=== PATIENT | female | born 1940 | race Caucasian/White ===

== ENCOUNTER 2020-02-01 07:40 | Outpatient (CLI) | payer MEDICARE, SELFPAY ==
--- NOTE | ~2020-02-01 | XR_ITS ---
XR small bowel follow through DATE: 02/01/2020 09:18 INDICATION: Abdominal pain TECHNIQUE: Serial images of the abdomen following oral ingestion of barium. Spot images of the termin al ileum. 0.2 minutes fluoroscopy time DAP: 8.70 9 images COMPARISON: None FINDINGS: There is normal transit of contrast material through the small bowel, with barium in the co reese within 50 minutes. No stricture, mucosal fold thickening, ulceration, intraluminal mass lesion, d iverticulum or pneumatosis is evident. Spot images of the terminal ileum reveal no abnormality. IMPRESSION: Normal small bowel Reviewed, dictated and finalized at [facility]. Reviewed, dictated and finalized at location A. IMPRESSION: Normal small bowel
[2020-02-01 10:03] LABS: Hematocrit 38.1 % (37.0-47.0); Hemoglobin 12.1 g/dL (12.0-15.0); Mean Corpuscular HGB Conc 31.8 g/dl (32-36); Mean Corpuscular Hemoglobin 29.8 pg (26-34); Mean Corpuscular Volume 93.8 fl (80-100); Mean Platelet Volume 9.1 fl (7.4-10.4); Platelet Count Result 342 k/mm3 (150-375); Red Blood Count 4.06 M/mm3 (4.2-5.4); White Blood Count 5.8 K/mm3 (4.5-10.0)
[2020-02-01 10:23] LABS: Alanine Aminotransferase 44 U/L (4-35); Albumin Level 4.7 g/dL (3.5-5.1); Alkaline Phosphatase 185 U/L (38-126); Aspartate Amino Transferase 44 U/L (14-36); Bilirubin,Total 0.3 mg/dL (0.2-1.3); Blood Urea Nitrogen 18 mg/dL (7-17); Calcium 9.2 mg/dL (8.4-10.2); Carbon Dioxide 30 mmol/L (22-30); Chloride 99 mmol/L (98-107); Estimated Glomerular Filt Rate > 60; Glucose 132 mg/dL (65-105); Lipase 85 U/L (23-300); Potassium 4.2 mmol/L (3.4-5.0); Sodium 134 mmol/L (137-145)
== END 2020-02-01 07:41 | disposition home or self-care (01) ==
PROVIDERS: PCP Internal Medicine; Visit Provider Internal Medicine Gastroenterology
DX: R10.9 Unspecified abdominal pain (principal)
CPT/HCPCS: 36415; 74250; 80053; 83690; 85027

== ENCOUNTER 2020-05-09 13:52 | Emergency (ER) | payer MEDICARE, SELFPAY ==
--- NOTE | ~2020-05-09 | XR_ITS ---
EXAMINATION: XR knee RT 3V DATE: 05/09/2020 14:38 INDICATION: Anterior and posterior right knee pain TECHNIQUE: Anteroposterior, oblique and lateral views of the right knee were obtained COMPARISON: None. FINDINGS: Alignment is normal. No fracture. Joint space appear normal on nonweightbearing imaging. No joint ef fusion/layering lipohemarthrosis. Soft tissues are unremarkable. IMPRESSION: 1. Negative right knee radiographs. Reviewed, dictated and finalized at location A.
[2020-05-09 13:57] VITALS: BP 186/63; PULSE 74; RESP 18; TEMP 36.7; O2SAT 99
--- NOTE | 2020-05-09 15:40 | ED.GENADULT ---
HPI - General Adult General Chief complaint: Extremity Injury, Lower Stated complaint: R leg pain Time Seen by Provider: 05/09/20 15:06 Source: patient History of Present Illness HPI narrative: Patient is a 79 y/o female complaining of sharp right knee pain radiating to right lower leg for several month. She states that pain is worse today. She denies any recent injury. She rates her pain as 5/10 at rest, but her pain is 9/10 when she tries to put weight on her leg. Weight bearing and ambulation aggravates her pain. Related Data Home Medications Medication Instructions Recorded Confirmed clopidogrel 05/09/20 epinephrine 05/09/20 gabapentin 05/09/20 glimepiride mg 05/09/20 glimepiride mg 05/09/20 levothyroxine [Synthroid] 05/09/20 nebivolol [Bystolic] mg 05/09/20 valsartan 05/09/20 Allergies Allergy/AdvReac Type Severity Reaction Status Date / Time codeine AdvReac Intermediate SEVERE Verified 05/09/20 14:20 NAUSEA/VOMITING NSAIDS (Non-Steroidal AdvReac Intermediate NAUSEA AND Verified 05/09/20 14:20 Anti-Inflamma GASTRIC PAIN PENTAZOCINE LACTATE AdvReac Severe UNCONCIOUS Uncoded 05/09/20 14:20 FOR 2 DAYS MEPERIDINE HCL AdvReac Mild Nausea Uncoded 05/09/20 14:20 Review of Systems Constitutional: Constitutional: Denies chills, Denies fever(s), Denies headache(s) and Denies weakness Eyes: Eyes: Denies blurry vision ENT: Denies headache(s) and Denies neck pain Cardiovascular: Cardiovascular: Denies chest pain and Denies dyspnea Respiratory: Respiratory: Denies cough and Denies dyspnea Gastrointestinal: Gastrointestinal: Denies abdominal pain, Denies diarrhea, Denies nausea and Denies vomiting Genitourinary: Genitourinary: Denies hematuria and Denies dysuria Musculoskeletal: Musculoskeletal: Denies back pain, Reports arthralgias (right knee pain) and Denies neck pain Neurologic: Denies headache(s) and Denies weakness [facility] Social History Social History Gender identity (if verbalized by the patient): Female Exam Const: General: no acute distress and well developed Orientation/consciousness: oriented to person, oriented to place, oriented to time and patient oriented x3 HENMT: Head: normocephalic Ears: external ears normal General nose exam: Normal external nose present Eyes: General: appearance normal, both eyes and all related structures Conjunctivae: conjunctivae normal Neck: Neck: normal visual inspection and full ROM Chest: Chest palpation & inspection: normal inspection of the chest and no tenderness Resp: Effort & Inspection: normal respiratory effort and able to speak in complete sentences Cardio: Rate: regular rate Rhythm: regular rhythm GI: GI Palp: No abdominal tenderness and Yes Soft to palpation Skin: General skin exam: normal color and turgor normal Neuro: General: oriented to person, oriented to place, oriented to time and patient oriented x3 Cognition (Neuro): normal cognition Extrem: General: normal to inspection, full ROM and no pedal edema Right lower extremity: knee Details: tenderness Psych: Appearance: grossly normal Mental Status: mental status grossly normal Affect: normal affect Course Reevaluation(s) Reevaluation #1: Advised patient to have labs drawn, but patient refuses. Also offered patient knee brace, however, patient states that she already has one at home. Date: 05/09/20 Vital Signs Vital signs: Vital Signs Temperature 36.7 C 05/09/20 13:57 Pulse Rate 74 05/09/20 13:57 Respiratory Rate 18 05/09/20 13:57 Blood Pressure 186/63 H 05/09/20 13:57 Pulse Oximetry 99 05/09/20 13:57 Temperature 36.7 C 05/09/20 13:57 Pulse Rate 74 05/09/20 13:57 Respiratory Rate 18 05/09/20 13:57 Blood Pressure 186/63 H 05/09/20 13:57 Pulse Oximetry 99 05/09/20 13:57 Medical Decision Making Vital Signs Vital Signs: Vital Signs Temperature 36.7 C 05/09/20 13:57 Pulse Rate 74 05/09/20 13:57
--- NOTE | 2020-05-09 15:52 | PC.NURSE ---
Patient refusing labs to be drawn. Dr. Arnold notified.
== END 2020-05-09 16:20 | disposition home or self-care (01) ==
PROVIDERS: Emergency Provider Emergency Medicine
DX: M25.561 Pain in right knee (principal); I10 Essential (primary) hypertension
CPT/HCPCS: 73562; 99283

== ENCOUNTER 2021-07-08 17:44 | Inpatient (IN) | payer MEDICARE, SELFPAY ==
--- NOTE | ~2021-07-08 | XR_ITS ---
EXAMINATION: XR surgery orthopedic EXAM DATE: 07/10/2021 12:02 INDICATION: LEFT HIP PINNING TECHNIQUE: Fluoroscopy used during left hip lag screw insertion. performed by Jennifer Frost. Radiologist was not present for the imaging or procedure. Total fluoroscopic time of 46.5 second s. The DAP for this procedure was 0.18 mGym2. A total of 3 images sent to PACS from the exam. FINDINGS: Images demonstrate 3 lag screws bridging a left hip subcapital femoral neck fracture. Emily elate with procedure note. IMPRESSION: Fluoroscopy used during left hip subcapital femoral neck fixation. Reviewed, dictated and finalized at location B.
--- NOTE | ~2021-07-08 | XR_ITS ---
EXAMINATION: XR hip LT 2V w AP pelvis DATE: 07/08/2021 21:49 INDICATION: Left hip fracture. TECHNIQUE: An anteroposterior view pelvis and 2 views of left hip were obtained. COMPARISON: Left hip radiographs 06/29/2021 FINDINGS: There is a subcapital fracture of left femoral neck with impaction. There is mild osteoarth ritis of the hips. There is severe lumbar spondylosis. IMPRESSION: 1. Subcapital fracture of left femoral neck. 2. Mild osteoarthritis of the hips. Reviewed, dictated and finalized at location A.
--- NOTE | ~2021-07-08 | XR_ITS ---
EXAMINATION: XR chest 1V DATE: 07/08/2021 21:49 INDICATION: Hypertension. Preop. TECHNIQUE: A single frontal view of the chest was obtained. COMPARISON: Chest single view 01/31/2019 FINDINGS: The patient is rotated to her right. There is no pneumonia, pleural effusion, or pneumothor ax. The heart size is normal. IMPRESSION: 1. No acute cardiopulmonary disease. Reviewed, dictated and finalized at location A.
[2021-07-08 18:13] VITALS: BP 168/82; PULSE 112; RESP 18; TEMP 36.9; O2SAT 98
--- NOTE | 2021-07-08 18:21 | ECG_ITS ---
Measurements Intervals [place] Rate: 103 P: 56 [place]: 159 QRS: 44 QRSD: 97 T: 48 QT: 321 QTc: 421 Interpretive Statements SINUS TACHYCARDIA POSSIBLE LEFT ATRIAL ENLARGEMENT BORDERLINE R WAVE PROGRESSION, ANTERIOR LEADS BORDERLINE ST-T WAVE ABNORMALITY- INF/LAT LEADS BASELINE ARTIFACT- I, III, AVL BORDERLINE ECG Electronically Signed On 07-08-2021 19:06:32 CDT by Panchito Garcia D.O.
[2021-07-08 18:44] LABS: Basophils Absolute Auto 0.1 K/mm3 (0.0-0.1); Basophils Percent Auto 1.2 % (0.2-1.2); Eosinophils Absolute Auto 0.3 K/mm3 (0-0.3); Eosinophils Percent Auto 3.7 % (0-4.4); Hematocrit 36.9 % (37.0-47.0); Immature Granulocyte Absolute 0.02 K/mm3 (0.00-0.031); Immature Granulocyte Percent A 0.3 % (0-0.5); Lymphocytes Absolute Auto 1.84 K/mm3 (0.9-3.2); Lymphocytes Percent Auto 25.4 % (18.3-44.2); Mean Corpuscular HGB Conc 32.5 g/dl (32-36); Mean Corpuscular Hemoglobin 31.6 pg (26-34); Mean Corpuscular Volume 97.1 fl (80-100); Mean Platelet Volume 8.6 fl (7.4-10.4); Monocytes Absolute Auto 0.7 K/mm3 (0.1-0.6); Monocytes Percent Auto 9.4 % (2.6-8.5); Neutrophils Absolute Auto 4.4 K/mm3 (1.3-6.7); Platelet Count Result 412 k/mm3 (150-375); Red Cell Distribution Width 13.3 % (11.5-14.5); White Blood Count 7.3 K/mm3 (4.5-10.0)
[2021-07-08 18:53] LABS: Alanine Aminotransferase 21 U/L (4-35); Albumin Level 4.6 g/dL (3.5-5.1); Alkaline Phosphatase 172 U/L (38-126); Anion Gap 7 mmol/L (8-16); Aspartate Amino Transferase 31 U/L (14-36); Bilirubin,Total 0.3 mg/dL (0.2-1.3); Blood Urea Nitrogen 21 mg/dL (7-17); Calcium 9.5 mg/dL (8.4-10.2); Carbon Dioxide 30 mmol/L (22-30); Chloride 101 mmol/L (98-107); Estimated CRCL calculation 45 ml/min; Estimated Glomerular Filt Rate > 60; Glucose 210 mg/dL (65-110); Potassium 3.8 mmol/L (3.4-5.0); Sodium 138 mmol/L (137-145)
[2021-07-08 21:32] VITALS: BP 175/93; PULSE 86; RESP 18; TEMP 36.7; O2SAT 99
[2021-07-08 22:19] LABS: INR 0.9; Prothrombin Time 12.4 Seconds (11.1-14.7)
[2021-07-08 22:20] LABS: Partial Thromboplastin Time 31.5 SECONDS (22.3-36.8)
--- NOTE | 2021-07-08 22:27 | PC.NURSE ---
Per EDP Marc, no repeat EKG needed.
[2021-07-08] MEDS: MORPHINE SULFATE (*CRX) 4 MG/ML INJ IV PUSH (22:31)
--- NOTE | 2021-07-08 22:43 | ED.LOWEXIN ---
HPI - Extremity Injury (Lower) General Chief Complaint: Extremity Injury, Lower Stated Complaint: fx hip Time Seen by Provider: 07/08/21 21:17 History of Present Illness HPI Narrative: Patient is a 80-year-old female who presents ER with left hip fracture. She fell on 06/17/2021. She had pain and was seen at [facility]. She was told she had a bruise. She later followed up with her PCP on 06/29 who diagnosed her with a subcapital fracture left hip. She attempted to follow-up with an orthopedic surgeon who did not think she needed surgery but then they changed her mind. When she went back to be evaluated to possibly be admitted she waited for over 6 hours and was never seen thus she left. She then contacted Dr. Lopez's office today. He reviewed the images and referred her here for further evaluation. She has had no additional injury. No numbness or tingling to lower extremity. She is trying not to bear weight by using a cane. Related Data Home Medications Medication Instructions Recorded Confirmed clopidogrel 05/09/20 epinephrine 05/09/20 gabapentin 05/09/20 glimepiride mg 05/09/20 glimepiride mg 05/09/20 levothyroxine [Synthroid] 05/09/20 nebivolol [Bystolic] mg 05/09/20 valsartan 05/09/20 Allergies Allergy/AdvReac Type Severity Reaction Status Date / Time codeine AdvReac Intermediate SEVERE Verified 05/09/20 14:20 NAUSEA/VOMITING NSAIDS (Non-Steroidal AdvReac Intermediate NAUSEA AND Verified 05/09/20 14:20 Anti-Inflamma GASTRIC PAIN PENTAZOCINE LACTATE AdvReac Severe UNCONCIOUS Uncoded 05/09/20 14:20 FOR 2 DAYS MEPERIDINE HCL AdvReac Mild Nausea Uncoded 05/09/20 14:20 Review of Systems Review of Systems: All systems reviewed & are unremarkable except as noted in HPI and below Constitutional: Constitutional: Denies chills, Denies fever(s) and Denies weakness Respiratory: Respiratory: Denies cough and Denies dyspnea Gastrointestinal: Gastrointestinal: Denies abdominal pain, Denies nausea and Denies vomiting Musculoskeletal: Musculoskeletal: Reports arthralgias, Denies joint swelling and Denies muscle cramps Neurologic: Denies syncope, Denies focal weakness and Denies numbness [facility] Past Medical History Medical History (Updated 07/08/21 @ 22:53 by Maico Tran MD) CVA (cerebral vascular accident) Diabetes Diverticulitis Hypertension Pancreatitis Surgical History Surgical History (Updated 07/08/21 @ 22:52 by Maico Tran MD) History of appendectomy History of thyroidectomy History of tonsillectomy Social History Social History (Updated 07/08/21 @ 22:50 by Maico Tran MD) Smoking status: Never smoker Gender identity (if verbalized by the patient): Female Exam Narrative: GENERAL: Well-appearing, well-nourished, and in no acute distress. HEAD: Normocephalic, atraumatic. EYES: PERRL and EOMI. CHEST: Clear to auscultation. No respiratory distress. HEART: Regular rate and rhythm. Normal peripheral pulses. ABDOMEN: Soft, nontender, nondistended. EXTREMITIES: No reproducible tenderness at the left hip, left hip most comfortable in passive flexion. Range of motion slightly limited due to pain. No edema. SKIN: Warm, dry, no rash. NEURO: Alert and oriented x3. Course Course Emergency Course: Discussed with orthopedic surgery. N.p.o. at midnight. Admit to hospitalist service. Vital Signs Vital signs: Vital Signs Temperature 98.4 F 07/08/21 18:13 Pulse Rate 112 H 07/08/21 18:13 Respiratory Rate 18 07/08/21 18:13 Blood Pressure 168/82 H 07/08/21 18:13 Pulse Oximetry 98 07/08/21 18:13 Temperature 98.1 F 07/08/21 21:32 Pulse Rate 86 07/08/21 21:32 Respiratory Rate 18 07/08/21 21:32 Blood Pressure 175/93 H 07/08/21 21:32 Pulse Oximetry 99 07/08/21 21:32 MDM - Extremity Injury (Lower) Lab Data Result diagrams: 07/08/21 18:37 07/08/21 18:36 Labs: Lab Results 0
[2021-07-08 22:55] VITALS: BP 163/70; PULSE 91; RESP 18; O2SAT 99
--- NOTE | 2021-07-08 23:15 | PM.IMHP ---
H&P: HPI History of Present Illness Date/Time: 07/08/21 23:15 Chief Complaint: Hip fx Narrative: This is a 80-year-old female with past medical history significant for type 2 diabetes mellitus control with p.o. medications, hypothyroidism, hypertension, stroke, diverticulitis. Patient sustained a mechanical fall on June 16 and has had increasingly worsening pain on her left side hip has been able to bear weight on it however. She was seen and evaluated at outside hospital where x-rays did not show hip fracture and patient was sent home after several days and no improvement of the pain in spite of being on a muscle relaxant and pain medication she went back to see her primary care physician who this time prescribed dilaudid however the latter make her stomach upset and she decided to go see an orthopedic surgeon hold transportation logistics internship stated that her fracture was nonoperable but a 2nd opinion showed that she needs surgery then patient presented to our emergency room. Patient was in her usual state of health up until this. No fevers, no rigors, no chills, no dizziness, no lightheadedness, no chest pain, no shortness of breath, no cough, no sputum production. Preliminary workup was significant for left subcapital hip fracture. Review of Systems Review of Systems: Left hip pain Constitutional: Constitutional: Denies chills, Denies fatigue, Denies fever(s), Denies lethargy and Denies weakness Eyes: Eyes: Denies change in vision ENT: Denies dysphagia, Denies vertigo, Denies dizziness, Denies nasal congestion, Denies nasal discharge, Denies nasal obstruction and Denies odynophagia Cardiovascular: Cardiovascular: Denies irregular heart rhythm, Denies lightheadedness, Denies radiating jaw, neck or arm pain, Denies palpitations, Denies dyspnea and Denies dyspnea on exertion Respiratory: Respiratory: Denies cough, Denies dyspnea and Denies wheezing Gastrointestinal: Gastrointestinal: Denies dyspepsia, Denies heartburn, Denies diarrhea, Denies nausea and Denies vomiting Genitourinary: Genitourinary: Reports no additional female genitourinary complaints Musculoskeletal: Musculoskeletal: Reports arthralgias Comments: Left hip Integumentary/Breasts: Skin/Breast: Reports system reviewed and no additional complaints, except as docu Neurologic: Reports system reviewed and no additional complaints, except as documented Psychiatric: Psychiatric: Reports no additional psychiatric complaints Endocrine: Endocrine: Reports no additional endocrine complaints Hematologic/Lymphatic: Hematologic/Lymphatic: Reports no additional hematologic/lymphatic complaints Allergic/Immunologic: Allergic/Immunologic: Reports no additional allergic/immunologic complaints [facility] Past Medical History Medical History (Updated 07/09/21 @ 03:20 by Willy Miramontes MD) CVA (cerebral vascular accident) Diabetes Diverticulitis Hypertension Pancreatitis Surgical History Surgical History (Updated 07/08/21 @ 22:52 by Maico Tran MD) History of appendectomy History of thyroidectomy History of tonsillectomy Social History Social History (Updated 07/08/21 @ 22:50 by Maico Tran MD) Smoking status: Never smoker Alcohol intake: never Substance use: never Gender identity (if verbalized by the patient): Female Spiritual care concerns: No Meds Home Medications and Allergies Home Medications Medication Instructions Recorded Confirmed Type clopidogrel 05/09/20 History epinephrine 05/09/20 History gabapentin 05/09/20 History glimepiride mg 05/09/20 History glimepiride mg 05/09/20 History levothyroxine [Synthroid] 05/09/20 History nebivolol [Bystolic] mg 05/09/20 History valsartan 05/09/20 History Allergies Allergy/AdvReac Type Severity Reaction Status Date / Time codeine AdvReac Intermediate SEVERE Verified 05/09/20 14:20 NAUSEA/VOMITING NSAIDS (Non-Steroidal AdvReac Intermediate NAUSEA AND Verified 05/09/20 14:20 An
[2021-07-09] MEDS: SODIUM CHLORIDE 0.9% IV 1,000 ML 125 ML IV CONT (00:26)
--- NOTE | 2021-07-09 01:14 | PC.NURSE ---
This patient, Hawa Larson, was admitted to Medical Room 245-. Patient/family oriented to hospital policies and general routines including ID bracelet, bed and alarms, visiting hours, pain management, procedures, bathroom and other care routines, personal items, smoking policy, room service/diet, and visiting hours. Information on how to activate the Rapid Response Team has been discussed. Patient/Family are encouraged to report perceived risks to care and to ask questions if they do not understand what they are told or what they should do.
[2021-07-09 02:00] VITALS: BP 164/59; PULSE 70; RESP 20; TEMP 36.3; O2SAT 98
[2021-07-09 06:00] VITALS: BP 146/70; PULSE 76; RESP 20; TEMP 36.4; O2SAT 98; BMI 23.4
[2021-07-09 08:31] LABS: Hematocrit 32.8 % (37.0-47.0); Hemoglobin 10.5 g/dL (12.0-15.0); Mean Corpuscular Hemoglobin 31.3 pg (26-34); Mean Corpuscular Volume 97.9 fl (80-100); Mean Platelet Volume 8.6 fl (7.4-10.4); Platelet Count Result 347 k/mm3 (150-375); Red Blood Count 3.35 M/mm3 (4.2-5.4); Red Cell Distribution Width 13.2 % (11.5-14.5); White Blood Count 6.4 K/mm3 (4.5-10.0)
[2021-07-09 08:54] LABS: Anion Gap 9 mmol/L (8-16); Blood Urea Nitrogen 14 mg/dL (7-17); Calcium 8.8 mg/dL (8.4-10.2); Carbon Dioxide 29 mmol/L (22-30); Chloride 103 mmol/L (98-107); Estimated CRCL calculation 70 ml/min; Estimated Glomerular Filt Rate > 60; Glucose 167 mg/dL (65-110); Potassium 4.1 mmol/L (3.4-5.0); Sodium 141 mmol/L (137-145)
[2021-07-09 09:19] LABS: Glucose Point of Care 161 mg/dl (65-105)
[2021-07-09] MEDS: SODIUM CHLORIDE 0.9% IV 1,000 ML 65 ML IV CONT (09:39)
--- NOTE | 2021-07-09 10:12 | PM.IMPN ---
Progress Note: A&P Assessment and Plan (1) Fracture of hip: Code(s): S72.009A - Fracture of unspecified part of neck of unspecified femur, initial encounter for closed fracture Status: Acute Assessment and Plan: Secondary to fall which occurred on 06/17/21. She had a collision injury with her granddaughter while playing hide and seek. She has been seen by outside hospital, PCP, and orthopedic surgery with no intervention at this point. Hip/pelvis x-ray showed come subcapital fracture of left femoral neck appreciate orthopedic surgery consultation analgesics available as needed for pain NPO at this time. continue IV fluids while NPO, discontinue once diet is advanced. holding Plavix, will await surgical recommendations (2) Hypertension: Code(s): I10 - Essential (primary) hypertension Status: Inactive Assessment and Plan: blood pressure reviewed and has been slightly elevated above target, likely worsened by pain. Last BP 146/70. Home valsartan is non formulary. Will switch to losartan monitor blood pressure trends and adjust medication regimen as needed (3) Diabetes: Code(s): E11.9 - Type 2 diabetes mellitus without complications Status: Inactive Assessment and Plan: last blood sugar 161 initiate Accu-Cheks, sliding scale insulin, hypoglycemic protocol check updated A1c hold home glimepiride (4) Hypothyroidism: Code(s): E03.9 - Hypothyroidism, unspecified Status: Acute Assessment and Plan: Continue levothyroxine Check TSH Subjective Date/time seen: 07/09/21 10:12 Interval history: Date of service: 07/09/2021 Hawa Larson is a 80-year-old female with history of diabetes mellitus, hypertension, CVA, and pancreatitis who is seen in follow-up for left hip fracture. She reports her hip pain has constantly been between 7-9/10. Currently rated 8/10. She has pain in the hip, groin, and thigh. Pain is worse with movement. She also has low back pain which she relates to being in bed for prolonged time. She denies nausea, vomiting, fever, or chills. She feels very hungry and has not eaten anything today. She had a bowel movement 2 days ago. Denies urinary symptoms But reports she has been urinating frequently due to IV fluids. Denies shortness of breath, cough, chest pain, or palpitations. Review of Systems Review of Systems: All systems reviewed & are unremarkable except as noted in HPI and below Exam Narrative: Ms. Larson is a thin, well-appearing 80-year-old female who is lying supine in bed. she appears comfortable and is in NARD. Neuro: awake, alert and oriented x4, speech clear, no focal neuro deficits noted HEENMT: normocephalic, atraumatic, EOMI, sclerae anicteric, moist oral mucosa Neck: supple, no lymphadenopathy Respiratory: clear to auscultation bilaterally, nonlabored breathing Cardio: regular rate, regular rhythm with S1-S2 Abdomen: nondistended, normoactive bowel sounds, soft, nontender to palpation Extremities: left hip and upper thigh tender to palpation without bruising. BLE no edema, erythema, cyanosis, clubbing, or tenderness to palpation. Neurovascularly intact. DP pulses 2+ bilaterally. Able to wiggle toes bilaterally Skin: no rashes or lesions, warm and dry Psych: appropriate mood and affect, judgment and insight intact Objective Data Vital Signs Vital Signs: Vital Signs - 24 hr 07/08/21 18:13 07/08/21 21:32 07/08/21 22:55 Temperature 98.4 F 98.1 F Pulse Rate 112 H 86 91 Respiratory Rate 18 18 18 Blood Pressure 168/82 H 175/93 H 163/70 H Pulse Oximetry 98 99 99 07/09/21 02:00 07/09/21 06:00 Temperature 97.3 F L 97.6 F Pulse Rate 70 76 Respiratory Rate 20 20 Blood Pressure 164/59 H 146/70 H Pulse Oximetry 98 98 Intake/Output Intake/Output: Intake & Output 07/06/21 07/07/21 07/08/21 07/09/21 23:59 23:59 23:59 23:59 Intake Total 1100 Output
[2021-07-09 11:18] LABS: Hemoglobin A1C 7.8 % (<5.7)
--- NOTE | 2021-07-09 11:59 | PM.CNOR ---
Assessment and Plan Assessment and plan (1) Subcapital fracture of neck of left femur: Qualifiers: Encounter type: initial encounter Fracture type: closed Qualified Code(s): S72.012A - Unspecified intracapsular fracture of left femur, initial encounter for closed fracture Code(s): S72.012A - Unspecified intracapsular fracture of left femur, initial encounter for closed fracture Status: Acute Assessment and Plan: 72-year-old female with an impacted left subcapital femoral neck fracture. This happened three weeks ago so is really subacute. I do believe that pinning in situ is still going to be her best option which will allow for her to progress her activities a bit more quickly. Risks and potential complications were discussed in detail and questions answered. Expected postoperative course reviewed as well. Plan on proceeding tomorrow. Thank you for the consultation. History of Present Illness HPI Consult date: 07/09/21 Consult reason: fracture Chief complaint: Left hip fracture Narrative: 72-year-old female who fell at home when she had a collision with her granddaughter about three weeks ago. She was subsequently x-rayed and found to have an impacted left femoral neck fracture. Ultimately she made her way to the [facility]. She was admitted and is here for further evaluation and treatment of this subacute left femoral neck fracture. No other injuries with this occurrence. Is otherwise reasonably healthy. History of stroke following a concussion several years ago. She is on Plavix chronically. It has been held. Review of Systems Constitutional: Constitutional: Reports no additional constitutional complaints, Denies excessive sweating and Denies fatigue Eyes: Eyes: Reports no additional eye complaints ENT: Reports system reviewed and no additional complaints, except as documented Cardiovascular: Cardiovascular: Denies chest pain at rest Respiratory: Respiratory: Reports no additional respiratory complaints Gastrointestinal: Gastrointestinal: Reports no additional gastrointestinal complaints Musculoskeletal: Musculoskeletal: Reports as per HPI Integumentary/Breasts: Skin/Breast: Reports system reviewed and no additional complaints, except as docu Neurologic: Reports as per HPI Endocrine: Endocrine: Denies excessive sweating Hematologic/Lymphatic: Hematologic/Lymphatic: Denies easy bleeding PMFSH Past Medical History Medical History (Updated 07/09/21 @ 12:06 by Alexander Lopez MD) CVA (cerebral vascular accident) Diabetes Diverticulitis Hypertension Pancreatitis Subcapital fracture of neck of left femur Surgical History Surgical History (Updated 07/09/21 @ 12:02 by Alexander Lopez MD) History of appendectomy History of arthroscopy of right knee History of thyroidectomy History of tonsillectomy Social History Social History Smoking status: Never smoker Alcohol intake: never Substance use: never Gender identity (if verbalized by the patient): Female Spiritual care concerns: No Meds Home Medications and Allergies Home Medications Medication Instructions Recorded Confirmed Type clopidogrel 75 mg PO EVERY OTHER DAY 05/09/20 07/09/21 History gabapentin 100 mg PO BID 05/09/20 07/09/21 History glimepiride 1 mg PO QPM 05/09/20 07/09/21 History glimepiride 2 mg PO DAILY 05/09/20 07/09/21 History levothyroxine [Synthroid] 125 mcg PO DAILY 05/09/20 07/09/21 History valsartan 320 mg PO DAILY 05/09/20 07/09/21 History cetirizine [All Day Allergy 10 mg PO DAILY 07/09/21 07/09/21 History (cetirizine)] diclofenac epolamine 1 patch TRANSDERMAL BID PRN 07/09/21 07/09/21 History Allergies Allergy/AdvReac Type Severity Reaction Status Date / Time codeine AdvReac Intermediate SEVERE Verified 05/09/20 14:20 NAUSEA/VOMITING NSAIDS (Non-Steroidal AdvReac Intermediate NAUSEA AND Verified 05/09/20 14:20
[2021-07-09] MEDS: LOSARTAN POTASSIUM 100 MG TABLET PO (12:13)
[2021-07-09] MEDS: LEVOTHYROXINE SODIUM 125 MCG TABLET PO (12:13)
[2021-07-09] MEDS: GABAPENTIN 100 MG CAPSULE PO ×2 (12:13→17:17)
[2021-07-09 12:38] LABS: Glucose Point of Care 165 mg/dl (65-105)
[2021-07-09 14:00] VITALS: BP 168/84; PULSE 88; RESP 20; TEMP 36.4; O2SAT 98
--- NOTE | 2021-07-09 16:47 | WPDANESEPPF ---
Anes - Initial Pre Proc Eval Procedure: Operation Date: 07/10/21 09:30 Proposed Procedures p Left Hip Pinning - Alexander Lopez MD Date/Time: 07/09/21 16:47 Surgeon: Kassie Sandoval PA-C Pre Op Diagnosis: Left hip fracture Patient Data Age: 80 Gender: F Height: 1.65 m Weight: 64 kg Last Vital Signs Temp 36.4 C 07/09/21 14:00 Pulse 88 07/09/21 14:00 Resp 20 07/09/21 14:00 BP 168/84 H 07/09/21 14:00 Pulse Ox 98 07/09/21 14:00 Allergies Allergy/AdvReac Type Severity Reaction Status Date / Time codeine AdvReac Intermediate SEVERE Verified 05/09/20 14:20 NAUSEA/VOMITING NSAIDS (Non-Steroidal AdvReac Intermediate NAUSEA AND Verified 05/09/20 14:20 Anti-Inflamma GASTRIC PAIN PENTAZOCINE LACTATE AdvReac Severe UNCONCIOUS Uncoded 05/09/20 14:20 FOR 2 DAYS MEPERIDINE HCL AdvReac Mild Nausea Uncoded 05/09/20 14:20 Home Medications Medication Instructions Recorded Confirmed Type clopidogrel 75 mg PO EVERY OTHER DAY 05/09/20 07/09/21 History gabapentin 100 mg PO BID 05/09/20 07/09/21 History glimepiride 1 mg PO QPM 05/09/20 07/09/21 History glimepiride 2 mg PO DAILY 05/09/20 07/09/21 History levothyroxine [Synthroid] 125 mcg PO DAILY 05/09/20 07/09/21 History valsartan 320 mg PO DAILY 05/09/20 07/09/21 History cetirizine [All Day Allergy 10 mg PO DAILY 07/09/21 07/09/21 History (cetirizine)] diclofenac epolamine 1 patch TRANSDERMAL BID PRN 07/09/21 07/09/21 History Laboratory Tests 07/08/21 07/08/21 07/08/21 18:36 18:37 22:04 WBC 7.3 K/mm3 K/mm3 (4.5-10.0) RBC 3.80 M/mm3 L M/mm3 (4.2-5.4) Hgb 12.0 g/dL g/dL (12.0-15.0) Hct 36.9 % L % (37.0-47.0) MCV 97.1 fl fl (80-100) MCH 31.6 pg pg (26-34) MCHC 32.5 g/dl g/dl (32-36) RDW 13.3 % % (11.5-14.5) Plt Count 412 k/mm3 H k/mm3 (150-375) MPV 8.6 fl fl (7.4-10.4) Immature Gran % (Auto) 0.3 % % (0-0.5) Neut % (Auto) 60.0 % % (45.5-73.1) Lymph % (Auto) 25.4 % % (18.3-44.2) [place] % (Auto) 9.4 % H % (2.6-8.5) Eos % (Auto) 3.7 % % (0-4.4) Baso % (Auto) 1.2 % % (0.2-1.2) Lymph # (Auto) 1.84 K/mm3 K/mm3 (0.9-3.2) [place] # (Auto) 0.7 K/mm3 H K/mm3 (0.1-0.6) Eos # (Auto) 0.3 K/mm3 K/mm3 (0-0.3) Baso # (Auto) 0.1 K/mm3 K/mm3 (0.0-0.1) Abs Immat Gran (auto) 0.02 K/mm3 K/mm3 (0.00-0.031) Absolute Neuts (auto) 4.4 K/mm3 K/mm3 (1.3-6.7) Absolute Nucleated RBC 0.0 K/mm3 K/mm3 (0.0-0.012) Nucleated RBC % 0.0 % % (0.0-0.2) PT 12.4 Seconds Seconds (11.1-14.7) INR 0.9 APTT 31.5 SECONDS SECONDS (22.3-36.8) Sodium 138 mmol/L mmol/L (137-145) Potassium 3.8 mmol/L mmol/L (3.4-5.0) Chloride 101 mmol/L mmol/L (98-107) Carbon Dioxide 30 mmol/L mmol/L (22-30) Anion Gap 7 mmol/L L mmol/L (8-16) BUN 21 mg/dL H mg/dL (7-17) Creatinine 0.80 mg/dL mg/dL (0.7-1.0) Estim Creat Clear Calc 45 ml/min ml/min Estimated GFR > 60 (59 - ) Glucose 210 mg/dL H mg/dL (65-110) POC Capillary Glucose Hemoglobin A1c Calcium 9.5 mg/dL mg/dL (8.4-10.2) Total Bilirubin 0.3 mg/dL mg/dL (0.2-1.3) AST 31 U/L U/L (14-36) ALT 21 U/L U/L (4-35) Alkaline Phosphatase 172 U/L H U/L (38-126) Total Protein 8.0 g/dL g/dL (6.3-8.2) Albumin 4.6 g/dL g/dL (3.5-5.1) 07/09/21 07/09/21 07/09/21 08:26 08:26 08:26 WBC 6.4 K/mm3 K/mm3 (4.5-10.0) RBC 3.35 M/mm3 L M/mm3 (4.2-5.4) Hgb 10.5 g/dL L g/dL (12.0-15.0) Hct 32.8 % L % (37.0-47.0) MCV 97.9 fl fl (80-100) MCH 31.3 pg pg (26-34
[2021-07-09] MEDS: HYDROcodone/acetaminophen (*CRX) 10-325 MG TABLET 1 TAB PO ×2 (17:16→23:25)
[2021-07-09] MEDS: INSULIN ASPART (*BKC) 100 UNITS/ML SUB-Q (17:27)
[2021-07-09 17:33] LABS: Glucose Point of Care 202 mg/dl (65-105)
--- NOTE | 2021-07-09 17:36 | WPDANESEPP ---
Anes - Eval Pre Procedure Procedure: Operation Date: 07/10/21 09:30 Proposed Procedures p Left Hip Pinning - Alexander Lopez MD Date/Time: 07/09/21 17:36 Pre Op Diagnosis: Left hip fracture Patient Data Age: 80 Gender: F Height: 1.65 m Weight: 64 kg Last Vital Signs Temp 97.6 F 07/09/21 14:00 Pulse 88 07/09/21 14:00 Resp 20 07/09/21 14:00 BP 168/84 H 07/09/21 14:00 Pulse Ox 98 07/09/21 14:00 Allergies Allergy/AdvReac Type Severity Reaction Status Date / Time codeine AdvReac Intermediate SEVERE Verified 05/09/20 14:20 NAUSEA/VOMITING NSAIDS (Non-Steroidal AdvReac Intermediate NAUSEA AND Verified 05/09/20 14:20 Anti-Inflamma GASTRIC PAIN PENTAZOCINE LACTATE AdvReac Severe UNCONCIOUS Uncoded 05/09/20 14:20 FOR 2 DAYS MEPERIDINE HCL AdvReac Mild Nausea Uncoded 05/09/20 14:20 Home Medications Medication Instructions Recorded Confirmed Type clopidogrel 75 mg PO EVERY OTHER DAY 05/09/20 07/09/21 History gabapentin 100 mg PO BID 05/09/20 07/09/21 History glimepiride 1 mg PO QPM 05/09/20 07/09/21 History glimepiride 2 mg PO DAILY 05/09/20 07/09/21 History levothyroxine [Synthroid] 125 mcg PO DAILY 05/09/20 07/09/21 History valsartan 320 mg PO DAILY 05/09/20 07/09/21 History cetirizine [All Day Allergy 10 mg PO DAILY 07/09/21 07/09/21 History (cetirizine)] diclofenac epolamine 1 patch TRANSDERMAL BID PRN 07/09/21 07/09/21 History Laboratory Tests 07/08/21 07/08/21 07/08/21 18:36 18:37 22:04 WBC 7.3 K/mm3 K/mm3 (4.5-10.0) RBC 3.80 M/mm3 L M/mm3 (4.2-5.4) Hgb 12.0 g/dL g/dL (12.0-15.0) Hct 36.9 % L % (37.0-47.0) MCV 97.1 fl fl (80-100) MCH 31.6 pg pg (26-34) MCHC 32.5 g/dl g/dl (32-36) RDW 13.3 % % (11.5-14.5) Plt Count 412 k/mm3 H k/mm3 (150-375) MPV 8.6 fl fl (7.4-10.4) Immature Gran % (Auto) 0.3 % % (0-0.5) Neut % (Auto) 60.0 % % (45.5-73.1) Lymph % (Auto) 25.4 % % (18.3-44.2) [place] % (Auto) 9.4 % H % (2.6-8.5) Eos % (Auto) 3.7 % % (0-4.4) Baso % (Auto) 1.2 % % (0.2-1.2) Lymph # (Auto) 1.84 K/mm3 K/mm3 (0.9-3.2) [place] # (Auto) 0.7 K/mm3 H K/mm3 (0.1-0.6) Eos # (Auto) 0.3 K/mm3 K/mm3 (0-0.3) Baso # (Auto) 0.1 K/mm3 K/mm3 (0.0-0.1) Abs Immat Gran (auto) 0.02 K/mm3 K/mm3 (0.00-0.031) Absolute Neuts (auto) 4.4 K/mm3 K/mm3 (1.3-6.7) Absolute Nucleated RBC 0.0 K/mm3 K/mm3 (0.0-0.012) Nucleated RBC % 0.0 % % (0.0-0.2) PT 12.4 Seconds Seconds (11.1-14.7) INR 0.9 APTT 31.5 SECONDS SECONDS (22.3-36.8) Sodium 138 mmol/L mmol/L (137-145) Potassium 3.8 mmol/L mmol/L (3.4-5.0) Chloride 101 mmol/L mmol/L (98-107) Carbon Dioxide 30 mmol/L mmol/L (22-30) Anion Gap 7 mmol/L L mmol/L (8-16) BUN 21 mg/dL H mg/dL (7-17) Creatinine 0.80 mg/dL mg/dL (0.7-1.0) Estim Creat Clear Calc 45 ml/min ml/min Estimated GFR > 60 (59 - ) Glucose 210 mg/dL H mg/dL (65-110) POC Capillary Glucose Hemoglobin A1c Calcium 9.5 mg/dL mg/dL (8.4-10.2) Total Bilirubin 0.3 mg/dL mg/dL (0.2-1.3) AST 31 U/L U/L (14-36) ALT 21 U/L U/L (4-35) Alkaline Phosphatase 172 U/L H U/L (38-126) Total Protein 8.0 g/dL g/dL (6.3-8.2) Albumin 4.6 g/dL g/dL (3.5-5.1) 07/09/21 07/09/21 07/09/21 08:26 08:26 08:26 WBC 6.4 K/mm3 K/mm3 (4.5-10.0) RBC 3.35 M/mm3 L M/mm3 (4.2-5.4) Hgb 10.5 g/dL L g/dL (12.0-15.0) Hct 32.8 % L % (37.0-47.0) MCV 97.9 fl fl (80-100) MCH 31.3 pg pg (26-34) MCHC 32.0 g/dl g/dl (32-
[2021-07-09 21:43] VITALS: BP 180/85; PULSE 88; RESP 16; TEMP 36.1; O2SAT 100
[2021-07-09 22:02] LABS: Glucose Point of Care 190 mg/dl (65-105)
[2021-07-09] MEDS: VALSARTAN 160 MG TABLET 320 MG PO (22:07)
[2021-07-10] VITALS (18 sets, daily range): BP systolic 143–210; BP diastolic 66–98; PULSE 78–103; RESP 12–20; TEMP 36.1–36.9; O2SAT 90–100
[2021-07-10] MEDS: FUROSEMIDE INJ 40 MG/4 ML VIAL IV PUSH (00:59)
[2021-07-10] MEDS: HYDROmorphone HCL INJ (*CRX) 1 MG/ML SYR 0.5 MG IV PUSH (03:40)
[2021-07-10 06:06] LABS: Hematocrit 34.1 % (37.0-47.0); Mean Corpuscular HGB Conc 32.3 g/dl (32-36); Mean Corpuscular Hemoglobin 30.6 pg (26-34); Mean Corpuscular Volume 94.7 fl (80-100); Mean Platelet Volume 8.5 fl (7.4-10.4); Platelet Count Result 387 k/mm3 (150-375); White Blood Count 8.3 K/mm3 (4.5-10.0)
[2021-07-10 06:23] LABS: Anion Gap 8 mmol/L (8-16); Blood Urea Nitrogen 14 mg/dL (7-17); Calcium 9.3 mg/dL (8.4-10.2); Carbon Dioxide 27 mmol/L (22-30); Chloride 104 mmol/L (98-107); Estimated CRCL calculation 51 ml/min; Estimated Glomerular Filt Rate > 60; Glucose 186 mg/dL (65-110); Potassium 3.8 mmol/L (3.4-5.0); Sodium 139 mmol/L (137-145)
[2021-07-10 08:37] LABS: Glucose Point of Care 160 mg/dl (65-105)
[2021-07-10] MEDS: VALSARTAN 160 MG TABLET 320 MG PO (08:47)
--- NOTE | 2021-07-10 10:32 | WPDHPUPDATE1 ---
History and Physical Update Update Date/Time: 07/10/21 10:32 History and Physical has been reviewed, including an updated exam of the patient. There are NO changes in the patient's condition. Risks, benefits, and alternatives have been discussed and questions answered. Patient agrees to proceed with procedure.
[2021-07-10] MEDS: LACTATED RINGERS 1,000 ML 30 ML IV CONT (12:15)
[2021-07-10 12:29] LABS: Glucose Point of Care 208 mg/dl (65-105)
[2021-07-10] MEDS: fentaNYL CITRATE INJ (*CRX) 100 MCG/2 ML VIAL 25 MCG IV PUSH ×4 (12:39→12:48)
--- NOTE | 2021-07-10 12:42 | W.PM.PROC2 ---
Procedure Note - Detailed Date of Procedure 07/10/21 Pre-op Diagnosis Left Subcapital femoral neck fracture Post-op Diagnosis same Procedure Performed pinning in situ left femoral neck fracture Surgeon Alexander Lopez MD Electronics Tech Debbie Rodriguez Anesthesia general Description of Procedure the patient was identified and proper site identified. She was taken to the operating room and after general anesthetic induction and intubation, she was transferred to the [place] table position her supine in the usual manner for fixation of a left hip fracture. Care was taken to properly pad and position her torso extremities. The position of the fracture was inspected fluoroscopically in the AP and lateral views and noted to be unchanged. The left hip and thigh was prepped and draped in usual sterile fashion. 10 cc of 0.25% Marcaine epinephrine solution was infiltrated into the subcutaneous tissue in the area of the incision. A short longitudinal incision was made over the proximal aspect of the femur. Subcutaneous tissue sharply dissected down to the ITB band which was divided in line with the incision. Under fluoroscopic guidance, three pins were placed in the femoral neck and head over which 36.5 mm cannulated screws were placed and the pins removed. Overall hardware placement was assessed fluoroscopically on the AP and lateral views and noted to be satisfactory. Wound was irrigated with sterile saline. IT band was reapproximated with 0 Vicryl as was the deeper layers of the subcutaneous tissue. Skin reapproximated with three 0 Monocryl and then camilo. Sterile dressing was applied. She tolerated the procedure well. She was awakened, extubated, transferred back to bed and taken to recovery area in stable condition. There were no known intraoperative complications. Estimated blood loss was negligible. She received perioperative antibiotics. Estimated Blood Loss 10 Urine Output 2,000 Drains No Packing No Pathology none sent Complications No immediate complications Condition stable Disposition PACU
[2021-07-10] MEDS: ONDANSETRON INJ 4 MG/2 ML VIAL IV PUSH ×3 (13:09→19:01)
[2021-07-10 14:20] LABS: Glucose Point of Care 188 mg/dl (65-105)
[2021-07-10] MEDS: SODIUM CHLORIDE 0.9% IV 1,000 ML 125 ML IV CONT (14:28)
--- NOTE | 2021-07-10 14:31 | PM.IMPN ---
Progress Note: A&P Assessment and Plan (1) Fracture of hip: Code(s): S72.009A - Fracture of unspecified part of neck of unspecified femur, initial encounter for closed fracture Status: Deleted Assessment and Plan: Secondary to fall which occurred on 06/17/21. She had a collision injury with her granddaughter while playing hide and seek. Hip/pelvis x-ray showed come subcapital fracture of left femoral neck. She had left femoral neck pinning performed on 07/09/[address] Lopez. she tolerated the procedure well. appreciate orthopedic surgery consultation analgesics available as needed for pain continue PT/OT hopefully discharge home. Patient is motivated and wishes to return home Plavix on hold perioperatively. Will resume tomorrow, discussed with Dr. Lopez. she has also been started on aspirin 325 mg daily and will plan to continue this for 6 weeks. (2) Hypertension: Code(s): I10 - Essential (primary) hypertension Status: Inactive Assessment and Plan: blood pressure reviewed and has been slightly elevated above target, likely worsened by pain. Last BP 153/70 Continue home valsartan Will discontinue IV fluids issues tolerating p.o. intake. Monitor blood pressure trends and adjust medication regimen as needed (3) Diabetes: Code(s): E11.9 - Type 2 diabetes mellitus without complications Status: Inactive Assessment and Plan: A1c is 7.8. Blood sugars reviewed and have been reasonably controlled. Continue Accu-Cheks, sliding scale insulin, hypoglycemic protocol Hold home glimepiride (4) Hypothyroidism: Code(s): E03.9 - Hypothyroidism, unspecified Status: Acute Assessment and Plan: TSH is within normal limits Continue levothyroxine Subjective Date/time seen: 07/10/21 14:31 Interval history: Date of service: 07/10/2021 Hawa Larson is a 80-year-old female with history of diabetes mellitus, hypertension, CVA, and pancreatitis who is seen in follow-up for left hip fracture. She is doing fairly well today. She tolerated procedure well but is having a fair amount of nausea postoperatively. She has not eaten anything because she fears she would vomit. She has been able to tolerate sips of water. She was able to get up and use the walker with therapy this afternoon and tolerated this well. She currently rates her hip pain is 8/10. Denies dizziness, lightheadedness, weakness, shortness of breath, cough, chest pain. She has been able to urinate postoperatively and is passing gas but has not had a bowel movement. She wishes to go home after discharge. Review of Systems Review of Systems: All systems reviewed & are unremarkable except as noted in HPI and below Exam Narrative: Ms. Larson is a thin, well-appearing 80-year-old female who is sitting in a chair by the bedside. she appears comfortable and is in NARD. Neuro: awake, alert and oriented x4, speech clear, no focal neuro deficits noted HEENMT: normocephalic, atraumatic, EOMI, sclerae anicteric, moist oral mucosa Neck: supple, no lymphadenopathy Respiratory: clear to auscultation bilaterally, nonlabored breathing Cardio: regular rate, regular rhythm with S1-S2 Abdomen: nondistended, normoactive bowel sounds, soft, nontender to palpation Extremities: left hip and upper thigh tender to palpation without bruising. BLE no edema, erythema, or tenderness to palpation. Wearing Brien hose. Neurovascularly intact. DP pulses 2+ bilaterally. Able to wiggle toes bilaterally Skin: no rashes or lesions, warm and dry Psych: appropriate mood and affect, judgment and insight intact Objective Data Vital Signs Vital Signs: Vital Signs - 24 hr 07/09/21 21:43 07/10/21 00:44 07/10/21 03:30 Temperature 97.0 F L 97.1 F L Pulse Rate 88 91 103 H Respiratory Rate 16 16 Blood Pressure 180/85 H 210/98 H 174/90 H Pulse Oximetry 100 99 07/10/21 05:56 07/10/21 06:57 0
[2021-07-10] MEDS: oxyCODONE HCL (*CRX) 5 MG TAB IR PO (14:35)
[2021-07-10 17:46] LABS: Glucose Point of Care 250 mg/dl (65-105)
[2021-07-10] MEDS: INSULIN ASPART (*BKC) 100 UNITS/ML SUB-Q (18:07)
[2021-07-10] MEDS: ceFAZolin 2 GM/D5W 50 ML 2 GM/50 ML BAG IVPB (18:07)
[2021-07-10] MEDS: GABAPENTIN 100 MG CAPSULE PO (18:08)
[2021-07-10] MEDS: ACETAMINOPHEN 325 MG TABLET 650 MG PO (18:59)
[2021-07-10] MEDS: FAMOTIDINE 20 MG TABLET PO (20:48)
[2021-07-10] MEDS: hydrOXYzine pamoate 25 MG CAPSULE 50 MG PO (20:51)
[2021-07-10 20:55] LABS: Glucose Point of Care 227 mg/dl (65-105)
[2021-07-10] MEDS: METOCLOPRAMIDE HCL INJ 10 MG/2 ML VIAL IV PUSH (21:34)
[2021-07-11 00:38] VITALS: BP 149/68; PULSE 100; RESP 16; TEMP 36.8; O2SAT 100
[2021-07-11] MEDS: oxyCODONE HCL (*CRX) 5 MG TAB IR PO ×2 (01:33→05:42)
[2021-07-11] MEDS: ONDANSETRON INJ 4 MG/2 ML VIAL IV PUSH (01:34)
[2021-07-11] MEDS: ceFAZolin 2 GM/D5W 50 ML 2 GM/50 ML BAG IVPB ×2 (02:47→10:55)
[2021-07-11] MEDS: hydrOXYzine pamoate 25 MG CAPSULE 50 MG PO ×2 (02:48→08:47)
[2021-07-11 03:30] VITALS: BP 150/72; PULSE 82; RESP 18; TEMP 36.4; O2SAT 100
[2021-07-11 06:52] LABS: Basophils Percent Auto 0.2 % (0.2-1.2); Eosinophils Absolute Auto 0.1 K/mm3 (0-0.3); Eosinophils Percent Auto 0.5 % (0-4.4); Hematocrit 30.8 % (37.0-47.0); Immature Granulocyte Absolute 0.04 K/mm3 (0.00-0.031); Immature Granulocyte Percent A 0.3 % (0-0.5); Lymphocytes Absolute Auto 1.57 K/mm3 (0.9-3.2); Lymphocytes Percent Auto 12.8 % (18.3-44.2); Mean Corpuscular HGB Conc 32.5 g/dl (32-36); Mean Corpuscular Hemoglobin 30.9 pg (26-34); Mean Corpuscular Volume 95.1 fl (80-100); Mean Platelet Volume 9.1 fl (7.4-10.4); Monocytes Absolute Auto 1.6 K/mm3 (0.1-0.6); Monocytes Percent Auto 12.7 % (2.6-8.5); Neutrophils Absolute Auto 9.1 K/mm3 (1.3-6.7); Neutrophils Percent Auto 73.5 % (45.5-73.1); Platelet Count Result 364 k/mm3 (150-375); Red Blood Count 3.24 M/mm3 (4.2-5.4); Red Cell Distribution Width 12.9 % (11.5-14.5); White Blood Count 12.3 K/mm3 (4.5-10.0)
[2021-07-11 07:02] LABS: Anion Gap 7 mmol/L (8-16); Blood Urea Nitrogen 14 mg/dL (7-17); Calcium 8.8 mg/dL (8.4-10.2); Carbon Dioxide 27 mmol/L (22-30); Chloride 99 mmol/L (98-107); Estimated CRCL calculation 59 ml/min; Estimated Glomerular Filt Rate > 60; Glucose 180 mg/dL (65-110); Potassium 3.8 mmol/L (3.4-5.0); Sodium 133 mmol/L (137-145)
[2021-07-11 07:30] VITALS: BP 136/52; PULSE 85; RESP 16; TEMP 35.9; O2SAT 100
[2021-07-11 08:42] LABS: Glucose Point of Care 173 mg/dl (65-105)
[2021-07-11] MEDS: VALSARTAN 160 MG TABLET 320 MG PO (08:47)
[2021-07-11] MEDS: GABAPENTIN 100 MG CAPSULE PO (08:48)
[2021-07-11] MEDS: CLOPIDOGREL BISULFATE 75 MG TABLET PO (08:48)
[2021-07-11] MEDS: ASPIRIN 325 MG ENTERIC TABLET PO (08:48)
[2021-07-11] MEDS: DOCUSATE SODIUM 100 MG CAPSULE PO (08:48)
[2021-07-11] MEDS: FAMOTIDINE 20 MG TABLET PO (08:48)
--- NOTE | 2021-07-11 09:06 | PM.PNORT ---
Progress Note: A&P Assessment and Plan (1) Subcapital fracture of neck of left femur: Qualifiers: Encounter type: initial encounter Fracture type: closed Qualified Code(s): S72.012A - Unspecified intracapsular fracture of left femur, initial encounter for closed fracture Code(s): S72.012A - Unspecified intracapsular fracture of left femur, initial encounter for closed fracture Status: Acute Assessment and Plan: 72-year-old female postop day one left hip pinning in situ for subacute left subcapital femoral neck fracture. Overall she is doing well. She is completely lucid and has a firm grasp on what the issues are. She would like to be able to be discharged home which I think could be carried out later today. I do need to see her in approximately two weeks for staple removal. Instructions were reviewed with her in detail and also placed into the chart. Plan will be for her to use scheduled Tylenol for pain with tramadol for breakthrough pain. Zofran prescription provided for nausea. I would like for her to try a coated baby aspirin to take along with the Plavix which I want her to use daily for the next six weeks before going back to the every other day. Should there be any questions prior to follow-up, she was instructed to contact my office. Subjective Subjective Date/Time Seen: 07/11/21 09:06 Post Op day: 1 Principal diagnosis: subacute left subcapital femoral neck fracture Interval history: 72-year-old female who underwent pinning in situ of a subacute left subcapital femoral neck fracture yesterday. She did experience some nausea yesterday but it has improved today. Her main complaint is soreness at the surgical site in her left proximal thigh. Exam Const: General: cooperative, no acute distress and alert Nutritional Appearance: other Orientation/consciousness: patient oriented x3 Limitations: no limitations HENMT: Head: normal to inspection Ears: hearing grossly normal bilaterally Face and sinus: face symmetric Mouth: Yes moist mucous membranes Teeth and gingiva: fair dentition Eyes: Alignment and Position: alignment normal and position normal Neck: Neck: normal visual inspection Resp: Effort & Inspection: normal respiratory effort and able to speak in complete sentences GI: Inspection: other ( Nondistended) Skin: General skin exam: normal color Rashes: no rashes Neuro: General: patient oriented x3 Cognition (Neuro): normal cognition Speech: normal speech Gait exam (Neuro): Other gait observations present Extrem: General: normal to inspection and other Other: Exam of the left thigh shows dry dressing. Minimal swelling at the surgical site. Some soft tissue tenderness appreciated. Grossly, motor and sensory function intact left lower extremity but exam limited secondary to discomfort. Calves negative. Psych: Appearance: grossly normal Mental Status: mental status grossly normal Objective Data Vital Signs Vital Signs: Vital Signs - 24 hr 07/10/21 09:27 07/10/21 12:15 07/10/21 12:30 Temperature 97.3 F L 97 F L Pulse Rate 80 85 84 Respiratory Rate 20 12 20 Blood Pressure 164/68 H 152/66 H 151/69 H Pulse Oximetry 98 100 99 07/10/21 12:45 07/10/21 13:00 07/10/21 13:15 Temperature 98.2 F Pulse Rate 80 80 79 Respiratory Rate 18 14 14 Blood Pressure 165/74 H 154/68 H 156/72 H Pulse Oximetry 98 93 94 07/10/21 13:30 07/10/21 13:43 07/10/21 13:45 Temperature 97.6 F Pulse Rate 83 85 96 Respiratory Rate 14 16 16 Blood Pressure 157/68 H 153/70 H 171/79 H Pulse Oximetry 92 96 90 07/10/21 14:00 07/10/21 14:30 07/10/21 15:30 Temperature 97.6 F 97.4 F L 97.9 F Pulse Rate 94 90 83 Respiratory Rate 16 18 20 Blood Pressure 169/81 H 164/81 H 170/74 H Pulse Oximetry 94 94 95 07/10/21 19:30 07/11/21 00:38 07/11/21 03:30 Temperature 98.5 F 98.3 F 97.6 F Pulse Rate 78 100 82 Respiratory Rate 16 16 18 Blood Pressure 143/73 H 149/68 H 150/72 H Pulse
--- NOTE | 2021-07-11 10:24 | WPDANESPN ---
Anes - Prog Note Post-Op Date/Time: 07/11/21 10:24 Cardiovascular status: normal Respiratory status: normal Airway patency: baseline Mental status: baseline Post-Op hydration status: normal Vital Signs: Last Vital Signs Temp 35.9 C L 07/11/21 07:30 Pulse 85 07/11/21 07:30 Resp 16 07/11/21 07:30 BP 136/52 L 07/11/21 07:30 Pulse Ox 100 07/11/21 07:30 Pain Score (VAS): 3 I/O: Intake & Output 07/10/21 07/11/21 07/11/21 23:59 07:59 15:59 Intake Total 50 550 240 Output Total 300 300 Balance -250 250 240 Laboratory Tests 07/11/21 05:39 07/11/21 05:39 07/10/21 07/10/21 07/10/21 12:26 14:18 17:42 WBC RBC Hgb Hct MCV MCH MCHC RDW Plt Count MPV Immature Gran % (Auto) Neut % (Auto) Lymph % (Auto) [place] % (Auto) Eos % (Auto) Baso % (Auto) Lymph # (Auto) [place] # (Auto) Eos # (Auto) Baso # (Auto) Abs Immat Gran (auto) Absolute Neuts (auto) Absolute Nucleated RBC Nucleated RBC % Sodium Potassium Chloride Carbon Dioxide Anion Gap BUN Creatinine Estim Creat Clear Calc Estimated GFR Glucose POC Capillary Glucose 208 H 188 H 250 H Calcium 07/10/21 07/11/21 07/11/21 20:50 05:39 05:39 WBC 12.3 H RBC 3.24 L Hgb 10.0 L Hct 30.8 L MCV 95.1 MCH 30.9 MCHC 32.5 RDW 12.9 Plt Count 364 MPV 9.1 Immature Gran % (Auto) 0.3 Neut % (Auto) 73.5 H Lymph % (Auto) 12.8 L [place] % (Auto) 12.7 H Eos % (Auto) 0.5 Baso % (Auto) 0.2 Lymph # (Auto) 1.57 [place] # (Auto) 1.6 H Eos # (Auto) 0.1 Baso # (Auto) 0.0 Abs Immat Gran (auto) 0.04 H Absolute Neuts (auto) 9.1 H Absolute Nucleated RBC 0.0 Nucleated RBC % 0.0 Sodium 133 L Potassium 3.8 Chloride 99 Carbon Dioxide 27 Anion Gap 7 L BUN 14 Creatinine 0.60 L Estim Creat Clear Calc 59 Estimated GFR > 60 Glucose 180 H POC Capillary Glucose 227 H Calcium 8.8 07/11/21 07:26 WBC RBC Hgb Hct MCV MCH MCHC RDW Plt Count MPV Immature Gran % (Auto) Neut % (Auto) Lymph % (Auto) [place] % (Auto) Eos % (Auto) Baso % (Auto) Lymph # (Auto) [place] # (Auto) Eos # (Auto) Baso # (Auto) Abs Immat Gran (auto) Absolute Neuts (auto) Absolute Nucleated RBC Nucleated RBC % Sodium Potassium Chloride Carbon Dioxide Anion Gap BUN Creatinine Estim Creat Clear Calc Estimated GFR Glucose POC Capillary Glucose 173 H Calcium Post-procedural complaints: none Patient Feedback: Patient satisfied with anesthetic care.
--- NOTE | 2021-07-11 11:55 | PM.DS ---
DS: Admitting Diagnosis Admitting Diagnosis Left hip fracture DS: Discharge Diagnosis Discharge Diagnosis (1) Fracture of hip: Qualifiers: Encounter type: initial encounter Laterality: left Code(s): S72.009A - Fracture of unspecified part of neck of unspecified femur, initial encounter for closed fracture Status: Deleted Assessment and Plan: Secondary to fall which occurred on 06/17/21. She had a collision injury with her granddaughter while playing hide and seek. Hip/pelvis x-ray showed subcapital fracture of left femoral neck. She had left femoral neck pinning performed on 07/09/[address] Lopez. she tolerated the procedure well. She was evaluated by PT/OT and was doing well and was able to be discharged home. She lives with her who is able to a sister if needed. She will take aspirin and Plavix for DVT prophylaxis per Orthopedic surgery. She will follow-up with Dr. Lopez as an outpatient. (2) Hypertension: Code(s): I10 - Essential (primary) hypertension Status: Inactive Assessment and Plan: Blood pressure reviewed daily. BP was slightly elevated, likely due to pain but did demonstrate improvement throughout admission. Continue with home valsartan. (3) Diabetes: Code(s): E11.9 - Type 2 diabetes mellitus without complications Status: Inactive Assessment and Plan: A1c is 7.8. Blood sugars monitored with Accu-Cheks ACHS and sliding scale insulin was initiated. Home glimepiride held during admission but will be continued as an outpatient. (4) Hypothyroidism: Code(s): E03.9 - Hypothyroidism, unspecified Status: Acute Assessment and Plan: TSH is within normal limits. Continue levothyroxine DS: Summary Hospital Course Hospital Course: Date of admission: 07/08/2021 Date of discharge: 07/11/2021 Hawa Larson is a 80-year-old female with history of diabetes mellitus, hypertension, CVA, and pancreatitis who presented to the emergency department on 07/08/2021 after sustaining a left hip fracture during a fall on 06/17/2021. On presentation to the emergency department, she was mildly tachycardic and her BP was elevated with additional vital signs stable, platelets 412, additional CBC and BMP unremarkable, CXR with no acute cardiopulmonary disease, and hip/pelvis x-ray showed subcapital fracture of left femoral neck. She was admitted to the hospitalist service for further evaluation and management and was seen in consultation by Orthopedic surgery. She underwent surgical repair on 07/10/2021. She tolerated the procedure well and progressed well with PT/OT. She will continue to recover at home and will follow-up with Orthopedic surgery as an outpatient in 2 weeks. Given her overall improvement, she was determined to no longer require inpatient care and was felt to be stable for discharge. We discussed worrisome signs and symptoms for which to return and she was educated on her medications. She was discharged in hemodynamically stable condition on 07/11/2021. Status at Discharge Functional status at discharge: uses cane/walker Overall status at discharge: patient is progressing back to baseline Time Spent with Patient Time attestation: Total time spent providing and/or coordinating discharge services: 45 minutes Time spent: Greater than 30 minutes Exam Narrative: Ms. Larson is a thin, well-appearing 80-year-old female who is sitting in a chair by the bedside. she appears comfortable and is in NARD. Neuro: awake, alert and oriented x4, speech clear, no focal neuro deficits noted HEENMT: normocephalic, atraumatic, EOMI, sclerae anicteric, moist oral mucosa Neck: supple, no lymphadenopathy Respiratory: clear to auscultation bilaterally, nonlabored breathing Cardio: regular rate, regular rhythm with S1-S2 Abdomen: nondistended, normoactive bowel sounds, soft, nontender to palpation Extremities: left hip nontender to
[2021-07-11 12:33] LABS: Glucose Point of Care 213 mg/dl (65-105)
--- NOTE | 2021-07-11 13:08 | WPDCN ---
Assessment and Plan Assessment and plan (1) Subcapital fracture of neck of left femur: Qualifiers: Encounter type: initial encounter Fracture type: closed Qualified Code(s): S72.012A - Unspecified intracapsular fracture of left femur, initial encounter for closed fracture Code(s): S72.012A - Unspecified intracapsular fracture of left femur, initial encounter for closed fracture Status: Acute (2) Hypothyroidism: Code(s): E03.9 - Hypothyroidism, unspecified Status: Acute (3) Hypercholesterolemia: Code(s): E78.00 - Pure hypercholesterolemia, unspecified Status: Acute (4) Diabetes: Code(s): E11.9 - Type 2 diabetes mellitus without complications Status: Acute Additional Plan Patient is seen with physical therapy. After a lengthy discussion with the patient, she feels comfortable going directly home.. Durable medical equipment was discussed with possible shower chair, 2 wheel walker,. Patient will talk with case management regarding home health care but at this dictation patient was declining home health care. Overall prognosis is good. Follow up should be with family doctor and Dr. riggs. Thank you for allowing me to participate in the care of your patient HPI Data of Consult Date/Time: 07/11/21 13:08 Requesting Physician: Kassie Sandoval PA-C Primary Care Provider: PHYSICIAN NOT ON STAFF Consult Narrative Narrative: Hawa Larson is a 80 year old female Who fell on June 17, 2021 while playing [employer] with her granddaughter. According to the patient she had x-rays performed but were not diagnostic of a femur fracture. Eventually an x-ray revealed a femur fracture. Patient went to [facility] but after waiting 5 hours in the emergency room, her drove her to Dr. Lopez's office. Dr. Lopez referred the patient to [facility] and then patient had a left hip screw procedure performed on 07/09/[address] Lopez. Postoperatively patient did well. [facility] was consulted as well as myself. Patient wishes to return home without acute rehab. Patient's grandson is a physical therapist and patient feels confident of returning home safely. Review of Systems Review of Systems: All systems reviewed & are unremarkable except as noted in HPI and below PMFSH Past Medical History Medical History (Updated 07/11/21 @ 13:17 by Aura Middleton DO) CVA (cerebral vascular accident) Diabetes Diverticulitis Hypercholesterolemia Hypertension Hypothyroidism Pancreatitis Surgical History Surgical History (Updated 07/11/21 @ 09:05 by Alexander Lopez MD) History of appendectomy History of arthroscopy of right knee History of thyroidectomy History of tonsillectomy Subcapital fracture of neck of left femur pinning in situ July 10, 2021 Social History Social History Smoking status: Never smoker Alcohol intake: never Substance use: never Gender identity (if verbalized by the patient): Female Spiritual care concerns: No Meds Home Medications and Allergies Home Medications Medication Instructions Recorded Confirmed Type clopidogrel 75 mg PO DAILY 05/09/20 07/10/21 History gabapentin 100 mg PO BID 05/09/20 07/09/21 History glimepiride 1 mg PO QPM 05/09/20 07/09/21 History glimepiride 2 mg PO DAILY 05/09/20 07/09/21 History levothyroxine [Synthroid] 125 mcg PO DAILY 05/09/20 07/09/21 History valsartan 320 mg PO DAILY 05/09/20 07/09/21 History All Day Allergy (cetirizine) 10 mg PO DAILY 07/09/21 07/09/21 History diclofenac epolamine 1 patch TRANSDERMAL BID PRN 07/09/21 07/09/21 History ondansetron 4 mg PO Q6H #10 tablet 07/11/21 Rx tramadol 50 mg PO Q6H PRN #14 tablet 07/11/21 Rx Allergies Allergy/AdvReac Type Severity Reaction Status Date / Time codeine AdvReac Intermediate SEVERE Verified 05/09/20 14:20 NAUSEA/VOMITING NSAIDS (Non-Steroidal AdvReac I
--- OUTSIDE RECORDS SUMMARY | 2021-07-16 10:27 | XMS_ITS ---
:1940 Author Care Team Providers Name Role Phone DR. SNEHA GALLEGOS Primary Care Provider [phone] DR. SNEHA GALLEGOS Referring Provider [phone] Allergies Code Code System Name Reaction Severity Status Onset 2670 RxNorm Codeine ? ? Active ? Nsaids ? ? Active ? (Non-steroida l Anti-inflamma tory Drug) Sulfa ? ? Active ? (Sulfonamide Antibiotics) 8007 RxNorm Talwin ? ? Active ? Medications Name Status Start Date Stop Date ? ? amitriptyline 25 mg tablet Completed ? 06/05 TAKE 1 TABLET BY MOUTH DAILY AT BEDTIME CAN INCREASE TO 50MG NIGHTLY IF NOT IMPROVING azithromycin 250 mg tablet Unknown ? Not a vailable Bystolic 10 mg tablet Active ? Not availa ble TAKE ONE TABLET BY MOUTH EVERY MORNING Bystolic 5 mg tablet Completed ? 08/20/2019 TAKE 1 TABLET BY MOUTH EVERY DAY carisoprodol 350 mg tablet Active ? Not a vailable TAKE 1 AND 1/2 TABLETS ONCE DAILY NEEDED chlorthalidone 25 mg tablet Completed ? 08/07 TAKE ONE-HALF TABLET BY MOUTH ONCE A DAY Ciprodex 0.3 %-0.1 % ear Unknown ? Not nirmal ilable drops,suspension ciprofloxacin 500 mg tablet Completed ? 05/09 TAKE 1 TABLET BY MOUTH 2 TIMES DAILY
--- OUTSIDE RECORDS SUMMARY | 2021-07-16 10:28 | XMS_ITS ---
:1940 Author Care Team Providers Name Role Phone DR. SNEHA GALLEGOS Primary Care Provider [phone] DR. SNEHA GALLEGOS Referring Provider [phone] SNEHA GALLEGOS Primary Care Provider [phone] Allergies Code Code System Name Reaction Severity Status Onset 1917 RxNorm Codeine Vomiting ? Active ? Nsaids Nausea ? Active ? (Non-steroida l Anti-inflamma tory Drug) Medications Name Status Start Date Stop Date ? ? amitriptyline 25 mg tablet Active ? Not a vailable TAKE 1 TABLET BY MOUTH DAILY AT BEDTIME CAN INCREASE TO 50MG NIGHTLY IF NOT IMPROVING amitriptyline hcl 25 mg tabs Active ? Not available azelastine hcl 0.1 % soln Active ? Not av ailable Bystolic 10 mg tablet Active ? Not availa ble bystolic 10 mg tabs Active ? Not availabl e Bystolic 5 mg tablet Active ? Not availab le TAKE 1 TABLET BY MOUTH EVERY DAY bystolic 5 mg tabs Active ? Not available carisoprodol 350 mg tablet Active ? Not a vailable carisoprodol 350 mg tabs Active ? Not nirmal ilable chlorthalidone 25 mg tablet Active ? Not available TAKE ONE-HALF TABLET BY MOUTH ONCE A DAY chlorthalidone 25 mg tabs Active ? Not av ailable ciprofloxacin 500 mg tablet Active ? Not available TAKE 1 TABLET BY MOUTH 2 TIMES DAILY FOR 3 DAYS. ciprofloxacin hcl 500 mg tabs Active ? No t available clopidogrel 75 m
== END 2021-07-11 13:21 | disposition home or self-care (01) | DRG 482 ==
LOC: ANHED 22:53 → ANH2MED 07-09 00:57
PROVIDERS: Family Medicine; Orthopaedic Surgery; Admitting Provider Internal Medicine; Emergency Provider Emergency Medicine; Visit Provider Physician Assistant
PROC: 0QH734Z Insertion of Internal Fixation Device into Left Upper Femur, Percutaneous Approach (ICD-10-PCS; principal; 2021-07-10 09:30)
DX: S72.012A Unspecified intracapsular fracture of left femur, initial encounter for closed fracture (principal); W03.XXXA Other fall on same level due to collision with another person, initial encounter; Y93.83 Activity, rough housing and horseplay; I10 Essential (primary) hypertension; E11.9 Type 2 diabetes mellitus without complications; E03.9 Hypothyroidism, unspecified; E78.00 Pure hypercholesterolemia, unspecified; Z86.73 Personal history of transient ischemic attack (TIA), and cerebral infarction without residual deficits; Z79.02 Long term (current) use of antithrombotics/antiplatelets
CPT/HCPCS: 36415; 71045; 73502; 80048; 80053; 82948; 83036; 84443; 85025; 85027; 85610; 85730; 93005; 96374; 97110; 97116; 97161; 97165; 97530; 99285; A9270; C1713; J0131; J0690; J1100; J1170; J1815; J1940; J2270; J2405; J2704; J2765; J3010; J7030; J7120

== ENCOUNTER 2021-09-18 09:46 | Emergency (ER) | payer MEDICARE, SELFPAY ==
--- NOTE | ~2021-09-18 | CT_ITS ---
EXAMINATION: CT abdomen pelvis w con DATE: 09/18/2021 12:40 INDICATION: Low abdominal pain. Nausea and vomiting. TECHNIQUE: Computed tomography (CT) of the abdomen and pelvis was performed with 100 mL Omnipaque 350 intravenous contrast. Automated exposure control and iterative reconstruction technique were employe d. The dose-length product was 256.63 mGy-cm. COMPARISON: CT abdomen and pelvis 05/26/2019, 01/28/2014 FINDINGS: The visualized portions of the lung bases demonstrate patchy groundglass opacities and craz y paving in all lobes. A calcified left lung nodule is consistent with old granulomatous disease. No pleural effusion. The heart size is normal. There are coronary artery calcifications. No pericardial effusion. Dependent material in the gallbladder may be sludge or stones. The liver, spleen, pancreas, adrenal glands, and right kidney are normal. There is cortical thinning of the kidneys. There are cy sts in left kidney measuring up to 16 mm. There is a 7 mm hemorrhagic cyst in left kidney. There is d iverticulosis of the colon without evidence of diverticulitis. There are no dilated loops of bowel. T he appendix is normal. There are no pathologically enlarged lymph nodes. There is no free intraperito loraine fluid. There is a fracture of left femoral neck with fixation with 3 screws. There is severe lum bar spondylosis. IMPRESSION: 1. Diffuse lung disease, consistent with mild pulmonary edema versus atypical pneumonia such as COVID -19 pneumonia. Reviewed, dictated and finalized at location A. GENCY MANAGEMENT SPECIALIST IMPRESSION: 1. Diffuse lung disease, consistent with mild pulmonary edema versus atypical p neumonia such as COVID-19 pneumonia.
--- NOTE | ~2021-09-18 | XR_ITS ---
EXAMINATION: XR chest 1V portable EXAM DATE: 09/18/2021 15:24 INDICATION: Possible pneumonia, epigastric pain, nausea, symptoms one week. TECHNIQUE: Portable AP frontal chest x-ray was obtained. Comparison is made to prior examination from 07/08/2021. FINDINGS: Multifocal ill-defined small to moderate amount of right-sided airspace disease which is ne w compared to prior study. Probably acute infectious process/pneumonia given history provided. No def inite left-sided airspace disease. No pneumothorax or pleural effusion. Cardiomediastinal silhouette is normal. There are mild bony degenerative changes. IMPRESSION: Small to moderate patchy ill-defined right-sided acute airspace disease probably pneumoni a. Reviewed, dictated and finalized at location A. STANT [employer] DEFENDER IMPRESSION: Small to moderate patchy ill-defined right-sided acute airspace dis ease probably pneumonia.
--- NOTE | ~2021-09-18 | US_ITS ---
EXAMINATION: US right upper quadrant DATE: 09/18/2021 12:55 INDICATION: Right upper quadrant pain TECHNIQUE: Multiple grayscale and Doppler ultrasound images of the abdomen were obtained. COMPARISON: CT from today FINDINGS: The head, body, and tail of the pancreas are normal. The liver is normal with normal echoge nicity and echotexture. No surface nodularity. Normal hepatopetal flow in the main portal vein. Sludg e in the nondistended gallbladder. There is no gallbladder wall thickening or pericholecystic fluid. The normal common bile duct measures 3 mm. There was no sonographic Wagner sign. IMPRESSION: 1. No sonographic correlate for the patient's symptoms. Reviewed, dictated and finalized at location B. GER TRANSFER
[2021-09-18 10:14] VITALS: BP 120/101; PULSE 79; RESP 18; TEMP 36.8; O2SAT 98
--- NOTE | 2021-09-18 10:43 | ED.GENADULT ---
HPI - General Adult General Chief complaint: Abdominal Pain Stated complaint: abdominal pain Time Seen by Provider: 09/18/21 10:42 History of Present Illness HPI narrative: Patient is a 81-year-old female with past medical history that includes diabetes, HTN who comes to the ED today complaining of abdominal pain for the last 1 week. Pain is primarily in the epigastric region and is fairly constant. Admits to nausea without vomiting. She admits to diarrhea but she says this consist of 1-2 bowel movements a day and she took an [id number] antidiarrheal medicine for this. She denies any fevers or urinary symptoms. Admits to previous history of similar symptoms twice before which was due to pancreatitis that she says was triggered after an ERCP, this last happened about 3 years ago. Related Data Home Medications Medication Instructions Recorded Confirmed clopidogrel 75 mg PO DAILY 05/09/20 08/19/21 gabapentin 100 mg PO BID 05/09/20 08/19/21 glimepiride 1 mg PO QPM 05/09/20 08/19/21 glimepiride 2 mg PO DAILY 05/09/20 08/19/21 levothyroxine [Synthroid] 125 mcg PO DAILY 05/09/20 08/19/21 valsartan 320 mg PO DAILY 05/09/20 08/19/21 All Day Allergy (cetirizine) 10 mg PO DAILY 07/09/21 08/19/21 diclofenac epolamine 1 patch TRANSDERMAL BID PRN 07/09/21 08/19/21 Allergies Allergy/AdvReac Type Severity Reaction Status Date / Time codeine AdvReac Intermediate SEVERE Verified 09/18/21 10:17 NAUSEA/VOMITING NSAIDS (Non-Steroidal AdvReac Intermediate NAUSEA AND Verified 09/18/21 10:17 Anti-Inflamma GASTRIC PAIN PENTAZOCINE LACTATE AdvReac Severe UNCONCIOUS Uncoded 09/18/21 10:17 FOR 2 DAYS MEPERIDINE HCL AdvReac Mild Nausea Uncoded 09/18/21 10:17 Review of Systems Constitutional: Constitutional: Reports as per HPI, Denies fever(s), Denies night sweats and Denies weakness Cardiovascular: Cardiovascular: Denies chest pain, Denies edema, Denies leg edema, Denies dyspnea and Denies orthopnea Respiratory: Respiratory: Denies cough and Denies dyspnea Gastrointestinal: Gastrointestinal: Reports abdominal pain, Denies constipation, Denies diarrhea, Reports nausea and Denies vomiting Musculoskeletal: Musculoskeletal: Denies abnormal gait, Denies back pain, Denies numbness and Denies tingling Neurologic: Denies Abnormal speech present, Denies abnormal gait, Denies numbness, Denies tingling and Denies weakness Psychiatric: Psychiatric: Denies homicidal ideation and Denies suicidal ideation ON LICENSE OF [facility] Past Medical History Medical History CVA (cerebral vascular accident) Diabetes Diverticulitis Hypercholesterolemia Hypertension Hypothyroidism Pancreatitis Surgical History Surgical History History of appendectomy History of arthroscopy of right knee History of thyroidectomy History of tonsillectomy Subcapital fracture of neck of left femur pinning in situ July 10, 2021 Social History Social History Smoking status: Never smoker Alcohol intake: never Substance use: never Gender identity (if verbalized by the patient): Female Spiritual care concerns: No Exam Const: General: cooperative, healthy appearing, comfortable, no acute distress, well developed, alert, awake and Physically active Orientation/consciousness: patient oriented x3 HENMT: Head: normal to inspection, normocephalic and atraumatic Ears: external ears normal General nose exam: Normal external nose present Mouth: Yes dry mucous membranes Eyes: Pupils: Equal, round and reactive pupils present EOM: EOMs intact bilaterally Neck: Neck: normal visual inspection Chest: Chest palpation & inspection: normal inspection of the chest and no tenderness Resp: Effort & Inspection: normal respiratory effort and able to speak in complete sentences Auscultation: clear to auscultati
[2021-09-18 10:48] VITALS: BP 141/73
--- NOTE | 2021-09-18 11:40 | ECG_ITS ---
Measurements Intervals [place] Rate: 70 P: 52 MO: 157 QRS: 15 QRSD: 102 T: 30 QT: 378 QTc: 410 Interpretive Statements SINUS RHYTHM DELAYED PRECORDIAL R/S TRANSITION CONSIDER INFERIOR INFARCT, AGE INDETERMINATE BASELINE ARTIFACT- V4-V5 ABNORMAL ECG Electronically Signed On 09-18-2021 15:25:30 STONE CUTTER by Panchito Garcia D.O.
[2021-09-18] MEDS: FAMOTIDINE 20 MG/2 ML VIAL IV PUSH (11:48)
[2021-09-18] MEDS: ONDANSETRON INJ 4 MG/2 ML VIAL IV PUSH ×2 (11:48→14:13)
[2021-09-18 12:08] LABS: Basophils Percent Auto 0.4 % (0.2-1.2); Hematocrit 34.4 % (37.0-47.0); Hemoglobin 11.8 g/dL (12.0-15.0); Immature Granulocyte Absolute 0.01 K/mm3 (0.00-0.031); Immature Granulocyte Percent A 0.2 % (0-0.5); Lymphocytes Absolute Auto 0.79 K/mm3 (0.9-3.2); Lymphocytes Percent Auto 15.5 % (18.3-44.2); Mean Corpuscular HGB Conc 34.3 g/dl (32-36); Mean Corpuscular Hemoglobin 31.6 pg (26-34); Mean Corpuscular Volume 92.2 fl (80-100); Mean Platelet Volume 9.5 fl (7.4-10.4); Monocytes Absolute Auto 0.6 K/mm3 (0.1-0.6); Monocytes Percent Auto 11.9 % (2.6-8.5); Neutrophils Absolute Auto 3.7 K/mm3 (1.3-6.7); Platelet Count Result 228 k/mm3 (150-375); Red Blood Count 3.73 M/mm3 (4.2-5.4); Red Cell Distribution Width 12.2 % (11.5-14.5); White Blood Count 5.1 K/mm3 (4.5-10.0)
[2021-09-18 12:14] LABS: Add Urine Microscopic? YES; Appearance Urine Cloudy (Clear); Bacteria Urine Trace /hpf; Bilirubin Urine Negative (Negative); Blood Urine Negative (Negative); Color Urine Yellow (Yellow); Glucose Urine UA 1+ mg/dL (Negative); Hyaline Casts Urine 50+ /lpf; Ketones Urine Negative (Negative); Leukocyte Esterase Ur Negative LEU/UL (Negative); Mucus Urine Few /lpf; Nitrate Urine Negative (Negative); Protein Urine 2+ mg/dL (Negative); RBC Urine 0-2 /hpf (0-2); Specific Grav Ur 1.015 (1.001-1.035); Squamous Epithelial Cell Urine Occasional /hpf (Few); Urobilinogen Urine Negative mg/dL (<2.0)
[2021-09-18] MEDS: HYDROmorphone HCL INJ (*CRX) 1 MG/ML SYR 0.5 MG IV PUSH (12:16)
[2021-09-18 12:20] LABS: Alanine Aminotransferase 19 U/L (4-35); Albumin Level 4.3 g/dL (3.5-5.1); Alkaline Phosphatase 117 U/L (38-126); Anion Gap 11 mmol/L (8-16); Aspartate Amino Transferase 35 U/L (14-36); Bilirubin,Total 0.3 mg/dL (0.2-1.3); Blood Urea Nitrogen 14 mg/dL (7-17); Calcium 8.7 mg/dL (8.4-10.2); Carbon Dioxide 24 mmol/L (22-30); Chloride 94 mmol/L (98-107); Estimated CRCL calculation 51 ml/min; Estimated Glomerular Filt Rate > 60; Glucose 267 mg/dL (65-110); Lipase 54 U/L (23-300); Potassium 4.3 mmol/L (3.4-5.0); Sodium 129 mmol/L (137-145)
[2021-09-18 12:32] LABS: Troponin I < 0.012 ng/mL (0.000-0.034)
[2021-09-18 13:02] VITALS: BP 140/63; PULSE 69; RESP 18; O2SAT 99
[2021-09-18 15:00] VITALS: BP 139/60; PULSE 60; RESP 19; O2SAT 99
[2021-09-18] MEDS: LACTATED RINGERS 1,000 ML 999 ML IV CONT (15:41)
[2021-09-18 15:46] LABS: NT Pro B Type Natriuretic Pept 639 pg/mL (5-100)
[2021-09-18] MEDS: BELLADONNA ALK/PHENOB ELIX 10 ML, MAG HYDROX/ALUMINUM HYD/SIMETH 30 ML, LIDOCAINE HCL 2... PO (16:53)
[2021-09-19 17:30] LABS: SARS-CoV-2 RNA PCR Positive
== END 2021-09-18 17:13 | disposition home or self-care (01) ==
PROVIDERS: Physician Assistant Medical; Emergency Provider Emergency Medicine; PCP Internal Medicine
DX: U07.1 COVID-19 (principal); J12.82 Pneumonia due to coronavirus disease 2019; E11.9 Type 2 diabetes mellitus without complications; I10 Essential (primary) hypertension; E78.00 Pure hypercholesterolemia, unspecified; E03.9 Hypothyroidism, unspecified; Z86.73 Personal history of transient ischemic attack (TIA), and cerebral infarction without residual deficits; Z87.19 Personal history of other diseases of the digestive system
CPT/HCPCS: 36415; 71045; 74177; 76705; 80053; 81001; 83690; 83880; 84484; 85025; 87086; 87088; 93005; 96361; 96374; 96375; 96376; 99284; A9270; C9803; J1170; J2405; J7120; Q9967; U0003; U0005

== ENCOUNTER 2021-09-22 14:47 | Emergency (ER) | payer MEDICARE, SELFPAY ==
--- NOTE | ~2021-09-22 | XR_ITS ---
EXAMINATION: XR chest 2V EXAM DATE: 09/22/2021 16:01 INDICATION: Shortness of breath/chest pain radiating to back. TECHNIQUE: Frontal and lateral projections of the chest obtained and reviewed. Comparison is made to prior examination from 09/18/2021. FINDINGS: Again there is right-sided mid and lower lung zone and left basilar peripheral distributio n airspace disease. Given appearance and community prevalence, COVID pneumonia should be considered. Accounting for differences in technique, there is no significant interval change. There is no pneumot horax suspected. There are no pleural effusions. Cardiomediastinal silhouette is normal. There are no osseous abnormalities identified. IMPRESSION: Moderate right, small left-sided pneumonia unchanged. Reviewed, dictated and finalized at location B. ERY SHOPPER
--- NOTE | 2021-09-22 15:15 | ECG_ITS ---
Measurements Intervals [place] Rate: 70 P: 46 MI: 143 QRS: 40 QRSD: 90 T: 46 QT: 366 QTc: 397 Interpretive Statements SINUS RHYTHM NORMAL ECG Electronically Signed On 09-22-2021 15:27:02 CARE ATTENDANT by Panchito Garcia D.O.
[2021-09-22 15:16] VITALS: BP 146/61; PULSE 73; RESP 18; TEMP 36.6; O2SAT 97
[2021-09-22 15:34] LABS: Hematocrit 32.9 % (37.0-47.0); Mean Corpuscular HGB Conc 33.4 g/dl (32-36); Mean Corpuscular Hemoglobin 30.6 pg (26-34); Mean Corpuscular Volume 91.4 fl (80-100); Mean Platelet Volume 8.5 fl (7.4-10.4); Platelet Count Result 359 k/mm3 (150-375); White Blood Count 7.9 K/mm3 (4.5-10.0)
[2021-09-22 15:45] LABS: Lymphocytes Absolute Manual 0.71 K/mm3 (1.1-4.5); Monocytes Absolute Manual 1.26 K/mm3 (0.1-0.90); Monocytes Percent Manual 16 % (3-9); Neutrophils Percent Manual 75 % (46-73); Platelet Estimate Adequate (Adequate); Stomatocytes 1+ (NORMAL); Total Cells Counted 100
[2021-09-22 15:51] LABS: Anion Gap 6 mmol/L (8-16); Blood Urea Nitrogen 7 mg/dL (7-17); Carbon Dioxide 26 mmol/L (22-30); Chloride 96 mmol/L (98-107); Estimated CRCL calculation 58 ml/min; Estimated Glomerular Filt Rate > 60; Glucose 167 mg/dL (65-110); Potassium 4.4 mmol/L (3.4-5.0); Sodium 128 mmol/L (137-145)
[2021-09-22 16:56] VITALS: PULSE 69; RESP 16; O2SAT 98
--- NOTE | 2021-09-22 17:23 | ED.GENADULT ---
HPI - General Adult General Chief complaint: Shortness of Breath/Dyspnea Stated complaint: covid, pneumonia, chest pain Time Seen by Provider: 09/22/21 16:59 Source: patient History of Present Illness HPI narrative: Patient is a 81 y/o female complaining of chest pain and SOB a few hours ago while she was receiving antibody infusion. She describes her pain as sharp and rates it as 8/10. There was no pain. There is no known alleviating or exacerbating factor. However, her pain resolved spontaneously. She has has been having epigastric abdominal pain for several days. Related Data Home Medications Medication Instructions Recorded Confirmed clopidogrel 75 mg PO DAILY 05/09/20 08/19/21 gabapentin 100 mg PO BID 05/09/20 08/19/21 glimepiride 1 mg PO QPM 05/09/20 08/19/21 glimepiride 2 mg PO DAILY 05/09/20 08/19/21 levothyroxine [Synthroid] 125 mcg PO DAILY 05/09/20 08/19/21 valsartan 320 mg PO DAILY 05/09/20 08/19/21 All Day Allergy (cetirizine) 10 mg PO DAILY 07/09/21 08/19/21 diclofenac epolamine 1 patch TRANSDERMAL BID PRN 07/09/21 08/19/21 Allergies Allergy/AdvReac Type Severity Reaction Status Date / Time codeine AdvReac Intermediate SEVERE Verified 09/18/21 10:17 NAUSEA/VOMITING NSAIDS (Non-Steroidal AdvReac Intermediate NAUSEA AND Verified 09/18/21 10:17 Anti-Inflamma GASTRIC PAIN PENTAZOCINE LACTATE AdvReac Severe UNCONCIOUS Uncoded 09/18/21 10:17 FOR 2 DAYS MEPERIDINE HCL AdvReac Mild Nausea Uncoded 09/18/21 10:17 Review of Systems Constitutional: Constitutional: Denies chills, Denies fever(s), Denies headache(s) and Denies weakness Eyes: Eyes: Denies blurry vision ENT: Denies headache(s) and Denies neck pain Cardiovascular: Cardiovascular: Reports chest pain and Reports dyspnea Respiratory: Respiratory: Reports cough and Reports dyspnea Gastrointestinal: Gastrointestinal: Reports abdominal pain, Denies diarrhea, Denies nausea and Denies vomiting Genitourinary: Genitourinary: Denies hematuria and Denies dysuria Musculoskeletal: Musculoskeletal: Denies back pain and Denies neck pain Neurologic: Denies headache(s) and Denies weakness [facility] Past Medical History Medical History CVA (cerebral vascular accident) Diabetes Diverticulitis Hypercholesterolemia Hypertension Hypothyroidism Pancreatitis Surgical History Surgical History History of appendectomy History of arthroscopy of right knee History of thyroidectomy History of tonsillectomy Subcapital fracture of neck of left femur pinning in situ July 10, 2021 Social History Social History Smoking status: Never smoker Alcohol intake: never Substance use: never Gender identity (if verbalized by the patient): Female Spiritual care concerns: No Exam Const: General: no acute distress and well developed Orientation/consciousness: oriented to person, oriented to place, oriented to time and patient oriented x3 HENMT: Head: normocephalic Ears: external ears normal General nose exam: Normal external nose present Eyes: General: appearance normal, both eyes and all related structures Conjunctivae: conjunctivae normal Neck: Neck: normal visual inspection and full ROM Chest: Chest palpation & inspection: normal inspection of the chest and no tenderness Resp: Effort & Inspection: normal respiratory effort Auscultation: clear to auscultation bilaterally Cardio: Rate: regular rate Rhythm: regular rhythm GI: GI Palp: No abdominal tenderness and Yes Soft to palpation Skin: General skin exam: normal color and turgor normal Neuro: General: oriented to person, oriented to place, oriented to time and patient oriented x3 Cognition (Neuro): normal cognition Extrem: General: normal to inspection, full ROM and no pedal edema Psych: Appearance: grossly normal Mental
[2021-09-22 18:36] LABS: Lipase 64 U/L (23-300)
[2021-09-22 18:47] LABS: NT Pro B Type Natriuretic Pept 1060 pg/mL (5-100)
[2021-09-22 18:49] LABS: Troponin I < 0.012 ng/mL (0.000-0.034)
== END 2021-09-22 18:31 | disposition left against medical advice (07) ==
LOC: ANHED 18:01
PROVIDERS: Emergency Medicine; Emergency Provider Emergency Medicine
DX: U07.1 COVID-19 (principal); J12.82 Pneumonia due to coronavirus disease 2019; E11.9 Type 2 diabetes mellitus without complications; E78.00 Pure hypercholesterolemia, unspecified; I10 Essential (primary) hypertension; E89.0 Postprocedural hypothyroidism; Z86.73 Personal history of transient ischemic attack (TIA), and cerebral infarction without residual deficits; Z79.84 Long term (current) use of oral hypoglycemic drugs
CPT/HCPCS: 36415; 71046; 80048; 83690; 83880; 84484; 85025; 93005; 99284

== ENCOUNTER 2022-04-08 10:56 | Outpatient (CLI) | payer MEDICARE, SELFPAY ==
--- NOTE | ~2022-04-08 | CT_ITS ---
EXAMINATION: CT pelvis wo con DATE: 04/08/2022 11:24 INDICATION: Left hip pain. TECHNIQUE: Computed tomography (CT) of the pelvis was performed without intravenous contrast. Automat ed exposure control and iterative reconstruction technique were employed. The dose-length product was 188.35 mGy-cm. COMPARISON: CT abdomen and pelvis 09/18/2021, pelvis and left hip radiographs 04/06/2022 FINDINGS: There are no dilated loops of bowel. Pelvic floor dysfunction is noted. There is prominent fat in left inguinal canal. There is a healed subcapital fracture of left femoral neck with fixation with 3 lag screws. There is serpiginous sclerosis in superior left femoral head, consistent with oste onecrosis. There is moderate osteoarthritis of the hips. There is severe lumbar spondylosis. IMPRESSION: 1. 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 2. Healed subcapital fracture of left femoral neck with internal fixation. 3. Moderate osteoarthritis of the hips. Reviewed, dictated and finalized at location A.
== END 2022-04-08 10:57 | disposition home or self-care (01) ==
LOC: ANHIMG 11:02
PROVIDERS: Visit Provider Orthopaedic Surgery
DX: M87.852 Other osteonecrosis, left femur (principal); M16.0 Bilateral primary osteoarthritis of hip
CPT/HCPCS: 72192

== ENCOUNTER 2022-04-22 12:41 | Outpatient (CLI) | payer MEDICARE, SELFPAY ==
--- NOTE | ~2022-04-22 | MR_ITS ---
EXAMINATION: MR hip LT wo con DATE: 04/22/2022 13:52 INDICATION: Left hip pain TECHNIQUE: Magnetic resonance imaging (MRI) of the left hip was performed without intravenous contra st. Sequences included full-field axial PD-weighted FS FSE and T1-weighted FSE, coronal of the pelvis with PD-weighted FS FSE, T2-weighted FSE and T1-weighted FSE, small field of view of the left hip w ith axial PD-weighted FS FSE, sagittal PD-weighted FS FSE, coronal PD-weighted FS FSE and coronal T2 weighted FSE. Additional radial T1-weighted FGR oriented orthogonal to the acetabular rim were obtai chris for evaluation of the labrum. COMPARISON: None FINDINGS: Bones/labrum/cartilage: Old subcapital fracture of the proximal femur which is fixed with 3 lag screws and which has healed i n near-anatomic alignment. Serpiginous the linear low signal intensity margins to regions of avascula r necrosis at the left femoral head, the larger region present along the anterior nonweightbearing po rtion of the femoral head measuring approximately 1.8 cm craniocaudally and 2.8 cm medial collateral and with a smaller measuring approximately 9 mm in maximal diameter at the posterior superomedial asp ect of the femoral head without appreciable surrounding marrow edema. Marrow edema along a sagittally oriented low signal intensity insufficiency fracture at the left sacral ala. Additional edema and de creased T1 signal at the left pubic body surrounding couple additional subarticular low signal intens ity linear insufficiency fracture line best appreciated the large [id number] coronal images. No pa thologic marrow replacing process. Osteoarthritis at the left hip with mild partial-thickness cartila ge loss resulting in nonuniform joint space narrowing. Marginal osteophytes replacing portions of the acetabular labrum along the superolateral to posterior superior rim of the left acetabulum. Similar mild right hip osteoarthritis suggested on the larger field of view images. Lumbar spondylosis with s evere disc height loss and prominent degenerative endplate changes at L5-S1. Lesser spondylosis in th e more cephalad lumbar spine. Fluid: Symmetric physiologic amount of fluid within both hip joints. Soft tissues: Normal and symmetric muscle bulk and signal in the pelvis and visualized proximal thighs. The iliopso as, gluteal and proximal hamstring tendons are normal. Limited evaluation of visceral organs of the p beatrice is unremarkable. No pathologically enlarged pelvic/inguinal lymphadenopathy. IMPRESSION: 1. Nondisplaced insufficiency fractures at the left sacral ala and left pubic body. 2. Screw fixation of an old healed subcapital fracture of the proximal left femur with couple regions of osteonecrosis at the femoral head without significant surrounding edema. 3. Mild bilateral hip osteoarthritis. 4. Spondylosis, severe at the lumbosacral junction and mild in the more cephalad lumbar spine. Reviewed, dictated and finalized at location A. IMPRESSION: 1. Nondisplaced insufficiency fractures at the left sacral ala and left pubic b ciro. 2. Screw fixation of an old healed subcapital fracture of the proximal left fem ur with couple regions of osteonecrosis at the femoral head without significant surrounding edema. 3. Mild bilateral hip osteoarthritis. 4. Spondylosis, severe at the lumbosacral junction and mild in the more cephala d lumbar spine.
== END 2022-04-22 12:42 | disposition home or self-care (01) ==
LOC: ANHIMG 12:49
PROVIDERS: Visit Provider Orthopaedic Surgery
DX: M16.0 Bilateral primary osteoarthritis of hip (principal); M47.896 Other spondylosis, lumbar region
CPT/HCPCS: 73721

== ENCOUNTER 2022-07-26 04:22 | Inpatient (IN) | payer MEDICARE, SELFPAY ==
[2022-07-26] VITALS (26 sets, daily range): BP systolic 131–195; BP diastolic 54–75; PULSE 64–75; RESP 12–29; TEMP 36.3–36.4; O2SAT 92–100; BMI 22.0
--- NOTE | ~2022-07-26 | XR_ITS ---
EXAMINATION: XR chest 1V portable DATE: 07/26/2022 05:27 INDICATION: Dyspnea. TECHNIQUE: A single frontal view of the chest was obtained. COMPARISON: Chest 2 views 09/22/2021, CT abdomen and pelvis 07/26/2022 FINDINGS: There is mild atelectasis versus scarring in right lower lung zone. There is stable mild sc arring at left lung apex. No pleural effusion or pneumothorax. The heart size is normal. IMPRESSION: 1. Mild atelectasis versus scarring in right lower lung zone. Reviewed, dictated and finalized at location A.
--- NOTE | ~2022-07-26 | XR_ITS ---
EXAMINATION: XR cholangiogram surg 1st inj DATE: 07/28/2022 16:00 CDT INDICATION: IOC . TECHNIQUE: 1 fluoroscopic image of the right upper quadrant and a 115 image cine clip were obtained d uring intraoperative cholangiography performed by the surgeon. I was not present in the operating monalisa m. Fluoroscopy exposure time was 17.5 seconds. Air Kerma 3.99 mGy. DAP 0.66351 mGym2. COMPARISON: Ultrasound abdomen and CT abdomen and pelvis 07/26/2022 FINDINGS: No suspicious filling biliary defect. Contrast flows freely into the duodenum. No contrast leak durin g injection. IMPRESSION: Fluoroscopic documentation of intraoperative cholangiography, without significant finding. Please ref er to the operative note for complete procedural details . Reviewed, dictated and finalized at location K. IMPRESSION: Fluoroscopic documentation of intraoperative cholangiography, without significa nt finding. Please refer to the operative note for complete procedural details .
--- NOTE | ~2022-07-26 | US_ITS ---
EXAMINATION: US abdomen limited DATE: 07/26/2022 12:14 INDICATION: Epigastric abdominal pain. Cholelithiasis. TECHNIQUE: Multiple grayscale and Doppler ultrasound images of the abdomen were obtained. COMPARISON: CT abdomen and pelvis 07/26/2022 FINDINGS: The pancreas demonstrates heterogeneous echogenicity, consistent with acute pancreatitis. T he liver is normal without focal lesion. There is normal flow in main portal vein. The gallbladder is normal in size and contains gallstones. No gallbladder wall thickening or sonographic Wagner sign. T he common duct is normal and measures 5 mm. IMPRESSION: 1. Cholelithiasis. No evidence of acute cholecystitis. 2. Acute pancreatitis. Reviewed, dictated and finalized at location A.
--- NOTE | ~2022-07-26 | CT_ITS ---
EXAMINATION: CT abdomen pelvis w con DATE: 07/26/2022 06:23 INDICATION: Epigastric abdominal pain. Right lower quadrant abdominal pain. Nausea and vomiting. TECHNIQUE: Computed tomography (CT) of the abdomen and pelvis was performed with 100 mL Omnipaque 350 intravenous contrast. Automated exposure control and iterative reconstruction technique were employe d. The dose-length product was 278.35 mGy-cm. COMPARISON: CT pelvis 04/08/2022, CT abdomen and pelvis 09/18/2021 FINDINGS: The visualized portions of the lung bases demonstrate mild atelectasis. A calcified left peter ng nodule is consistent with old granulomatous disease. No pleural effusion. The heart size is normal . There are coronary artery calcifications. No pericardial effusion. Pneumobilia is noted, likely fro m sphincterotomy. The gallbladder is normal in size. The spleen is normal. There is fat stranding and fluid around the pancreas, consistent with pancreatitis. The adrenal glands are normal. There is cor tical thinning of the kidneys. There are cysts in left kidney measuring up to 7 mm. There is divertic ulosis of the colon without evidence of diverticulitis. The appendix measures 8 mm in diameter, incre ased from 5 mm on 09/18/21. There are no pathologically enlarged lymph nodes. There is a chronic subc apital fracture deformity of proximal left femur with internal fixation with 3 lag screws. There is o steonecrosis of left femoral head. There is mild osteoarthritis of the hips. There is severe lumbar a nd lower thoracic spondylosis. IMPRESSION: 1. Acute interstitial pancreatitis. 2. Appendiceal diameter of 8 mm, which is indeterminate for acute appendicitis. Reviewed, dictated and finalized at location A.
--- NOTE | 2022-07-26 04:55 | ED.GENADULT ---
HPI - General Adult General Chief complaint: Nausea/Vomiting/Diarrhea <Kimo Mcclellan MD - Last Filed: 07/26/22 06:48> Stated complaint: n/v abd pain <Kimo Mcclellan MD - Last Filed: 07/26/22 06:48> Time Seen by Provider: 07/26/22 04:54 <Kimo Mcclellan MD - Last Filed: 07/26/22 06:48> History of Present Illness HPI narrative: This is an 82-year-old female with a history of pancreatitis presenting to ED with abdominal pain. Pain started acutely at 11:00 p.m. this evening while she was watching TV. It is a sharp epigastric pain that is nonradiating. It is 10 on 10 in intensity. It is constant. She relates this to previous episodes of pancreatitis. There were no exacerbating or alleviating factors. She has had multiple episodes of nausea and vomiting. She denies fever, chills, chest pain, difficulty breathing. <Kimo Mcclellan MD - Last Filed: 07/26/22 06:48> Related Data Home medications: Home Medications Medication Instructions Recorded Confirmed gabapentin 100 mg capsule 100 mg PO BID 05/09/20 07/26/22 glimepiride 1 mg tablet 1 mg PO QPM 05/09/20 07/26/22 glimepiride 2 mg tablet 2 mg PO DAILY 05/09/20 07/26/22 levothyroxine 112 mcg tablet 125 mcg PO DAILY 05/09/20 07/26/22 (Synthroid) valsartan 320 mg tablet 320 mg PO DAILY 05/09/20 07/26/22 cetirizine 10 mg capsule (All Day 10 mg PO DAILY 07/09/21 07/26/22 Allergy (cetirizine)) diclofenac epolamine 1.3 % 1 patch transdermal BID PRN Back 07/09/21 07/26/22 transdermal 12 hour patch Pain carisoprodol 350 mg tablet 350 mg PO BID 07/26/22 07/26/22 hydralazine 25 mg tablet 25 mg PO BID 07/26/22 07/26/22 nebivolol 10 mg tablet 10 mg PO DAILY 07/26/22 07/26/22 <Kimo Mcclellan MD - Last Filed: 07/26/22 06:48> Allergies/adverse reactions: Allergies Allergy/AdvReac Type Severity Reaction Status Date / Time pentazocine Allergy Severe Unconscious Verified 07/26/22 08:08 codeine AdvReac Intermediate SEVERE Verified 07/26/22 04:28 NAUSEA/VOMITING NSAIDS (Non-Steroidal AdvReac Intermediate NAUSEA AND Verified 07/26/22 04:28 Anti-Inflamma GASTRIC PAIN meperidine AdvReac Mild Nausea Verified 07/26/22 08:08 <Kimo Mcclellan MD - Last Filed: 07/26/22 06:48> Review of Systems Review of Systems: CONSTITUTIONAL: Denies night sweats. EYES: No eye pain ENT: Denies rhinorrhea CARDIOVASCULAR: Denies palpitations RESPIRATORY: Denies hemoptysis GASTROINTESTINAL: Denies hematemesis GENITOURINARY: Denies hematuria. SKIN: Denies rash MUSCULOSKELETAL: Denies myalgia. NEUROLOGIC: Denies weakness. 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 Head atraumatic. EYES: PERRLA/EOMI, NOSE: Normal no drainage NECK: Supple, Trachea midline RESPIRATORY: CTAB, No in
--- NOTE | 2022-07-26 04:58 | ECG_ITS ---
Measurements Intervals [place] [facility] Rate: 73 P: 56 TX: 154 QRS: 20 QRSD: 102 T: 17 QT: 397 QTc: 438 Interpretive Statements SINUS RHYTHM BORDERLINE ST ABNORMALITY- ANTEROLAT/INF LEADS BORDERLINE ECG BASELINE WANDER- III, AVF, V1 COMPARED TO ECG 09/22/2021 15:21:20 ST (T WAVE) DEVIATION NOW PRESENT Electronically Signed On 07-26-2022 6:58:26 CDT by Panchito Garcia D.O.
[2022-07-26] MEDS: HYDROmorphone HCL INJ (*CRX) 1 MG/ML SYR 0.5 MG IV PUSH ×2 (05:04→06:27)
[2022-07-26] MEDS: SODIUM CHLORIDE 0.9% IV 1,000 ML 999 ML IV CONT ×2 (05:04→08:20)
[2022-07-26 05:15] LABS: Glucose Point of Care 224 mg/dl (65-105)
[2022-07-26 05:47] LABS: Basophils Absolute Auto 0.1 K/mm3 (0.0-0.1); Basophils Percent Auto 0.6 % (0.2-1.2); Eosinophils Absolute Auto 0.1 K/mm3 (0-0.3); Eosinophils Percent Auto 0.3 % (0-4.4); Hematocrit 38.2 % (37.0-47.0); Hemoglobin 12.5 g/dL (12.0-15.0); Immature Granulocyte Percent A 0.5 % (0-0.5); Lymphocytes Absolute Auto 1.86 K/mm3 (0.9-3.2); Lymphocytes Percent Auto 9.5 % (18.3-44.2); Mean Corpuscular HGB Conc 32.7 g/dl (32-36); Mean Corpuscular Volume 94.8 fl (80-100); Mean Platelet Volume 8.9 fl (7.4-10.4); Monocytes Absolute Auto 1.5 K/mm3 (0.1-0.6); Monocytes Percent Auto 7.6 % (2.6-8.5); Neutrophils Percent Auto 81.5 % (45.5-73.1); Platelet Count Result 351 k/mm3 (150-375); Red Blood Count 4.03 M/mm3 (4.2-5.4); Red Cell Distribution Width 12.9 % (11.5-14.5); White Blood Count 19.6 K/mm3 (4.5-10.0)
[2022-07-26 05:50] LABS: Alanine Aminotransferase 32 U/L (6-35); Albumin Level 4.3 g/dL (3.5-5.1); Alkaline Phosphatase 123 U/L (38-126); Anion Gap 13 mmol/L (8-16); Aspartate Amino Transferase 42 U/L (14-36); Bilirubin,Total 0.2 mg/dL (0.2-1.3); Blood Urea Nitrogen 17 mg/dL (7-17); Calcium 8.8 mg/dL (8.4-10.2); Carbon Dioxide 23 mmol/L (22-30); Chloride 103 mmol/L (98-107); Estimated CRCL calculation 57 ml/min; Estimated Glomerular Filt Rate > 60; Glucose 223 mg/dL (65-110); Potassium 3.6 mmol/L (3.4-5.0); Sodium 139 mmol/L (137-145)
[2022-07-26 07:02] LABS: Lipase 38656 U/L (23-300)
[2022-07-26 07:13] LABS: Appearance Urine Clear (Clear); Bilirubin Urine Negative (Negative); Blood Urine Negative (Negative); Color Urine Yellow (Yellow); Glucose Urine UA Trace mg/dL (Negative); Ketones Urine Negative (Negative); Leukocyte Esterase Ur Negative LEU/UL (Negative); Nitrate Urine Negative (Negative); Protein Urine Negative (Negative); Urobilinogen Urine 0.2 mg/dL (<2.0)
[2022-07-26 07:25] LABS: Add Urine Microscopic? YES; Mucus Urine Rare /lpf; RBC Urine 0-2 /hpf (0-2); WBC Urine 0-3 /hpf
[2022-07-26 08:19] LABS: Troponin I < 0.012 ng/mL (0.000-0.034)
[2022-07-26 08:20] LABS: SARS-CoV-2 RNA PCR Negative
[2022-07-26] MEDS: fentaNYL CITRATE INJ (*CRX) 100 MCG/2 ML VIAL 50 MCG IV PUSH (08:22)
[2022-07-26] MEDS: PIPERACILLIN/TAZOBACTAM SOD 4.5 GM in SODIUM CHLORIDE 0.9% IV 100 ML 200 ML IVPB (09:05)
[2022-07-26 09:27] LABS: Troponin I < 0.012 ng/mL (0.000-0.034)
[2022-07-26] MEDS: fentaNYL CITRATE INJ (*CRX) 100 MCG/2 ML VIAL 25 MCG IV PUSH ×4 (10:22→20:48)
--- NOTE | 2022-07-26 10:22 | ADMGEN ---
This patient, Hawa Larson, was admitted to [facility] S[facility] Room 324-01. Patient/family oriented to hospital policies and general routines including ID bracelet, bed and alarms, visiting hours, pain management, procedures, bathroom and other care routines, personal items, smoking policy, room service/diet, and visiting hours. Information on how to activate the Rapid Response Team has been discussed. Patient/Family are encouraged to report perceived risks to care and to ask questions if they do not understand what they are told or what they should do.
--- NOTE | 2022-07-26 10:53 | PM.CNGS ---
Assessment and Plan Assessment and plan (1) Abnormal CT of the abdomen: Code(s): R93.5 - Abnormal findings on diagnostic imaging of other abdominal regions, including retroperitoneum Status: Acute Assessment and Plan: CT scan suggests a dilated appendix up to 8 mm with no significant inflammatory stranding. Her labs also showed a WBC count of 19,000. Most of her abdominal pain and tenderness is in her upper abdomen, but she does have some mild tenderness in the right lower quadrant. It appears that her symptoms and acute issues are mostly related to the acute pancreatitis and less likely that she also has acute appendicitis simultaneously. Although, given her leukocytosis and her RLQ tenderness, we will start IV antibiotics and continue to monitor for now. Will continue to follow with labs and serial abdominal exams. (2) Acute pancreatitis: Code(s): K85.90 - Acute pancreatitis without necrosis or infection, unspecified Status: Acute Assessment and Plan: She has recurrent acute pancreatitis. Etiology is unclear. She denies any alcohol use. There have not been any gallstones seen on imaging from previous workup for her pancreatitis. More recently, an ultrasound in 2020 showed sludge in the gallbladder but no stones. 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 A RUQ ultrasound was ordered and we will await these results. LFTs are normal. If there is gallstones or sludge on the ultrasound, there is a possibility that her pancreatitis could be biliary related. Given her negative workup in the past, there is also a chance that she could additionally have issues with papillary stenosis or other etiologies for her pancreatitis. The patient is hesitant to consider surgery, but if this could prevent future episodes of pancreatitis, then it is reasonable to consider eventually proceeding with a cholecystectomy if felt appropriate. Recommend continuing with medical treatment including IV fluids, bowel rest, and analgesics as needed for pain. Will continue to follow labs and discuss surgical options with the patient further as her pancreatitis improves. (3) Leukocytosis: Code(s): D72.829 - Elevated white blood cell count, unspecified Status: Acute (4) Diabetes: Code(s): E11.9 - Type 2 diabetes mellitus without complications Status: Acute Plan I have discussed the patient's case and plan of care with Dr. Sepulveda. Thank you for allowing us to see the patient in consultation and we will continue to follow along with you. History of Present Illness Consult details Consult date: 07/26/22 Reason for consult: other (CT suggesting dilated appendix, acute pancreatitis) Requesting physician: David Stephen III, DO Narrative: This is an 82-year-old woman with a history of type 2 diabetes, hypertension, hypothyroidism, and a history of pancreatitis. She had a sudden onset of upper abdominal pain yesterday morning after eating breakfast. She ate toast with cheese. The pain improved over the next few hours, and she went out to eat for dinner. She ate [place] food. Her abdominal pain then returned around 11:00 p.m. last night. The pain was more severe. She reports her pain is primarily radiating across her upper abdomen, but does radiate down into her right lower quadrant. She developed nausea and vomiting. She had 4 episodes of vomiting at home. Due to the persistent pain, she presented to the ER for evaluation. [place] [address] and a lipase of 38,000. CT scan of the abdomen and pelvis showed acute interstitial pancreatitis and her appendix was dilated to 8 mm, indeterminate for acute appendicitis. The patient has been admitted to the hospitalist service. Our service has been consulted for surgical evaluation of possible acute appendicitis. She is now seen on the medical floor. She reports her abdominal pain
[2022-07-26] MEDS: NEBIVOLOL HCL 5 MG TABLET 10 MG PO (12:33)
[2022-07-26] MEDS: VALSARTAN 160 MG TABLET 320 MG PO (12:33)
[2022-07-26] MEDS: SODIUM CHLORIDE 0.9% IV 1,000 ML 100 ML IV CONT ×2 (12:34→22:21)
[2022-07-26] MEDS: GABAPENTIN 100 MG CAPSULE PO (16:28)
--- NOTE | 2022-07-26 16:44 | PM.IMHP ---
H&P: HPI History of Present Illness Date/Time: 07/26/22 16:44 Chief Complaint: Nausea/Vomiting/Diarrhea? Narrative: ED-HPI narrative: ? This is an 82-year-old female with a history of pancreatitis presenting to ED with abdominal pain.? Pain started acutely at 11:00 p.m. this evening while she was watching TV.? It is a sharp epigastric pain that is nonradiating.? It is 10 on 10 in intensity.? It is constant.? She relates this to previous episodes of pancreatitis.? There were no exacerbating or alleviating factors.? She has had multiple episodes of nausea and vomiting.? She denies fever, chills, chest pain, difficulty breathing. patient with history of recurrent abdominal pain presented emergency did is found to have elevated lipase of 38,000 and white count of 19,000, to further evaluate patient had a CT scan abdomen it showed1. Acute interstitial pancreatitis. 2. Appendiceal diameter of 8 mm, which is indeterminate for acute appendicitis. will consult surgery service and discussed recommended to further evaluate will do the abdominal ultrasound which showed cholelithiasis without acute cholecystitis and acute pancreatitis, we have started the patient on Zosyn, patient be seen by surgery service and GI service and further recommendation to follow. patient admitted as inpatient for acute interstitial pancreatitis, elevated leukocytosis and lipase patient will stay in the hospital for 2 midnights Review of Systems Review of Systems: All systems reviewed & are unremarkable except as noted in HPI and below Constitutional: Constitutional: Reports as per HPI, Reports no additional constitutional complaints, Denies chills, Denies fatigue, Denies fever(s), Denies headache(s) and Denies poor appetite PMFSH Past Medical History Medical History CVA (cerebral vascular accident) Diabetes Diverticulitis Hypercholesterolemia Hypertension Hypothyroidism Pancreatitis Sacral insufficiency fracture Surgical History Surgical History History of arthroscopy of right knee History of ERCP x2 with stents placed and subsequently removed, 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 History of thyroidectomy History of tonsillectomy Subcapital fracture of neck of left femur pinning in situ July 10, 2021 Social History Social History Smoking status: Never smoker Alcohol intake: never Substance use: never Gender identity (if verbalized by the patient): Female Spiritual care concerns: No Meds Home Medications and Allergies Home Medications Medication Instructions Recorded Confirmed Type gabapentin 100 mg capsule 100 mg PO BID 05/09/20 07/26/22 History glimepiride 1 mg tablet 1 mg PO QPM 05/09/20 07/26/22 History glimepiride 2 mg tablet 2 mg PO DAILY 05/09/20 07/26/22 History levothyroxine 112 mcg tablet 125 mcg PO DAILY 05/09/20 07/26/22 History (Synthroid) valsartan 320 mg tablet 320 mg PO DAILY 05/09/20 07/26/22 History cetirizine 10 mg capsule (All Day 10 mg PO DAILY 07/09/21 04/28/22 History Allergy (cetirizine)) diclofenac epolamine 1.3 % 1 patch transdermal BID PRN Back 07/09/21 04/28/22 History transdermal 12 hour patch Pain famotidine 40 mg tablet (Pepcid) 40 mg PO BID PRN abdominal pain 15 09/18/21 04/28/22 Rx days #30 tabs carisoprodol 350 mg tablet 350 mg PO BID 07/26/22 07/26/22 History hydralazine 25 mg tablet 25 mg PO BID 07/26/22 07/26/22 History nebivolol 10 mg tablet 10 mg PO DAILY 07/26/22 07/26/22 History Allergies Allergy/AdvReac Type Severity Reaction Status Date / Time pentazocine Allergy Severe Unconscious Verified 07/26/22 08:08 codeine AdvReac Intermediate SEVERE Verified 07/26/22 04:28 NAUSEA/VOMITING NSAIDS (Non-Steroidal AdvReac Intermediate NAUSEA AND Verified 07/26/22 04:28 Anti-Inflamma GASTRIC PAIN meper
[2022-07-26 18:13] LABS: Glucose Point of Care 184 mg/dl (65-105)
[2022-07-26 18:52] LABS: Hemoglobin A1C 7.5 % (<5.7)
--- NOTE | 2022-07-26 19:24 | PC.NURSE ---
Addendum entered by Nellie Patterson RN 07/26/22 19:25: wrong pt Original Note: pt to discharge with sonia to [place] [facility], report called on day shift to [facility]IM[facility] at [place]. IV removed. Awaiting emt's to transport.
[2022-07-26] MEDS: hydrALAZINE HCL 25 MG TABLET PO (20:37)
[2022-07-26 21:09] LABS: Glucose Point of Care 151 mg/dl (65-105)
[2022-07-27] MEDS: fentaNYL CITRATE INJ (*CRX) 100 MCG/2 ML VIAL 25 MCG IV PUSH ×7 (04:29→23:46)
[2022-07-27 05:21] VITALS: BP 155/56; PULSE 71; RESP 17; TEMP 36.5; O2SAT 98
[2022-07-27] MEDS: LEVOTHYROXINE SODIUM 125 MCG TABLET PO (05:25)
[2022-07-27 06:23] LABS: Hematocrit 33.9 % (37.0-47.0); Hemoglobin 10.8 g/dL (12.0-15.0); Mean Corpuscular HGB Conc 31.9 g/dl (32-36); Mean Corpuscular Hemoglobin 30.7 pg (26-34); Mean Corpuscular Volume 96.3 fl (80-100); Mean Platelet Volume 9.2 fl (7.4-10.4); Platelet Count Result 285 k/mm3 (150-375); Red Blood Count 3.52 M/mm3 (4.2-5.4); Red Cell Distribution Width 13.6 % (11.5-14.5); White Blood Count 12.4 K/mm3 (4.5-10.0)
[2022-07-27 06:49] LABS: Alanine Aminotransferase 24 U/L (6-35); Albumin Level 3.5 g/dL (3.5-5.1); Alkaline Phosphatase 84 U/L (38-126); Anion Gap 8 mmol/L (8-16); Aspartate Amino Transferase 26 U/L (14-36); Bilirubin,Total 0.5 mg/dL (0.2-1.3); Blood Urea Nitrogen 10 mg/dL (7-17); Calcium 7.9 mg/dL (8.4-10.2); Carbon Dioxide 24 mmol/L (22-30); Chloride 105 mmol/L (98-107); Estimated CRCL calculation 57 ml/min; Estimated Glomerular Filt Rate > 60; Glucose 168 mg/dL (65-110); Magnesium 1.9 mg/dL (1.6-2.3); Potassium 3.3 mmol/L (3.4-5.0); Sodium 137 mmol/L (137-145)
[2022-07-27 07:07] LABS: Lipase 2722 U/L (23-300)
[2022-07-27 07:35] LABS: Glucose Point of Care 157 mg/dl (65-105)
[2022-07-27 09:01] VITALS: PULSE 76
[2022-07-27] MEDS: VALSARTAN 160 MG TABLET 320 MG PO (09:01)
[2022-07-27] MEDS: NEBIVOLOL HCL 5 MG TABLET 10 MG PO (09:01)
--- NOTE | 2022-07-27 09:01 | PM.PNGS ---
Progress Note: A&P Assessment and Plan (1) Acute pancreatitis: Code(s): K85.90 - Acute pancreatitis without necrosis or infection, unspecified Status: Acute Assessment and Plan: Discussed u/s results with patient. Gallstones seen and this could be the cause of her pancreatitis. Will try clear liquids today. Repeat labs in AM. Discussed possibly proceeding with Lap venkatesh with IOC, possible appendectomy tomorrow. (2) Cholelithiasis: Code(s): K80.20 - Calculus of gallbladder without cholecystitis without obstruction Status: Acute (3) Abnormal CT of the abdomen: Code(s): R93.5 - Abnormal findings on diagnostic imaging of other abdominal regions, including retroperitoneum Status: Acute Subjective Subjective Date/Time Seen: 07/27/22 09:01 Interval history: Feeling a little better. Still having a little RUQ and RLQ pain. Exam GI: GI Palp: Yes Soft to palpation, Yes Tenderness to palpation present (GI) (RLQ and RUQ) and No Guarding due to palpation present (GI) Objective Data Vital Signs Vital Signs: Vital Signs - 24 hr 07/26/22 09:16 07/26/22 09:50 07/26/22 12:33 Temperature 36.3 C L Pulse Rate 75 73 73 Respiratory Rate 16 Blood Pressure 161/66 H 163/54 H Pulse Oximetry 97 100 Oxygen Delivery 07/26/22 14:00 07/26/22 19:36 07/26/22 21:27 Temperature 36.3 C L 36.3 C L Pulse Rate 71 71 69 Respiratory Rate 12 12 17 Blood Pressure 131/71 141/66 H Pulse Oximetry 99 99 99 Oxygen Delivery Room Air 07/27/22 05:21 07/26/22 10:18 Temperature 36.5 C 36.3 C L Pulse Rate 71 73 Respiratory Rate 17 16 Blood Pressure 155/56 H 163/54 H Pulse Oximetry 98 100 Oxygen Delivery Intake/Output Intake/Output: Intake & Output 07/24/22 07/25/22 07/26/22 07/27/22 23:59 23:59 23:59 23:59 Intake Total 3660 150 Output Total 300 500 Balance 3360 -350 Meds/Results Medications: Active Medications Generic Name Dose Route Start Last Admin Trade Name Freq PRN Reason Stop Dose Admin Dextrose 12.5 gm 07/26/22 16:56 Dextrose 50% 25 Gm/50 Ml Syringe IV PUSH PRN PRN Hypoglycemia Protocol Fentanyl Citrate 25 mcg 07/26/22 08:05 07/27/22 04:29 Fentanyl Citrate Inj (*Crx) 100 Mcg/2 Ml Vial IV PUSH 25 mcg Q2H PRN Administration Pain Rated 7-10 Gabapentin 100 mg 07/26/22 17:00 07/26/22 16:28 Gabapentin 100 Mg Capsule PO 100 mg BID JOSE Administration Glucagon 1 mg 07/26/22 16:56 Glucagon For Inj 1 Mg Vial IM PRN PRN Hypoglycemia Protocol Glucose 15 gm 07/26/22 16:56 Glucose Oral Gel 15 Gm Of Glucse In 37.5 Gm Tube PO PRN PRN Hypoglycemia Protocol Hydralazine HCl 25 mg 07/26/22 21:00 07/26/22 20:37 Hydralazine Hcl 25 Mg Tablet PO 25 mg Q12HR JOSE Administration Sodium Chloride 1,000 mls @ 100 mls/hr 07/26/22 10:35 07/26/22 22:21 Normal Saline Iv IV CONT 100 mls/hr .Q10H JOSE Administration Acetaminophen 1,000 mg in 100 mls @ 400 mls/hr 07/26/22 10:51 07/27/22 05:59 Ofirmev 1,000 Mg Ivpb IVPB 07/27/22 10:50 400 mls/hr Q6H PRN Administration Pain Rated 4-6 Piperacillin/Tazobactam/Dextrose 3.375 gm in 50 mls @ 100 mls/hr 07/26/22 15:00 07/27/22 03:53 Zosyn 3.375 Gm/D5w 50ml Pm IVPB Infused Q6H JOSE Infusion Dextrose 1,000 mls @ 100 mls/hr 07/26/22 16:56 Dextrose 5% 1,000 Ml IVPB PRN PRN Hypoglycemia Protocol Insulin Aspart 2 - 5 units 07/26/22 17:00 07/27/22 08:58 Insulin Aspart (*Bkc) 100 Units/Ml SUB-Q Not Given TIDWM JOSE Protocol Levothyroxine Sodium 125 mcg 07/27/22 06:30 07/27/22 05:25 Levothyroxine Sodium 125 Mcg Tablet PO 125 mcg DAILY@0630 JOSE Administration Nebivolol 10 mg 07/26/22 12:00 07/26/22 12:33 Nebivolol Hcl 5 Mg Tablet PO 10 mg DAILY JOSE Administration Ondansetron HCl 4 mg 07/26/22 08:05 Ondansetron Inj 4 Mg/2 Ml Vial IV PUSH Q4H P
[2022-07-27] MEDS: GABAPENTIN 100 MG CAPSULE PO ×2 (09:02→16:16)
[2022-07-27 09:11] VITALS: O2SAT 98
[2022-07-27] MEDS: POTASSIUM CHLORIDE 20 MEQ TABLET 40 MEQ PO (11:04)
[2022-07-27] MEDS: SODIUM CHLORIDE 0.9% IV 1,000 ML 100 ML IV CONT ×2 (11:09→20:44)
[2022-07-27 11:30] LABS: Glucose Point of Care 153 mg/dl (65-105)
--- NOTE | 2022-07-27 13:00 | PM.IMPN ---
Progress Note: A&P Assessment and Plan (1) Acute pancreatitis: Code(s): K85.90 - Acute pancreatitis without necrosis or infection, unspecified Status: Acute Assessment and Plan: ED-HPI narrative: ? This is an 82-year-old female with a history of pancreatitis presenting to ED with abdominal pain.? Pain started acutely at 11:00 p.m. this evening while she was watching TV.? It is a sharp epigastric pain that is nonradiating.? It is 10 on 10 in intensity.? It is constant.? She relates this to previous episodes of pancreatitis.? There were no exacerbating or alleviating factors.? She has had multiple episodes of nausea and vomiting.? She denies fever, chills, chest pain, difficulty breathing. 07/27/2022 interval history: patient with history of recurrent abdominal pain presented emergency is found to have elevated lipase of 38,000 and white count of 19,000, to further evaluate patient had a CT scan abdomen it showed1. Acute interstitial pancreatitis.2. Appendiceal diameter of 8 mm, which is indeterminate for acute appendicitis. today patient lipase have trended down to 2722 and white counts have trended down to 12,400, her pain is still persisting, patient was again seen by surgery service and recommended cholecystectomy however patient is reluctant will continue to monitor, we have started the patient on Zosyn, patient will be seen by surgery service and GI service and further recommendation to follow. (2) Diabetes: Code(s): E11.9 - Type 2 diabetes mellitus without complications Status: Acute Assessment and Plan: will hold oral medication and monitor with sliding scale (3) Hypothyroidism: Code(s): E03.9 - Hypothyroidism, unspecified Status: Acute Assessment and Plan: will continue home regimen (4) Hypercholesterolemia: Code(s): E78.00 - Pure hypercholesterolemia, unspecified Status: Acute Assessment and Plan: will hold statin (5) Leukocytosis: Code(s): D72.829 - Elevated white blood cell count, unspecified Status: Acute Assessment and Plan: most likely secondary to acute pancreatitis. (6) Abnormal CT of the abdomen: Code(s): R93.5 - Abnormal findings on diagnostic imaging of other abdominal regions, including retroperitoneum Status: Acute Assessment and Plan: CT scan of the abdomen shows interstitial pancreatitis there is also concerning patient may have appendicitis patient is seen by surgery service and further recommendation to follow. Subjective Date/time seen: 07/27/22 13:00 07/27/2022 interval history: patient with history of recurrent abdominal pain presented emergency is found to have elevated lipase of 38,000 and white count of 19,000, to further evaluate patient had a CT scan abdomen it showed1. Acute interstitial pancreatitis.2. Appendiceal diameter of 8 mm, which is indeterminate for acute appendicitis. today patient lipase have trended down to 2722 and white counts have trended down to 12,400, her pain is still persisting, patient was again seen by surgery service and recommended cholecystectomy however patient is reluctant will continue to monitor, we have started the patient on Zosyn, patient will be seen by surgery service and GI service and further recommendation to follow. Review of Systems Review of Systems: All systems reviewed & are unremarkable except as noted in HPI and below Exam Narrative: elderly frail Patient is comfortable, NAD HEENT: eyes are clear and none icteric LUNGS: normal respiratory effort ABD: not distended Lower extremities: no edema SKIN: nonjaundiced Neuro: grossly intact. Objective Data Vital Signs Vital Signs: Vital Signs - 24 hr 07/26/22 14:00 07/26/22 19:36 07/26/22 21:27 Temperature 97.3 F L 97.4 F L Pulse Rate 71 71 69 Respiratory Rate 12 12 17 Blood Pressure 131/71 141/66 H Pulse Oximetry 99 99 99 Oxygen Delivery Room Air 0
[2022-07-27 14:00] VITALS: BP 150/69; PULSE 70; RESP 18; TEMP 35.9; O2SAT 97
--- NOTE | 2022-07-27 14:10 | WPDGICN ---
Assessment and Plan Assessment and plan (1) Acute pancreatitis: Code(s): K85.90 - Acute pancreatitis without necrosis or infection, unspecified Status: Acute Assessment and Plan: recurrent pancreatitis, this time also found cholelithiasis still with pain but better, will try CL diet surgery in the case, may need lap venkatesh (patient says that in the past took ursodiol because sludge in GB ) (2) Abnormal CT of the abdomen: Code(s): R93.5 - Abnormal findings on diagnostic imaging of other abdominal regions, including retroperitoneum Status: Acute Assessment and Plan: also enlarged appendix but no inflammation surgery in the case (3) Cholelithiasis: Code(s): K80.20 - Calculus of gallbladder without cholecystitis without obstruction Status: Acute (4) Leukocytosis: Code(s): D72.829 - Elevated white blood cell count, unspecified Status: Acute Assessment and Plan: monitor (5) Abdominal pain, acute, right lower quadrant: Code(s): R10.31 - Right lower quadrant pain Status: Acute Assessment and Plan: from pancreatitis (6) History of ERCP: Code(s): Z98.890 - Other specified postprocedural states Status: Acute GI Consult Note Consult date/time: 07/27/22 14:10 Reason for consult: GS pancreatitis, n/v HPI: Hawa Larson is a 82 year old female with history of type 2 diabetes, hypertension, hypothyroidism, and a history of pancreatitis.? This time she is here after sudden onset of upper abdominal pain after eating breakfast that eventually got severe and then associated to nausea and vomiting like previous episode of pancreatitis. [place] [address] and a lipase of 38,000. CT scan of the abdomen and pelvis showed acute interstitial pancreatitis and her appendix was dilated to 8 mm, indeterminate for acute appendicitis.?Her first episode of pancreatitis was following an ERCP in 2016 at [facility] in [place] to evaluate for suspicion of sphincter of Oddi dysfunction. 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 Apparently, this was complicated by injury to the bowel during the procedure and post-ERCP pancreatitis. She developed an intra-abdominal infection and remained hospitalized. She reportedly was taken to surgery for laparoscopic washout. She eventually had another ERCP in November of 2017 for removal of her stents and apparently had extraction of stone material, since she had other episodes of pancreatitis. She denies alcohol use and had normal lipid panel. Here had Abdomen ultrasound reviewed and showed Cholelithiasis. No evidence of acute cholecystitis, acute pancreatitis. Surgery is in the case. Review of Systems Review of Systems: All systems reviewed & are unremarkable except as noted in HPI and below Constitutional: Constitutional: Reports as per HPI, Reports no additional constitutional complaints, Denies chills, Denies fatigue, Denies fever(s), Denies headache(s) and Denies poor appetite Eyes: Eyes: Reports no additional eye complaints ENT: Reports system reviewed and no additional complaints, except as documented Cardiovascular: Cardiovascular: Reports no additional cardiovascular complaints, Denies chest pain and Denies leg edema Respiratory: Respiratory: Reports no additional respiratory complaints, Denies cough and Denies dyspnea Gastrointestinal: Gastrointestinal: Reports as per HPI, Reports no additional gastrointestinal complaints, Reports abdominal pain, Denies melena, Denies hematochezia, Denies change in bowel habits, Denies change in stool character, Denies coffee ground emesis, Denies constipation, Reports diarrhea (chronic issues with diarrhea since COVID in 2020), Reports nausea, Reports vomiting and Denies hematemesis Genitourinary: Genitourinary: Reports no additional female genitourinary complaints, Denies hematuria
[2022-07-27 16:20] LABS: Glucose Point of Care 162 mg/dl (65-105)
[2022-07-27] MEDS: DOCUSATE SODIUM 100 MG CAPSULE PO (17:38)
[2022-07-27 20:01] LABS: Glucose Point of Care 158 mg/dl (65-105)
[2022-07-27 20:43] VITALS: BP 165/65; PULSE 77; RESP 16; TEMP 36.8; O2SAT 98
[2022-07-27] MEDS: hydrALAZINE HCL 25 MG TABLET PO (20:45)
[2022-07-28] VITALS (13 sets, daily range): BP systolic 117–172; BP diastolic 47–90; PULSE 67–77; RESP 14–20; TEMP 36.1–37.3; O2SAT 94–100
[2022-07-28] MEDS: fentaNYL CITRATE INJ (*CRX) 100 MCG/2 ML VIAL 25 MCG IV PUSH ×4 (02:09→12:22)
[2022-07-28] MEDS: LEVOTHYROXINE SODIUM 125 MCG TABLET PO (05:41)
[2022-07-28] MEDS: SODIUM CHLORIDE 0.9% IV 1,000 ML 100 ML IV CONT (05:41)
[2022-07-28 07:29] LABS: Hematocrit 32.5 % (37.0-47.0); Hemoglobin 10.6 g/dL (12.0-15.0); Mean Corpuscular HGB Conc 32.6 g/dl (32-36); Mean Platelet Volume 9.5 fl (7.4-10.4); Platelet Count Result 266 k/mm3 (150-375); Red Blood Count 3.42 M/mm3 (4.2-5.4); Red Cell Distribution Width 13.6 % (11.5-14.5); White Blood Count 13.2 K/mm3 (4.5-10.0)
[2022-07-28 07:38] LABS: Alanine Aminotransferase 34 U/L (6-35); Albumin Level 3.4 g/dL (3.5-5.1); Alkaline Phosphatase 141 U/L (38-126); Anion Gap 8 mmol/L (8-16); Aspartate Amino Transferase 37 U/L (14-36); Bilirubin,Total 0.6 mg/dL (0.2-1.3); Blood Urea Nitrogen 6 mg/dL (7-17); Calcium 8.2 mg/dL (8.4-10.2); Carbon Dioxide 24 mmol/L (22-30); Chloride 106 mmol/L (98-107); Estimated CRCL calculation 57 ml/min; Estimated Glomerular Filt Rate > 60; Glucose 154 mg/dL (65-110); Lipase 299 U/L (23-300); Potassium 3.8 mmol/L (3.4-5.0); Sodium 138 mmol/L (137-145)
[2022-07-28 08:27] LABS: Glucose Point of Care 155 mg/dl (65-105)
[2022-07-28] MEDS: LORATADINE 10 MG TABLET PO (08:31)
[2022-07-28] MEDS: NEBIVOLOL HCL 5 MG TABLET 10 MG PO (08:31)
[2022-07-28] MEDS: VALSARTAN 160 MG TABLET 320 MG PO (08:32)
[2022-07-28] MEDS: GABAPENTIN 100 MG CAPSULE PO ×2 (08:32→17:59)
[2022-07-28] MEDS: polyethylene glycoL 3350 17 GM POWD.PACK PO (08:34)
--- NOTE | 2022-07-28 09:34 | PC.NURSE ---
Patient requested IV fluids be put on standby, states she is going to the restroom every 30/45min. Is not on diuretics. Called Dr. Malone, agreed to standby fluids.
[2022-07-28 11:48] LABS: Glucose Point of Care 153 mg/dl (65-105)
--- NOTE | 2022-07-28 12:34 | WPDGIPROGNO ---
Progress Note: A&P Assessment and Plan (1) Acute pancreatitis: Code(s): K85.90 - Acute pancreatitis without necrosis or infection, unspecified Status: Acute Assessment and Plan: improving, noted cholelithiasis and today will have lap venkatesh lipase normal now will follow [place], call if questions (2) Cholelithiasis: Code(s): K80.20 - Calculus of gallbladder without cholecystitis without obstruction Status: Acute Assessment and Plan: lap venkatesh (3) Abdominal pain, epigastric: Code(s): R10.13 - Epigastric pain Status: Acute Assessment and Plan: improving (4) History of ERCP: Code(s): Z98.890 - Other specified postprocedural states Status: Acute Subjective Date/time seen: 07/28/22 12:34 Interval history: still with nausea and abdominal pain but improving since started. Review of Systems Review of Systems: All systems reviewed & are unremarkable except as noted in HPI and below Exam Const: General: comfortable, no acute distress and awake Nutritional Appearance: average body habitus Orientation/consciousness: patient oriented x3 HENMT: Head: normocephalic and atraumatic Ears: hearing grossly normal bilaterally Eyes: General: appearance normal, both eyes and all related structures Pupils: Equal, round and reactive pupils present Neck: Neck: normal visual inspection and full ROM Resp: Effort & Inspection: no respiratory distress Auscultation: clear to auscultation bilaterally Cardio: Rate: regular rate Rhythm: regular rhythm GI: Inspection: normal to inspection and non-distended GI Palp: Yes Soft to palpation, Yes Tenderness to palpation present (GI) (diffuse tenderness throughout, but worst in the upper abdomen), Yes Guarding due to palpation present (GI) (epigastric and LUQ), Yes No hepatosplenomegaly present and No Rebound tenderness present Auscultation: Hypoactive bowel sounds present Back/Spine/Pelvis: Back: no CVA tenderness Skin: General skin exam: normal color Rashes: no rashes Neuro: General: moves all extremities and no focal motor deficits Speech: normal speech Motor exam (neuro): 5/5 motor strength present throughout Extrem: General: normal to inspection and no edema Psych: Mental Status: mental status grossly normal Affect: normal affect Attitude: cooperative Insight: Good insight present (Psych) Judgement: Good judgement present (Psych) Objective Data Vital Signs Vital Signs: Vital Signs - 24 hr 07/27/22 14:00 07/27/22 20:43 07/27/22 20:00 Temperature 96.7 F L 98.3 F Pulse Rate 70 77 Respiratory Rate 18 16 Blood Pressure 150/69 H 165/65 H Pulse Oximetry 97 98 Oxygen Delivery Room Air 07/28/22 06:00 07/28/22 08:00 07/28/22 08:31 Temperature 97 F L Pulse Rate 72 74 Respiratory Rate 17 Blood Pressure 154/62 H Pulse Oximetry 94 Oxygen Delivery Room Air Intake/Output Intake/Output: Intake & Output 07/25/22 07/26/22 07/27/22 07/28/22 23:59 23:59 23:59 23:59 Intake Total 3660 2540 1100 Output Total 300 1700 300 Balance 3360 840 800 Meds/Results Medications: Active Medications Generic Name Dose Route Start Last Admin Trade Name Freq PRN Reason Stop Dose Admin Dextrose 12.5 gm 07/26/22 16:56 Dextrose 50% 25 Gm/50 Ml Syringe IV PUSH PRN PRN Hypoglycemia Protocol Fentanyl Citrate 25 mcg 07/26/22 08:05 07/28/22 12:22 Fentanyl Citrate Inj (*Crx) 100 Mcg/2 Ml Vial IV PUSH 25 mcg Q2H PRN Administration Pain Rated 7-10 Gabapentin 100 mg 07/26/22 17:00 07/28/22 08:32 Gabapentin 100 Mg Capsule PO 100 mg BID JOSE Administration Glucagon 1 mg 07/26/22 16:56 Glucagon For Inj 1 Mg Vial IM PRN PRN Hypoglycemia Protocol Glucose 15 gm 07/26/22 16:56 Glucose Oral Gel 15 Gm Of Glucse In 37.5 Gm Tube PO PRN PRN Hypoglycemia Protocol Hydralazine HCl 25 mg 07/26/22 21:00 07/28/22 08
--- NOTE | 2022-07-28 13:16 | WPDANESEPPF ---
Anes - Initial Pre Proc Eval Procedure: Operation Date: 07/28/22 15:00 Proposed Procedures p Laparoscopic Cholecystectomy with Intraoperative Cholangiogram - Ciro Sepulveda DO Date/Time: 07/28/22 13:16 Surgeon: Willian Verduzco MD Pre Op Diagnosis: Pancreatitis Patient Data Age: 82 Gender: F Height: 1.65 m Weight: 60 kg Last Vital Signs Temp 36.1 C L 07/28/22 06:00 Pulse 74 07/28/22 08:31 Resp 17 07/28/22 06:00 BP 154/62 H 07/28/22 06:00 Pulse Ox 94 07/28/22 06:00 O2 Del Method Room Air 07/28/22 08:00 Allergies Allergy/AdvReac Type Severity Reaction Status Date / Time pentazocine Allergy Severe Unconscious Verified 07/26/22 08:08 codeine AdvReac Intermediate SEVERE Verified 07/26/22 04:28 NAUSEA/VOMITING NSAIDS (Non-Steroidal AdvReac Intermediate NAUSEA AND Verified 07/26/22 04:28 Anti-Inflamma GASTRIC PAIN meperidine AdvReac Mild Nausea Verified 07/26/22 08:08 Home Medications Medication Instructions Recorded Confirmed Type gabapentin 100 mg capsule 100 mg PO BID 05/09/20 07/26/22 History glimepiride 1 mg tablet 1 mg PO QPM 05/09/20 07/26/22 History glimepiride 2 mg tablet 2 mg PO DAILY 05/09/20 07/26/22 History levothyroxine 112 mcg tablet 125 mcg PO DAILY 05/09/20 07/26/22 History (Synthroid) valsartan 320 mg tablet 320 mg PO DAILY 05/09/20 07/26/22 History cetirizine 10 mg capsule (All Day 10 mg PO DAILY 07/09/21 07/26/22 History Allergy (cetirizine)) diclofenac epolamine 1.3 % 1 patch transdermal BID PRN Back 07/09/21 07/26/22 History transdermal 12 hour patch Pain famotidine 40 mg tablet (Pepcid) 40 mg PO BID PRN abdominal pain 15 09/18/21 07/26/22 Rx days #30 tabs carisoprodol 350 mg tablet 350 mg PO BID 07/26/22 07/26/22 History hydralazine 25 mg tablet 25 mg PO BID 07/26/22 07/26/22 History nebivolol 10 mg tablet 10 mg PO DAILY 07/26/22 07/26/22 History Laboratory Tests 07/27/22 07/27/22 07/28/22 16:04 19:56 07:00 WBC 13.2 K/mm3 H K/mm3 (4.5-10.0) RBC 3.42 M/mm3 L M/mm3 (4.2-5.4) Hgb 10.6 g/dL L g/dL (12.0-15.0) Hct 32.5 % L % (37.0-47.0) MCV 95.0 fl fl (80-100) MCH 31.0 pg pg (26-34) MCHC 32.6 g/dl g/dl (32-36) RDW 13.6 % % (11.5-14.5) Plt Count 266 k/mm3 k/mm3 (150-375) MPV 9.5 fl fl (7.4-10.4) Sodium Potassium Chloride Carbon Dioxide Anion Gap BUN Creatinine Estim Creat Clear Calc Estimated GFR Glucose POC Capillary Glucose 162 mg/dl H mg/dl 158 mg/dl H mg/dl (65-105) (65-105) Calcium Magnesium Total Bilirubin AST ALT Alkaline Phosphatase Total Protein Albumin Lipase Blood Type Antibody Screen 07/28/22 07/28/22 07/28/22 07:00 08:17 09:47 WBC RBC Hgb Hct MCV MCH MCHC RDW Plt Count MPV Sodium 138 mmol/L mmol/L (137-145) Potassium 3.8 mmol/L mmol/L (3.4-5.0) Chloride 106 mmol/L mmol/L (98-107) Carbon Dioxide 24 mmol/L mmol/L (22-30) Anion Gap 8 mmol/L mmol/L (8-16) BUN 6 mg/dL L mg/dL (7-17) Creatinine 0.60 mg/dL L mg/dL (0.7-1.0) Estim Creat Clear Calc 57 ml/min ml/min Estimated GFR > 60 (59 - ) Glucose 154 mg/dL H mg/dL (65-110) POC Capillary Glucose 155 mg/dl H mg/dl (65-105) Calcium 8.2 mg/dL L mg/dL (8.4-10.2) Magnesium 2.0 mg/dL mg/dL (1.6-2.3) Total Bilirubin 0.6 mg/dL mg/dL (0.2-1.3) AST 37 U/L H U/L (14-36) ALT 34 U/L U/L
--- NOTE | 2022-07-28 13:59 | PM.PNGS ---
Progress Note: A&P Assessment and Plan (1) Acute pancreatitis: Code(s): K85.90 - Acute pancreatitis without necrosis or infection, unspecified Status: Acute Assessment and Plan: Patient continues to have some symptoms. Her lipase is normalizing. I have recommended proceeding with laparoscopic cholecystectomy with intraoperative cholangiogram, possible open. Also discussed assessing the appendix at the time of surgery and making a decision possible appendectomy during surgery. I discussed the procedure, risks, benefits, and alternatives questions were answered. Subjective Subjective Date/Time Seen: 07/28/22 13:59 Interval history: Patient states she still had pain yesterday while drinking clear liquids. She denies any nausea or vomiting. Her right lower quadrant pain is slightly better. Exam GI: GI Palp: Yes Soft to palpation and Yes Tenderness to palpation present (GI) (Right upper quadrant) Objective Data Vital Signs Vital Signs: Vital Signs - 24 hr 07/27/22 14:00 07/27/22 20:43 07/27/22 20:00 Temperature 35.9 C L 36.8 C Pulse Rate 70 77 Respiratory Rate 18 16 Blood Pressure 150/69 H 165/65 H Pulse Oximetry 97 98 Oxygen Delivery Room Air 07/28/22 06:00 07/28/22 08:00 07/28/22 08:31 Temperature 36.1 C L Pulse Rate 72 74 Respiratory Rate 17 Blood Pressure 154/62 H Pulse Oximetry 94 Oxygen Delivery Room Air Intake/Output Intake/Output: Intake & Output 07/25/22 07/26/22 07/27/22 07/28/22 23:59 23:59 23:59 23:59 Intake Total 3660 2540 1100 Output Total 300 1700 300 Balance 3360 840 800 Meds/Results Medications: Active Medications Generic Name Dose Route Start Last Admin Trade Name Freq PRN Reason Stop Dose Admin Dextrose 12.5 gm 07/26/22 16:56 Dextrose 50% 25 Gm/50 Ml Syringe IV PUSH PRN PRN Hypoglycemia Protocol Fentanyl Citrate 25 mcg 07/26/22 08:05 07/28/22 12:22 Fentanyl Citrate Inj (*Crx) 100 Mcg/2 Ml Vial IV PUSH 25 mcg Q2H PRN Administration Pain Rated 7-10 Fentanyl Citrate 25 mcg 07/28/22 13:16 Fentanyl Citrate Inj (*Crx) 100 Mcg/2 Ml Vial IV PUSH Q2M PRN Pain Gabapentin 100 mg 07/26/22 17:00 07/28/22 08:32 Gabapentin 100 Mg Capsule PO 100 mg BID JOSE Administration Glucagon 1 mg 07/26/22 16:56 Glucagon For Inj 1 Mg Vial IM PRN PRN Hypoglycemia Protocol Glucose 15 gm 07/26/22 16:56 Glucose Oral Gel 15 Gm Of Glucse In 37.5 Gm Tube PO PRN PRN Hypoglycemia Protocol Hydralazine HCl 25 mg 07/26/22 21:00 07/28/22 08:32 Hydralazine Hcl 25 Mg Tablet PO Not Given Q12HR JOSE Sodium Chloride 1,000 mls @ 100 mls/hr 07/26/22 10:35 07/28/22 05:41 Normal Saline Iv IV CONT 100 mls/hr .Q10H JOSE Administration Piperacillin/Tazobactam/Dextrose 3.375 gm in 50 mls @ 100 mls/hr 07/26/22 15:00 07/28/22 09:05 Zosyn 3.375 Gm/D5w 50ml Pm IVPB Infused Q6H JOSE Infusion Dextrose 1,000 mls @ 100 mls/hr 07/26/22 16:56 Dextrose 5% 1,000 Ml IVPB PRN PRN Hypoglycemia Protocol Lactated Ringer's 1,000 mls @ 30 mls/hr 07/28/22 13:20 Lr - Lactated Ringers Iv IV CONT .Q24H JOSE Lactated Ringer's 1,000 mls @ 30 mls/hr 07/28/22 13:20 Lr - Lactated Ringers Iv IV CONT .Q24H JOSE Insulin Aspart 2 - 5 units 07/26/22 17:00 07/28/22 11:51 Insulin Aspart (*Bkc) 100 Units/Ml SUB-Q Not Given TIDWM [facility] Protocol Levothyroxine Sodium 125 mcg 07/27/22 06:30 07/28/22 05:41 Levothyroxine Sodium 125 Mcg Tablet PO 125 mcg DAILY@0630 JOSE Administration Loratadine 10 mg 07/28/22 09:00 07/28/22 08:31 Loratadine 10 Mg Tablet PO 10 mg QAM JOSE Administration Nebivolol 10 mg 07/26/22 12:00 07/28/22 08:31 Nebivolol Hcl 5 Mg Tablet PO 10 mg DAILY JOSE Administration Ondansetron HCl 4 mg 07/26/22 08:05 Ondansetron Inj 4 Mg/2 Ml Vial IV PUSH Q4H PRN
[2022-07-28] MEDS: LACTATED RINGERS 1,000 ML 30 ML IV CONT (14:15)
--- NOTE | 2022-07-28 15:00 | WPDHPUPDATE1 ---
History and Physical Update Update Date/Time: 07/28/22 15:00 History and Physical has been reviewed, including an updated exam of the patient. There are NO changes in the patient's condition. Risks, benefits, and alternatives have been discussed and questions answered. Patient agrees to proceed with procedure.
[2022-07-28] MEDS: BUPIVACAINE/EPINEPHRINE 0.25% 50 ML VIAL 30 ML INFILTRATE (16:01)
--- NOTE | 2022-07-28 16:41 | W.PM.PROC2 ---
Procedure Note - Detailed Date of Procedure 07/28/22 Pre-op Diagnosis Pancreatitis, cholelithiasis Post-op Diagnosis Same Procedure Performed Laparoscopic Cholecystectomy with intraoperative cholangiogram Surgeon Ciro Sepulveda, DO Anesthesia General and Local (0.5% bupivacaine) Indications This is an 82-year-old woman who presented to the emergency department several days ago with epigastric abdominal pain. He was having some pain radiating to her right upper quadrant and right lower quadrant. A CT showed evidence of acute pancreatitis and she had significantly elevated lipase levels. Her CT also showed a borderline dilated appendix with no other surrounding inflammation. She was admitted for further treatment. A gallbladder ultrasound did show evidence of cholelithiasis and gallbladder sludge. Discussions were then made with the patient about treatment options and she was showing signs of improvement from her pancreatitis. Decision was made to proceed with laparoscopic cholecystectomy with intraoperative cholangiogram, possible open, possible laparoscopic appendectomy. Findings Laparoscopic cholecystectomy with cholangiogram was performed. Upon entering the abdomen laparoscopically I initially inspected the right lower quadrant. I did have to place an extra port in the lower midline abdomen to help with identifying the cecum and appendix. The appendix appeared normal in size without any signs of inflammation, perforation, or other abnormalities. I then moved my attention to the gallbladder. The gallbladder did have several pericholecystic adhesions. Once the adhesions were taken down I was able to identify the neck of the gallbladder and identify the cystic duct. The cystic duct appeared normal in size. Intraoperative cholangiogram was obtained using Omnipaque contrast. The images were sent to the radiologist for interpretation. I did not see any filling defects or signs of occlusion within the common bile duct. Contrast was visualized entering into the duodenum. The gallbladder was then removed and sent to the lab for pathology. Description of Procedure Procedure as well as risks, benefits, and alternatives were discussed with patient. Written consent was obtained and placed in chart prior to procedure. The patient was brought back to surgical suite. Patient was placed in supine position on operating table. Time-out was done to confirm patient and procedure. Patient was then intubated by the anesthesia department. Abdomen was prepped and draped in sterile fashion using chlorhexidine prep. 0.5% bupivacaine with epinephrine was infiltrated at each site of incision. A 5 millimeter incision was made near the umbilicus, and a 5 millimeter Optiview trocar was advanced through the abdominal layers under direct visualization. Once inside the abdominal cavity, carbon dioxide was insufflated to create a pneumoperitoneum. The camera was inserted and the abdomen was inspected. No immediate abnormalities were identified. The patient was placed in reverse Trendelenburg position and rotated slightly to the left. An 11 millimeter incision was made in the subxiphoid region, and an 11 millimeter trocar was inserted under direct visualization. Two 5 millimeter incisions were made in the right upper quadrant, and two 5 millimeter trocars were inserted under direct visualization. The gallbladder was identified and grasped at the fundus and retracted superiorly. It was then grasped at the infundibulum retracted laterally. Careful dissection around the neck of the gallbladder was performed using blunt dissection with a [place] grasper and hook electrocautery. The cystic duct was identified, and a window was created behind it. The cystic artery was also identified and a window was created behind it. The critical view of safety was identified, visualizing the cystic duct running directly into the neck of the gallbladder, and the cystic artery running directly
[2022-07-28 16:55] LABS: Glucose Point of Care 178 mg/dl (65-105)
--- NOTE | 2022-07-28 18:27 | PM.IMPN ---
Progress Note: A&P Assessment and Plan (1) Acute pancreatitis: Code(s): K85.90 - Acute pancreatitis without necrosis or infection, unspecified Status: Acute Assessment and Plan: This is an 82-year-old female with a history of pancreatitis presenting to ED with abdominal pain.? Pt is going for laparoscopic cholecystectomy with intraoperative cholangiogram, possible open under surgery. (2) Diabetes: Code(s): E11.9 - Type 2 diabetes mellitus without complications Status: Acute Assessment and Plan: AccuCheck and SSI (3) Hypothyroidism: Code(s): E03.9 - Hypothyroidism, unspecified Status: Acute Assessment and Plan: will continue home regimen (4) Hypercholesterolemia: Code(s): E78.00 - Pure hypercholesterolemia, unspecified Status: Acute Assessment and Plan: will hold statin (5) Leukocytosis: Code(s): D72.829 - Elevated white blood cell count, unspecified Status: Acute Assessment and Plan: most likely secondary to acute pancreatitis. (6) Abnormal CT of the abdomen: Code(s): R93.5 - Abnormal findings on diagnostic imaging of other abdominal regions, including retroperitoneum Status: Acute Assessment and Plan: CT scan of the abdomen shows interstitial pancreatitis there is also concerning patient may have appendicitis patient is seen by surgery service and further recommendation to follow. Subjective Date/time seen: 07/28/22 18:27 82-year-old female with a history of pancreatitis presenting to ED with abdominal pain.?Pt going for surgery, laparoscopic cholecystectomy with intraoperative cholangiogram, possible open under surgery Exam Narrative: Pt is elderly frail LUNGS: normal respiratory effort ABD0: not distended Lower extremities: no edema SKIN: nonjaundiced Neuro: grossly intact. Objective Data Vital Signs Vital Signs: Vital Signs - 24 hr 07/27/22 20:43 07/27/22 20:00 07/28/22 06:00 Temperature 36.8 C 36.1 C L Pulse Rate 77 72 Respiratory Rate 16 17 Blood Pressure 165/65 H 154/62 H Pulse Oximetry 98 94 Oxygen Delivery Room Air Oxygen Flow Rate 07/28/22 08:00 07/28/22 08:31 07/28/22 13:59 Temperature 37.3 C Pulse Rate 74 72 Respiratory Rate 20 Blood Pressure 172/51 H Pulse Oximetry 98 Oxygen Delivery Room Air Room Air Oxygen Flow Rate 07/28/22 16:45 07/28/22 17:00 07/28/22 17:15 Temperature 36.7 C Pulse Rate 73 71 77 Respiratory Rate 14 18 16 Blood Pressure 117/47 L 138/53 L 138/59 L Pulse Oximetry 99 100 94 Oxygen Delivery Simple Face Mask Simple Face Mask Room Air Oxygen Flow Rate 10 10 07/28/22 17:30 07/28/22 17:45 Temperature Pulse Rate 76 75 Respiratory Rate 16 18 Blood Pressure 137/63 139/61 Pulse Oximetry 95 96 Oxygen Delivery Room Air Room Air Oxygen Flow Rate Intake/Output Intake/Output: Intake & Output 07/25/22 07/26/22 07/27/22 07/28/22 23:59 23:59 23:59 23:59 Intake Total 3660 2540 1250 Output Total 300 1700 1600 Balance 3360 840 -350 Meds/Results Medications: Active Medications Generic Name Dose Route Start Last Admin Trade Name Freq PRN Reason Stop Dose Admin Acetaminophen 650 mg 07/28/22 17:49 Acetaminophen 325 Mg Tablet PO Q6H PRN Mild Pain (1-3) or Fever Hydrocodone Bitart/Acetaminophen 1 tab 07/28/22 17:49 Hydrocodone/Acetaminophen (*Crx) 5-325 Mg Tablet PO Q4H PRN Pain Rated 4-6 Hydrocodone Bitart/Acetaminophen 1 tab 07/28/22 17:49 Hydrocodone/Acetaminophen (*Crx) 7.5-325 Mg Tablet PO Q4H PRN Pain Rated 7-10 Dextrose 12.5 gm 07/26/22 16:56 Dextrose 50% 25 Gm/50 Ml Syringe IV PUSH PRN PRN Hypoglycemia Protocol Enoxaparin Sodium 40 mg 07/29/22 09:00 Enoxaparin 40 Mg/0.4 Ml Syringe SUB-Q DAILY JOSE Gabapentin 100 mg 07/26/22 17:00 07/28/22 17:59 Gabapentin 100 Mg Capsule PO 100 mg BID SC
[2022-07-28] MEDS: HYDROcodone/acetaminophen (*CRX) 7.5-325 MG TABLET 1 TAB PO (21:36)
[2022-07-28] MEDS: hydrALAZINE HCL 25 MG TABLET PO (21:38)
[2022-07-28 22:34] LABS: Glucose Point of Care 196 mg/dl (65-105)
[2022-07-29] MEDS: HYDROcodone/acetaminophen (*CRX) 5-325 MG TABLET 1 TAB PO ×3 (03:31→15:17)
[2022-07-29 03:34] VITALS: BP 142/56; PULSE 65; RESP 19; TEMP 36.1; O2SAT 98
[2022-07-29] MEDS: LEVOTHYROXINE SODIUM 125 MCG TABLET PO (06:01)
[2022-07-29 06:27] LABS: Hematocrit 30.8 % (37.0-47.0); Hemoglobin 9.9 g/dL (12.0-15.0); Mean Corpuscular HGB Conc 32.1 g/dl (32-36); Mean Corpuscular Hemoglobin 30.5 pg (26-34); Mean Corpuscular Volume 94.8 fl (80-100); Mean Platelet Volume 9.7 fl (7.4-10.4); Platelet Count Result 269 k/mm3 (150-375); Red Blood Count 3.25 M/mm3 (4.2-5.4); Red Cell Distribution Width 13.2 % (11.5-14.5); White Blood Count 12.5 K/mm3 (4.5-10.0)
[2022-07-29 06:45] LABS: Alanine Aminotransferase 37 U/L (6-35); Albumin Level 3.3 g/dL (3.5-5.1); Alkaline Phosphatase 166 U/L (38-126); Anion Gap 10 mmol/L (8-16); Aspartate Amino Transferase 38 U/L (14-36); Bilirubin,Total 0.5 mg/dL (0.2-1.3); Blood Urea Nitrogen 9 mg/dL (7-17); Calcium 8.2 mg/dL (8.4-10.2); Carbon Dioxide 23 mmol/L (22-30); Chloride 103 mmol/L (98-107); Estimated CRCL calculation 50 ml/min; Estimated Glomerular Filt Rate > 60; Glucose 179 mg/dL (65-110); Lipase 33 U/L (23-300); Potassium 3.9 mmol/L (3.4-5.0); Sodium 136 mmol/L (137-145)
--- NOTE | 2022-07-29 07:32 | WPDANESPN ---
Anes - Prog Note Post-Op Date/Time: 07/29/22 07:32 Cardiovascular status: normal Respiratory status: normal Airway patency: baseline Mental status: baseline Post-Op hydration status: normal Vital Signs: Last Vital Signs Temp 36.1 C L 07/29/22 03:34 Pulse 65 07/29/22 03:34 Resp 19 07/29/22 03:34 BP 142/56 H 07/29/22 03:34 Pulse Ox 98 07/29/22 03:34 O2 Del Method Room Air 07/28/22 20:00 O2 Flow Rate 10 07/28/22 17:00 Pain Score (VAS): 2 I/O: Intake & Output 07/28/22 07/28/22 07/29/22 15:59 23:59 07:59 Intake Total 100 150 200 Output Total 1300 1000 Balance 100 -1150 -800 Laboratory Tests 07/29/22 05:58 07/29/22 05:58 07/28/22 07/28/22 07/28/22 07:00 07:00 08:17 WBC 13.2 H RBC 3.42 L Hgb 10.6 L Hct 32.5 L MCV 95.0 MCH 31.0 MCHC 32.6 RDW 13.6 Plt Count 266 MPV 9.5 Sodium 138 Potassium 3.8 Chloride 106 Carbon Dioxide 24 Anion Gap 8 BUN 6 L Creatinine 0.60 L Estim Creat Clear Calc 57 Estimated GFR > 60 Glucose 154 H POC Capillary Glucose 155 H Calcium 8.2 L Magnesium 2.0 Total Bilirubin 0.6 AST 37 H ALT 34 Alkaline Phosphatase 141 H Total Protein 6.0 L Albumin 3.4 L Lipase 299 Blood Type Antibody Screen 07/28/22 07/28/22 07/28/22 09:47 11:39 16:53 WBC RBC Hgb Hct MCV MCH MCHC RDW Plt Count MPV Sodium Potassium Chloride Carbon Dioxide Anion Gap BUN Creatinine Estim Creat Clear Calc Estimated GFR Glucose POC Capillary Glucose 153 H 178 H Calcium Magnesium Total Bilirubin AST ALT Alkaline Phosphatase Total Protein Albumin Lipase Blood Type O Positive Antibody Screen Negative 07/28/22 07/29/22 07/29/22 21:46 05:58 05:58 WBC 12.5 H RBC 3.25 L Hgb 9.9 L Hct 30.8 L MCV 94.8 MCH 30.5 MCHC 32.1 RDW 13.2 Plt Count 269 MPV 9.7 Sodium 136 L Potassium 3.9 Chloride 103 Carbon Dioxide 23 Anion Gap 10 BUN 9 Creatinine 0.70 Estim Creat Clear Calc 50 Estimated GFR > 60 Glucose 179 H POC Capillary Glucose 196 H Calcium 8.2 L Magnesium 2.0 Total Bilirubin 0.5 AST 38 H ALT 37 H Alkaline Phosphatase 166 H Total Protein 6.0 L Albumin 3.3 L Lipase 33 Blood Type Antibody Screen Post-procedural complaints: none Patient Feedback: Patient satisfied with anesthetic care.
[2022-07-29 07:34] VITALS: BP 143/64; PULSE 66; RESP 18; TEMP 36.5; O2SAT 98
[2022-07-29 08:00] VITALS: O2SAT 98
[2022-07-29 08:00] LABS: Glucose Point of Care 162 mg/dl (65-105)
[2022-07-29 09:12] VITALS: PULSE 68
[2022-07-29] MEDS: NEBIVOLOL HCL 5 MG TABLET 10 MG PO (09:12)
[2022-07-29] MEDS: GABAPENTIN 100 MG CAPSULE PO ×2 (09:12→17:07)
[2022-07-29] MEDS: hydrALAZINE HCL 25 MG TABLET PO (09:13)
[2022-07-29] MEDS: VALSARTAN 160 MG TABLET 320 MG PO (09:13)
[2022-07-29] MEDS: LORATADINE 10 MG TABLET PO (09:13)
[2022-07-29] MEDS: ENOXAPARIN 40 MG/0.4 ML SYRINGE SUB-Q (09:13)
[2022-07-29 11:33] LABS: Glucose Point of Care 183 mg/dl (65-105)
[2022-07-29 11:34] VITALS: BP 149/56; PULSE 61; RESP 22; TEMP 36.6; O2SAT 99
--- NOTE | 2022-07-29 13:10 | PM.PNGS ---
Progress Note: A&P Assessment and Plan (1) Cholelithiasis: Code(s): K80.20 - Calculus of gallbladder without cholecystitis without obstruction Status: Acute Assessment and Plan: Feeling better. Tolerating diet. OK to discharge from surgical standpoint. Follow up in 2 weeks. (2) Acute pancreatitis: Code(s): K85.90 - Acute pancreatitis without necrosis or infection, unspecified Status: Acute Subjective Subjective Date/Time Seen: 07/29/22 13:10 Interval history: Feeling better. Tolerating diet. Pain controlled. Exam GI: GI Palp: Yes Soft to palpation and Yes Tenderness to palpation present (GI) (incisional) Objective Data Vital Signs Vital Signs: Vital Signs - 24 hr 07/28/22 13:59 07/28/22 16:45 07/28/22 17:00 Temperature 37.3 C 36.7 C Pulse Rate 72 73 71 Respiratory Rate 20 14 18 Blood Pressure 172/51 H 117/47 L 138/53 L Pulse Oximetry 98 99 100 Oxygen Delivery Room Air Simple Face Mask Simple Face Mask Oxygen Flow Rate 10 10 07/28/22 17:15 07/28/22 17:30 07/28/22 17:45 Temperature Pulse Rate 77 76 75 Respiratory Rate 16 16 18 Blood Pressure 138/59 L 137/63 139/61 Pulse Oximetry 94 95 96 Oxygen Delivery Room Air Room Air Room Air Oxygen Flow Rate 07/28/22 18:06 07/28/22 18:21 07/28/22 18:51 Temperature 36.6 C 36.9 C 36.4 C L Pulse Rate 67 69 68 Respiratory Rate 16 16 16 Blood Pressure 120/90 138/56 L 148/62 H Pulse Oximetry 97 95 96 Oxygen Delivery Oxygen Flow Rate 07/28/22 19:34 07/28/22 23:34 07/28/22 20:00 Temperature 36.7 C 36.1 C L Pulse Rate 76 71 Respiratory Rate 17 18 Blood Pressure 155/63 H 137/59 L Pulse Oximetry 97 97 Oxygen Delivery Room Air Oxygen Flow Rate 07/29/22 03:34 07/29/22 07:34 07/29/22 09:12 Temperature 36.1 C L 36.5 C Pulse Rate 65 66 68 Respiratory Rate 19 18 Blood Pressure 142/56 H 143/64 H Pulse Oximetry 98 98 Oxygen Delivery Oxygen Flow Rate 07/29/22 08:00 07/29/22 11:34 Temperature 36.6 C Pulse Rate 61 Respiratory Rate 22 H Blood Pressure 149/56 H Pulse Oximetry 98 99 Oxygen Delivery Room Air Oxygen Flow Rate Intake/Output Intake/Output: Intake & Output 07/26/22 07/27/22 07/28/22 07/29/22 23:59 23:59 23:59 23:59 Intake Total 3660 2540 1300 250 Output Total 300 1700 1600 1000 Balance 3360 840 -300 -750 Meds/Results Medications: Active Medications Generic Name Dose Route Start Last Admin Trade Name Freq PRN Reason Stop Dose Admin Acetaminophen 650 mg 07/28/22 17:49 Acetaminophen 325 Mg Tablet PO Q6H PRN Mild Pain (1-3) or Fever Hydrocodone Bitart/Acetaminophen 1 tab 07/28/22 17:49 07/29/22 09:25 Hydrocodone/Acetaminophen (*Crx) 5-325 Mg Tablet PO 1 tab Q4H PRN Administration Pain Rated 4-6 Hydrocodone Bitart/Acetaminophen 1 tab 07/28/22 17:49 07/28/22 21:36 Hydrocodone/Acetaminophen (*Crx) 7.5-325 Mg Tablet PO 1 tab Q4H PRN Administration Pain Rated 7-10 Dextrose 12.5 gm 07/26/22 16:56 Dextrose 50% 25 Gm/50 Ml Syringe IV PUSH PRN PRN Hypoglycemia Protocol Enoxaparin Sodium 40 mg 07/29/22 09:00 07/29/22 09:13 Enoxaparin 40 Mg/0.4 Ml Syringe SUB-Q 40 mg DAILY JOSE Administration Gabapentin 100 mg 07/26/22 17:00 07/29/22 09:12 Gabapentin 100 Mg Capsule PO 100 mg BID JOSE Administration Glucagon 1 mg 07/26/22 16:56 Glucagon For Inj 1 Mg Vial IM PRN PRN Hypoglycemia Protocol Glucose 15 gm 07/26/22 16:56 Glucose Oral Gel 15 Gm Of Glucse In 37.5 Gm Tube PO PRN PRN Hypoglycemia Protocol Hydralazine HCl 25 mg 07/26/22 21:00 07/29/22 09:13 Hydralazine Hcl 25 Mg Tablet PO 25 mg Q12HR JOSE Administration Piperacillin/Tazobactam/Dextrose 3.375 gm in 50 mls @ 100 mls/hr 07/26/22 15:00 07/29/22 09:43 Zosyn 3.375 Gm/D5w 50ml Pm IVPB Infused Q6H JOSE Infusion Dextrose 1,000 mls @ 100 mls/hr 07/26/22
--- NOTE | 2022-07-29 14:15 | PM.DS ---
DS: Admitting Diagnosis Discharge Date 07/29/2022 Admitting Diagnosis abdominal pain DS: Discharge Diagnosis Discharge Diagnosis (1) Acute pancreatitis: Code(s): K85.90 - Acute pancreatitis without necrosis or infection, unspecified Status: Acute (2) Diabetes: Code(s): E11.9 - Type 2 diabetes mellitus without complications Status: Acute (3) Hypothyroidism: Code(s): E03.9 - Hypothyroidism, unspecified Status: Acute (4) Hypercholesterolemia: Code(s): E78.00 - Pure hypercholesterolemia, unspecified Status: Acute (5) Leukocytosis: Code(s): D72.829 - Elevated white blood cell count, unspecified Status: Acute (6) Abnormal CT of the abdomen: Code(s): R93.5 - Abnormal findings on diagnostic imaging of other abdominal regions, including retroperitoneum Status: Acute DS: Summary Hospital Course Reason for hospitalization: This is an 82-year-old female with a history of pancreatitis presenting to ED with abdominal pain.? Pain started acutely at 11:00 p.m. this evening while she was watching TV.? It is a sharp epigastric pain that is nonradiating.? It is 10 on 10 in intensity.? It is constant.? She relates this to previous episodes of pancreatitis.? There were no exacerbating or alleviating factors.? She has had multiple episodes of nausea and vomiting.? She denies fever, chills, chest pain, difficulty breathing. ?patient with history of recurrent abdominal pain presented emergency did is found to have elevated lipase of 38,000 and white count of 19,000,? to further evaluate patient had a CT scan abdomen? it showed1. Acute interstitial pancreatitis. 2. Appendiceal diameter of 8 mm, which is indeterminate for acute appendicitis.? will consult surgery service and discussed recommended to further evaluate will do the abdominal ultrasound which showed cholelithiasis without acute cholecystitis and acute pancreatitis, we have started the patient on Zosyn, patient be seen by surgery service and GI service and further recommendation to follow. ?patient admitted as inpatient for acute interstitial pancreatitis, elevated leukocytosis and lipase patient will stay in the hospital for 2 midnights Hospital Course: # acute pancreatitis: IV fluid . Previous history of pancreatitis in the past. Lipase level of 38,000. 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 This was complicated by injury to bowel during the procedure and post ERCP pancreatitis. For another ERCP and 2018 for removal of her stents and extraction of stone material. No alcohol use normal lipids. This pancreatitis suspected to be biliary of the abdomen ultrasound shows cholelithiasis. General surgery was consulted and is status post laparoscopic cholecystectomy. A # status post laparoscopic cholecystectomy 07/28/2022 # diabetes mellitus type 2 Accu-Chek and SSI oral hypoglycemic agent discharge has previously taken. # hypothyroidism # hyperlipidemia # hypertension # DVT prophylaxis: Lovenox # full code Time Spent with Patient Time attestation: Total time spent providing and/or coordinating discharge services: 45 minutes Exam Narrative: Pt is elderly frail not in acute distress LUNGS: normal respiratory effort, clear to auscultation bilaterally ABD0: not distended, soft, non tender Lower extremities: no edema, no cyanosis or clubbing SKIN: nonjaundiced, no rash Neuro: grossly intact. alert and oriented x3 DS: Data Data Completed and Pending Pending studies at discharge: Pending at discharge 07/28/22 16:23 Surgical [PTH] Routine Labs on day of discharge: Labs from last 24 hours 07/29/22 07/29/22 07/29/22 11:21 07:49 05:58 WBC RBC Hgb Hct MCV MCH MCHC RDW Plt Count MPV
[2022-07-29 15:34] VITALS: BP 131/61; PULSE 54; RESP 18; TEMP 36.2; O2SAT 99
[2022-07-29 16:40] LABS: Glucose Point of Care 166 mg/dl (65-105)
== END 2022-07-29 17:40 | disposition home or self-care (01) | DRG 419 ==
LOC: ANHED 08:03 → ANH3MEDSUR 09:40
PROVIDERS: Emergency Medicine; Surgery; Admitting Provider Family Medicine; Emergency Provider Emergency Medicine; Visit Provider Internal Medicine
PROC: 0FT44ZZ Resection of Gallbladder, Percutaneous Endoscopic Approach (ICD-10-PCS; CPT 47562; principal; 2022-07-28 15:00)
DX: K85.10 Biliary acute pancreatitis without necrosis or infection (principal); K80.20 Calculus of gallbladder without cholecystitis without obstruction; E11.9 Type 2 diabetes mellitus without complications; E89.0 Postprocedural hypothyroidism; E78.00 Pure hypercholesterolemia, unspecified; E78.5 Hyperlipidemia, unspecified; I10 Essential (primary) hypertension; R93.5 Abnormal findings on diagnostic imaging of other abdominal regions, including retroperitoneum; Z20.822 Contact with and (suspected) exposure to COVID-19; Z79.84 Long term (current) use of oral hypoglycemic drugs; Z79.899 Other long term (current) drug therapy; Z86.73 Personal history of transient ischemic attack (TIA), and cerebral infarction without residual deficits
CPT/HCPCS: 36415; 71045; 74177; 74300; 76705; 80053; 81001; 82948; 83036; 83690; 83735; 84484; 85025; 85027; 86850; 86900; 86901; 88304; 93005; 96361; 96374; 96376; 99285; A9270; C9803; J0131; J1170; J1650; J2405; J2543; J2704; J3010; J7030; J7120; Q9966; Q9967; U0003; U0005

== ENCOUNTER 2023-11-01 07:03 | Emergency (ER) | payer MEDICARE, SELFPAY ==
--- NOTE | ~2023-11-01 | CT_ITS ---
EXAMINATION: CT abdomen pelvis w con DATE: 11/01/2023 08:17 INDICATION: Right upper quadrant pain TECHNIQUE: Computed tomography (CT) of the abdomen and pelvis was performed with 100 cc Omnipaque 350 intravenous contrast. The dose-length product was 271.47 mGy-cm. Automated exposure control and iter ative reconstruction technique were employed. COMPARISON: CT dated 07/26/2022 FINDINGS: Lung bases are unremarkable. Heart size normal. No significant pleural or pericardial effus ion. Mild thickening of the distal esophagus, suspicious for esophagitis. Status post cholecystectomy with pneumobilia. The liver, spleen, pancreas, adrenal glands and right kidney are unremarkable. Sma ll left renal cysts. Nonobstructive bowel gas pattern. No abnormal pelvic masses or fluid collections . Colonic diverticulosis without evidence for diverticulitis. There are lag screws transfixing the le ft femoral neck. Moderate lumbar spondylosis. IMPRESSION: 1. Mild thickening of the distal esophagus, suspicious for esophagitis. Reviewed, dictated and finalized at location L. ITY CONTROL CHECKER
--- NOTE | ~2023-11-01 | XR_ITS ---
XR abdomen/kub 1V 11/01/2023 08:29 Indication: Abdomen pain Procedure: KUB Comparison: CT dated 11/01/2023 and upper GI dated 02/23/2007 Findings: Bowel gas pattern nonobstructive. There is residual contrast in the kidneys and renal colle cting systems. There are pelvic phleboliths. Moderate lumbar spondylosis. There is osteoarthritis of the hips. There are 3 lag screws transfixing the left femoral neck. Impression: 1: No acute abdominal abnormality. Reviewed, dictated and finalized at location L. LOSS PREVENTION MANAGER Impression: 1: No acute abdominal abnormality.
[2023-11-01 07:06] VITALS: BP 183/61; PULSE 74; RESP 16; TEMP 36.6; O2SAT 99
--- NOTE | 2023-11-01 07:15 | ED.ABDPAIN ---
HPI - Abdominal Pain General Chief Complaint: Abdominal Pain Stated Complaint: abdominal pain Time Seen by Provider: 11/01/23 07:15 Source: patient and family Mode of arrival: ambulatory Limitations: no limitations History of Present Illness HPI narrative: 83 years old white female in came to the emergency room from home by private car complaining of vomiting once yesterday with epigastric pain. Patient was not able to eat since yesterday morning because of the epigastric pain. History of similar symptoms secondary to pancreatitis. She denies any fever, chills or alcohol use. Related Data Home Medications Medication Instructions Recorded Confirmed gabapentin 100 mg capsule 100 mg PO BID 05/09/20 10/17/23 glimepiride 1 mg tablet 1 mg PO QPM 05/09/20 10/17/23 glimepiride 2 mg tablet 2 mg PO DAILY 05/09/20 10/17/23 levothyroxine 112 mcg tablet 125 mcg PO DAILY 05/09/20 10/17/23 (Synthroid) valsartan 320 mg tablet 320 mg PO DAILY 05/09/20 10/17/23 cetirizine 10 mg capsule (All Day 10 mg PO DAILY 07/09/21 10/17/23 Allergy (cetirizine)) diclofenac epolamine 1.3 % 1 patch transdermal BID PRN Back 07/09/21 10/17/23 transdermal 12 hour patch Pain carisoprodol 350 mg tablet 350 mg PO BID 07/26/22 10/17/23 hydralazine 25 mg tablet 25 mg PO BID 07/26/22 10/17/23 nebivolol 10 mg tablet 10 mg PO DAILY 07/26/22 10/17/23 Allergies Allergy/AdvReac Type Severity Reaction Status Date / Time pentazocine Allergy Severe Unconscious Verified 11/01/23 07:57 codeine AdvReac Intermediate SEVERE Verified 11/01/23 07:57 NAUSEA/VOMITING NSAIDS (Non-Steroidal AdvReac Intermediate NAUSEA AND Verified 11/01/23 07:57 Anti-Inflamma GASTRIC PAIN meperidine AdvReac Mild Nausea Verified 11/01/23 07:57 Review of Systems Review of Systems: All systems reviewed & are unremarkable except as noted in HPI and below PMFSH Past Medical History Medical History CVA (cerebral vascular accident) (~2013) Diabetes Diverticulitis Encounter for Papanicolaou smear for cervical cancer screening Hypercholesterolemia Hypertension Hypothyroidism Injury of left shoulder serratus anterior strain January 2023 Pancreatitis Sacral insufficiency fracture Screening mammogram, encounter for Surgical History Surgical History History of arthroscopy of right knee History of ERCP (12/23/16) x2 with stents placed and subsequently removed, 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 History of gynecological procedure Endometrial ablation 20 yrs ago History of hysteroscopy (07/08/17) hysteroscopy D&C - polypectomy; postmenopausal bleeding , endometrial hypertrophy, endometrial polyp- Benign History of hysteroscopy D&C x 3 in 40's History of orthopedic surgery Foot operation X 2 14-15 yrs ago History of orthopedic surgery operation on thumb (tindenitis) History of thyroidectomy History of tonsillectomy Hx laparoscopic cholecystectomy Lap Deya with IOC on 07/28/22 Subcapital fracture of neck of left femur pinning in situ July 10, 2021 Family History Family History Father Cerebrovascular accident Heart disease Hypertension Mother Osteoporosis Grandparent Carcinoma of colon maternal grandmother Sibling , MVA No problems noted. Social History Social History Smoking status: Never smoker Second hand tobacco smoke exposure: No Alcohol intake: never Substance use: never Substance use type: does not use Lack of Transportation: No Lack of Food: Never True Current Housing: I Have Housing Concerned About Future Housing: No Difficulty Paying Gas/Electric Bills: No Difficulty Paying for Meds: No Currently Unemployed: No Education: High School Diploma/GED Difficulty w/ Childcare or Family Care: No
[2023-11-01 07:38] LABS: Basophils Absolute Auto 0.1 K/mm3 (0.0-0.1); Basophils Percent Auto 0.5 % (0.2-1.2); Eosinophils Absolute Auto 0.2 K/mm3 (0-0.3); Eosinophils Percent Auto 1.3 % (0-4.4); Hematocrit 40.5 % (37.0-47.0); Hemoglobin 12.8 g/dL (12.0-15.0); Immature Granulocyte Absolute 0.03 K/mm3 (0.00-0.031); Immature Granulocyte Percent A 0.3 % (0-0.5); Lymphocytes Percent Auto 13.3 % (18.3-44.2); Mean Corpuscular HGB Conc 31.6 g/dl (32-36); Mean Corpuscular Hemoglobin 30.7 pg (26-34); Mean Corpuscular Volume 97.1 fl (80-100); Mean Platelet Volume 8.9 fl (7.4-10.4); Monocytes Absolute Auto 1.1 K/mm3 (0.1-0.6); Monocytes Percent Auto 9.6 % (2.6-8.5); Neutrophils Absolute Auto 8.5 K/mm3 (1.3-6.7); Platelet Count Result 316 k/mm3 (150-375); Red Blood Count 4.17 M/mm3 (4.2-5.4); Red Cell Distribution Width 12.7 % (11.5-14.5); White Blood Count 11.3 K/mm3 (4.5-10.0)
[2023-11-01 07:50] LABS: Alanine Aminotransferase 76 U/L (6-35); Albumin Level 4.7 g/dL (3.5-5.1); Alkaline Phosphatase 133 U/L (38-126); Anion Gap 11 mmol/L (8-16); Aspartate Amino Transferase 73 U/L (14-36); Bilirubin,Total 0.7 mg/dL (0.2-1.3); Blood Urea Nitrogen 16 mg/dL (7-17); Calcium 9.5 mg/dL (8.4-10.2); Carbon Dioxide 26 mmol/L (22-30); Chloride 102 mmol/L (98-107); Estimated CRCL calculation 49 ml/min; Estimated Glomerular Filt Rate > 60; Glucose 196 mg/dL (65-110); Lipase 73 U/L (23-300); Potassium 4.2 mmol/L (3.4-5.0); Sodium 139 mmol/L (137-145)
[2023-11-01] MEDS: SODIUM CHLORIDE 0.9% IV 1,000 ML 999 ML IV CONT (07:50)
[2023-11-01] MEDS: ONDANSETRON INJ 4 MG/2 ML VIAL IV PUSH (07:51)
[2023-11-01] MEDS: HYDROmorphone HCL INJ (*CRX) 1 MG/ML SYR 0.5 MG IV PUSH (07:51)
[2023-11-01 08:03] LABS: Appearance Urine Clear (Clear); Bacteria Urine None Seen /hpf; Bilirubin Urine Negative (Negative); Blood Urine Negative (Negative); Color Urine Dark Yellow (Yellow); Glucose Urine UA Negative (Negative); Hyaline Casts Urine Present /lpf; Ketones Urine Trace mg/dL (Negative); Leukocyte Esterase Ur Negative LEU/UL (Negative); Need Manual Microscopic Reviewed; Nitrate Urine Negative (Negative); Protein Urine 1+ mg/dL (Negative); RBC Urine 0-2 /hpf (0-2); Specific Grav Ur 1.023 (1.001-1.035); Squamous Epithelial Cell Urine Few /hpf (Few); WBC Urine 0-5 /hpf
[2023-11-01 08:09] LABS: Add Urine Microscopic? YES
[2023-11-01] MEDS: BELLADONNA ALK/PHENOB ELIX 10 ML, MAG HYDROX/ALUMINUM HYD/SIMETH 30 ML, LIDOCAINE HCL 2... PO (09:04)
[2023-11-01 09:10] VITALS: BP 197/95; PULSE 80; RESP 16; O2SAT 98
== END 2023-11-01 09:10 | disposition home or self-care (01) ==
PROVIDERS: Emergency Provider Emergency Medicine
DX: K20.90 Esophagitis, unspecified without bleeding (principal); E11.9 Type 2 diabetes mellitus without complications; I10 Essential (primary) hypertension; E78.00 Pure hypercholesterolemia, unspecified; E03.9 Hypothyroidism, unspecified; Z86.73 Personal history of transient ischemic attack (TIA), and cerebral infarction without residual deficits; Z79.84 Long term (current) use of oral hypoglycemic drugs
CPT/HCPCS: 36415; 74018; 74177; 80053; 81001; 83690; 85025; 96361; 96374; 96375; 99284; A9270; J1170; J2405; J7030; Q9967

== ENCOUNTER 2024-06-11 16:30 | Outpatient (CLI) | payer MEDICARE, SELFPAY ==
--- NOTE | ~2024-06-11 | CT_ITS ---
EXAMINATION: CT brain wo con DATE: 06/11/2024 17:04 INDICATION: Closed injury of brain . TECHNIQUE: Computed tomography (CT) of the head was performed without intravenous contrast. The mA wa s adjusted according to patient size. Iterative reconstruction technique was employed. The dose-lengt h product was 605.33 mGy-cm. COMPARISON: 03/12/2005. FINDINGS: No acute intracranial hemorrhage or extra-axial fluid collection. No hydrocephalus, mass, or herniation. No acute ischemic infarct. Unremarkable dural venous sinus attenuation. No acute osseous abnormality. The aerated spaces are clear. Mild atrophy and chronic white matter change. Atherosclerotic intracranial calcification. Bilateral l ens replacements. Bilateral basal ganglia calcification. IMPRESSION: No acute intracranial process. Reviewed, dictated and finalized at location K.
== END 2024-06-11 16:31 | disposition home or self-care (01) ==
LOC: ANHIMG 16:30
PROVIDERS: Visit Provider Internal Medicine
DX: S09.90XA Unspecified injury of head, initial encounter (principal); X58.XXXA Exposure to other specified factors, initial encounter
CPT/HCPCS: 70450

== ENCOUNTER 2024-09-27 13:19 | Outpatient (CLI) | payer MEDICARE, SELFPAY ==
--- NOTE | ~2024-09-27 | MR_ITS ---
MRI of the lumbar spine Clinical History: Recurrent uropathy Technique: Axial T2-weighted images, and sagittal T1-weighted, T2-weighted, and T2 fat-sat images wer e acquired. Findings: There is no acute fracture of the lumbar spine. Stable osseous alignment from prior exam. T here are Modic type I changes about the L5-S1 disc space due to underlying degenerative disc disease. At L1-L2, there is advanced degenerative disc narrowing. There is minimal disc bulge with mild facet arthropathy. No central canal stenosis. There is mild to moderate bilateral neural foraminal narrowin g. At L2-L3, there is no disc bulge or herniation. No spinal canal stenosis or neural foraminal narrowin g. At L3-L4, there is no disc bulge or herniation. There is mild facet arthropathy. No central canal joe nosis or definite neural foraminal narrowing. At L4-L5, there is mild degenerative disc narrowing. There is diffuse disc bulge with advanced facet arthropathy. No griselda central canal stenosis. There is moderate right neural foraminal narrowing, and minimal left neural foraminal narrowing. At L5-S1, there is advanced degenerative disc narrowing. There is mild disc bulge with advanced facet arthropathy. No central canal stenosis. There is severe bilateral neural foraminal narrowing, right worse than left. Paravertebral soft tissues are unremarkable. Impression: Moderate degenerative spondylosis, as above, with multilevel neural foraminal narrowing. Reviewed, dictated and finalized at [facility]. CUTTER Impression: Moderate degenerative spondylosis, as above, with multilevel neural foraminal n arrowing.
== END 2024-09-27 13:20 | disposition home or self-care (01) ==
PROVIDERS: PCP Internal Medicine; Visit Provider Orthopaedic Surgery
DX: M47.26 Other spondylosis with radiculopathy, lumbar region (principal)
CPT/HCPCS: 72148

== ENCOUNTER 2025-02-08 22:47 | Inpatient (IN) | payer MEDICARE, SELFPAY ==
--- NOTE | ~2025-02-08 | XR_ITS ---
EXAMINATION: XR chest 1V portable DATE: 02/09/2025 00:10 INDICATION: Upper respiratory tract infection TECHNIQUE: frontal view of the chest was obtained. COMPARISON: Chest radiograph dated 07/26/22 FINDINGS: New mild reticular opacities at the lateral left lung base which could represent mild pulmonary edema , atelectasis or pneumonia. Right lung remains clear. No pleural effusion or pneumothorax. Heart size is normal. IMPRESSION: 1. Mild reticular opacities at the left lung base which could represent mild pulmonary edema, atelect asis or pneumonia. Reviewed, dictated and finalized at location A. IMPRESSION: 1. Mild reticular opacities at the left lung base which could represent mild pu lmonary edema, atelectasis or pneumonia.
--- NOTE | ~2025-02-08 | XR_ITS ---
HISTORY: pain, NKI COMPARISON: None TECHNIQUE: 2 views of the left shoulder were performed FINDINGS: No acute fracture. The glenohumeral joint space is maintained. Narrowing of the acromioclavicular joint space is identified with osteophyte formation. The visualized portion of the adjacent left lung is clear. The humeral head is well seated within the glenoid fossa. IMPRESSION: Degenerative disease, without acute fracture or anterior dislocation. Reviewed, dictated and finalized at location A. IMPRESSION: Degenerative disease, without acute fracture or anterior dislocati on.
[2025-02-08 22:49] VITALS: BP 123/53; PULSE 80; RESP 14; TEMP 36.6; O2SAT 100
--- OUTSIDE RECORDS SUMMARY | 2025-02-08 22:49 | XMS_ITS | Data Portability ---
Author Organization [facility] [employer], Main Office Address [address] [place] [address] Care Team Providers Care Web Marketing Assistant Name Role Phone SNEHA GALLEGOS Primary Care Provider [phone] SNEHA GALLEGOS Referring Provider [phone] Assessment Encounter Date Assessment Date Assessment LastModified by Organization Details LastModified Time 08/16/2024 08/16/2024 The patient has a subacute resolving hematoma that is now about 2-month-old after a fall on some stairs. This is localized to the left anterior tibia. We talked about this today she was wondering about trying to drain it I have told her we would be unlikely to make any difference in it as it appears to be a clotted hematoma and it would be unlikely that it would be able to get any fluid out. I have advised her to use heat and massage try to help stimulate some circulation to the area and also use a compression stocking to help apply some pressure over the area to see if we can decompress it somewhat with time. I have advised her that she may end up with a permanent bump there as the hematoma scars in. Unfortunately she is on blood thinners and had a significant bleed after the fall. There is still time for it to remodel and get smaller with time she is going to try the above measures. For now I will see her back as needed if she has any further problems difficulties or questions she is instructed to call she voiced understanding agrees with the above plan. [email or web address] Not available 08/16/2024 11:45:46 Plan of Treatment Reminders Order Date Submit Date Provider Last Modified By Organization Details Last Modified Time Details Appointments Medicare Wellness 15 2024 08:00A Jennifer Springer MD Not available Not available Not available Lab vitamin D, 25-hydrox y, total, serum 2024 025 [email or web address] [facility] (Lab), [address] [place], [address], 02/05/2025 09:33:28 glycohemo globin, total, blood 2024 025 [facility] (Lab), [address] [place], [address], 01/24/2025 12:34:25 CMP, serum or plasma 2024 025 [facility] (Lab), [address] [place], [address], 01/24/2025 11:51:43 lipid panel, serum 2024 025 [facility] (Lab), [address] [place], [address], 01/24/2025 11:51:44 microalbu min, urine 2024 025 [facility] (Lab), [address] [place], [address], 01/24/2025 11:51:44 CBC w/ auto diff 2024 025 [facility] (Lab), [address] [place], [address], 01/24/2025 11:51:43 TSH, serum or plasma 2024 025 [facility] (Lab), [address] [place], [address], 01/24/2025 11:51:44 glycohemo globin, total, blood [email or web address] [place] [address] (Lab), [address] [place], [address], 12/11/2024 15:17:47 CMP, serum or plasma 2023 024 [email or web address] 2 [facility] (Lab), [address] [place], [address], 12/11/2024 15:17:57 lipid panel, serum 2023 024 [email or web address] 2 [facility] (Lab), [address] [place], [address], 12/11/2024 15:18:08 TSH, serum or plasma 2023 024 [email or web address] 2 [facility] (Lab), [address] [place], [address], 12/11/2024 15:18:18 Referral orthopedi c spine surgeon referral - Please call patient to schedule. 2023 024 [email or web address] 2 Greg Cabrera MD, [facility] [address], [address], 01/01/2025 10:04:06 orthopedi c surgeon referral - pt would like to be seen at [facility] if possiblel arge hematoma on left ndiaye area not healing after 2 months 2023 024 [email or web address] [facility], [address], [place], [address], 10/12/2024 12:12:45 Procedures None recorded. Surgeries None recorded. Imaging XR, tibia + fibula, 2 view 2023 024 [facility] [place], [address], [place], [address], 08/16/2024 13:08:23 CT, head + brain, w/o contrast - No Auth Required 2023 024 [facility] (Imaging), [address], [place], [address], 06/12/2024 18:47:19 Medication Orders None recorded. Patient TargetsNo targets recorded. Patient Instructions Encounter Date Encounter Id Patient Instructions Last Modified By Organization Details Last Modified Time 08/30/2024 [id number] dementia rating scale-2* Not available 08/30/2024 17:08:54 alcohol misuse* Not available 08/30/2024 17:08:53 depression screening* Not available 08/30/2024 17:08:54 multi-dimensiona l health assessment questionnaire* Not available 08/30/2024 17:08:53 advance directiv es: care instructions Not available 08/30/2024 17:08:54 advance care planning: care instructions [email or web address] Not available 08/30/2024 17:08:54 [place] [email or web address] Not available 08/30/2024 17:08:54 Personalized a lt Plan and Screening Recommendations Advance Directives - Do you have one? No You have indicated that you are capable of preparing your advance care directive Advance Directives - Do we have your advance directive on file in your health record? No, please bring in a copy at your earliest convenience Primary Prevention/Interven tion (prevents or decreases the chance of common diseases from occurring) Smoking Risk: Non Smoker Alcohol Misuse Screening: Negative Weight: Appropriate Physical activity: Appropriate physical activity Nutrition: Good Average Fall Risk (screened today): Low Vaccines Pneumococcal: Ordered Recommended today Recommended today, but you have declined Influenza: Ordered Recommended today Recommended today, but you have declined Chronic Disease Risks Stroke: Low Risk Intermediate Risk I have no recommendations Act jahaira diagnosis, Continue current treatment plan Heart Attack: Low risk Intermediate Risk I have no recommendations Act jahaira diagnosis, Continue current treatment plan Clogging of the Arteries: Low risk Intermediate Risk I have no recommendations Act jahaira diagnosis, Continue current treatment plan Diabetes: Low Risk Intermediate Risk Active diagnosis, Continue current treatment plan Secondary Prevention/Interven tion (detects treatable diseases before they may cause symptoms, disability, or ) Breast Cancer Screening with mammogram: No screening necessary Cervical/Uterine/Ov ramin Cancer Screening: No screening necessary Osteoporosis Screening: No screening necessary Date Screening Last Performed: 03/26/2024 Colon Cancer Screening: No screening necessary Date Screening Last Performed: Eye Disease Screening: No Eye exam necessary Dementia Risk: Low I have no recommendations Depression Screening: Negative [email or web address] Not available 08/30/2024 15:10:09 Reason for Referral Orthopedic Surgeon Referral for Traumatic hematoma [facility] hemat[facility] on left ndiaye area not healing after 2 months Referring Physician: Grace Clayton, Family Medicine, Encounter Date: 08/10/2024 Orthopedic Spine Surgeon Ref erral for Low back pain Please call patient to schedule. Referring Physician: Magdiel Springer, Internal Medicine, Encounter Date: 08/30/2024 Results Created Date Observation Date Name Description Value Unit Range Abnormal Flag Note LastModifiedBy Organization Detail LastModifiedTime 06/12/2006/11/2024 CT, head + brain , w/o contr ast No observ ation record ed. [facility] (Imaging) [address], [place], [address], 06/12/2024 18:47:19 08/16/20 XR, tibia + fibul a, 2 view No observ ation record ed. [email or web address] [facility] [address], [place], [address], 08/16/2024 11:44:04 Result Notes None recorded. Problems Name Problem SNOMED Code Status Onset Date Resolution Date Notes Provider Name and Address Organization Details Recorded Time Abdominal pain 03984907 Completed 05/02/2024 IRWIN [place], [place] - [email or web address] 12:14:57 Osteoarth ritis of knee 039549428 Active IRWIN [place] [employer] 12:14:16 Adnexal tendernes s 351664661 Completed 05/02/2024 IRWIN [place] [employer] 12:14:45 Right lower quadrant pain 107555234 Completed 05/02/2024 Rocio Stamarilebea n, RMA null, [place] - [facility] 4 12:14:08 Knee pain Completed 05/02/2024 Rocio Stamarilebea n, RMA null, [place] [facility] 4 12:14:33 Osteoarth ritis 803077107 Active Knees Rocio Stufflebea n, RMA null[place] [facility] 4 12:14:30 Essential hypertens ion 42072771 Active 2023 Rocio Stufflebea n, RMA null[place] [facility] 4 12:14:38 Hypothyro idism 64838263 Active 2023 Rocio Stufflebea n, RMA null[place] [facility] 4 12:14:34 Low back pain 168568029 Completed 202305/02/2024 Rocio Stufflebea n, RMA null[place] [facility] 4 12:15:16 Pain in left foot 88761907179 9107 Completed 202305/02/2024 Rocio Stufflebea n, RMA null, [place] [facility] 4 12:15:16 Diabetes mellitus 26032831 Active 2023 Rocio Stufflebea n, RMA null[place] [facility] 4 12:14:41 Pain in left foot 63397809705 9107 Active 2023 Rocio Stufflebea n, RMA null, [place] [facility] 4 12:15:15 Low back pain 207921923 Active 2023 Rocio Stufflebea n, RMA null[place] [facility] 4 12:15:15 Dizziness 604768130 Active 2023 Magdiel Springer MD [address] [place] [address], [address] , [facility] 4 16:36:58 Closed injury of head 68219376155 6 Active 2023 Magdiel Springer MD [address], [place], [address] , [facility] 4 16:38:03 Traumatic hematoma 986588359 Active 2023 Grace Clayton NP [address], [place], [address] , [facility] 4 16:13:15 Pain of left lower leg 43891158348 9101 Active 2023 Sheeba Acosta CNA null, [facility] [employer] [facility] 4 11:24:01 Hematoma of left lower leg 52307626751 966965 Active 2023 JAMAL Banks [address], [place], [address] , [facility] 4 11:44:33 Type 2 diabetes mellitus without complicat ion 231659749 Active 2023 Hannah Rhodes LPN null, [facility] [employer] [facility] 4 09:04:33 Problem Notes None recorded. Procedures Surgical History Date Name Laterality Status Provider Name and Address Organization Details Recorded Time 08/30/20 Medicare Wellness CPT Code, subsequent completed Leigh Ribeiro RN [facility] [employer] [facility] 08/30/2024 15:02:13 08/30/20 Advanced Care Planning completed Leigh Ribeiro RN [facility] [employer] [facility] 08/30/2024 15:04:51 07/05/20 Knee completed Not Available [facility] 08:06:03 release of trigger thumb completed Not Available [facility] 01/05/2023 08:06:03 Gallbladder Surgery completed IRWIN Guadalupe [facility] [employer] [facility] 12/19/2023 12:17:49 Imaging Results Imaging Date Name Status LastModified by Organiz ation Details LastModified Time 06/11/2024 CT, head + brain, w/o contrast completed [facility] (Imaging) [address], [place], [address], 06/12/2024 18:47:19 08/16/2024 XR, tibia + fibula, 2 view completed [email or web address] [facility] [address], [place], [address], 08/16/2024 11:44:04 Procedure Notes None recorded. Medical Equipment None Reported. Allergies Allergen ID Allergen Name Allergen Category Reaction Reaction Severity Criticality Documentation Date Start Date Code Code System Note Provider Name and Address Organization Details Recorded Time 02786 Talwin medicatio n Not available Not available Not available 01/05/2023 8002 RxNorm Not Available [facility] 3 08:12:38 27391 Substance with sulfonami de structure and antibacte rial mechanism of action (substanc e) medicatio n Not available Not available Not available 01/05/2023 81846 8003 SNOMED Not Available [facility] 3 08:12:38 01961 Non-stero idal anti-infl ammatory agent (product) medicatio n nausea Not available Not available 01/05/2023 76093 005 SNOMED Not Available [facility] 3 08:12:38 77232 codeine medicatio n nausea Not available Not available 01/05/2023 2670 RxNorm Not Available [facility] 3 08:12:38 67039 carvedilo l medicatio n seizure Not available Not available 11/16/2023 66776 RxNorm JONAH Cort[place], [place] - [facility] 4 11:37:37 Medications Name Sig Start Date Stop Date Status Note LastModified by Organization Details LastModified Time carisopro dol 350 mg tablet TAKE ONE Tablet BY MOUTH TWICE DAILY 2024 active Not Available Not Available Not Avai lable azithromy curt 250 mg tablet active Not Available Not Available No t Available tretinoin 0.025 % topical cream APPLY TO THE CHEST AREA DIRECTED EVERY EVENING 08/16 completed Not currentl y taking Not Available Not Available Not Available ondansetr on HCl 4 mg tablet TAKE ONE TABLET BY MOUTH EVERY FOUR HOUR(S) FOR THREE DOSES; FIRST DOSE 1-2 HOUR(S) BEFORE RADIATIO N 11/16 completed Not Available Not Available Not Available Synthroid 125 mcg tablet TAKE ONE TABLET BY MOUTH EVERY DAY active Not Available Not Available No t Available Tylenol Arthritis Pain 650 mg tablet,ex tended release Take 2 tablets every 8 hours by oral route. active Not Available Not Available No t Available hydralazi ne 25 mg tablet TAKE ONE TABLET BY MOUTH TWICE DAILY active Not Available Not Available No t Available clopidogr el 75 mg tablet TAKE ONE TABLET BY MOUTH EVERY DAY active Not Available Not Available No t Available chlorthal idone 25 mg tablet TAKE ONE-HALF TABLET BY MOUTH ONCE A DAY 08/20 completed Not Available Not Available Not Available ciproflox acin 500 mg tablet TAKE 1 TABLET BY MOUTH 2 TIMES DAILY FOR 3 DAYS. 06/05 completed Not Available Not Available Not Available omeprazol e 40 mg capsule,d elayed release TAKE 1 CAPSULE BY MOUTH EVERY MORNING 08/20 completed Not Available Not Available Not Available triamcino lone acetonide 0.1 % topical cream APPLY TO THE AFFECTED AREA(S) TWICE DAILY DIRECTED active Not Available Not Available No t Available glimepiri de 2 mg tablet TAKE ONE TABLET BY MOUTH TWICE DAILY 2024 active Not Available Not Available Not Avai lable glimepiri de 1 mg tablet TAKE ONE TABLET BY MOUTH EVERY EVENING (IN ADDITION TO 2MG EVERY MORNING) 05/02 completed 2in morning and 1 at HS Not Available Not Available Not Available pantopraz ole 20 mg tablet,de layed release TAKE ONE TABLET BY MOUTH EVERY DAY 08/20 completed Not Available Not Available Not Available amitripty line 25 mg tablet TAKE 1 TABLET BY MOUTH DAILY AT BEDTIME CAN INCREASE TO 50MG NIGHTLY IF NOT IMPROVIN G 06/05 completed Not Available Not Available Not Available Kenalog 10 mg/mL suspensio n for injection In office injectio n administ ered by the provider 11/16 completed [facility]: [phone] Not Available Not Available Not Available pantopraz ole 40 mg tablet,de layed release TAKE ONE TABLET BY MOUTH EVERY MORNING 12/19 completed Not Available Not Available Not Available biotin 10,000 mcg capsule Take 1 capsule every day by oral route. active Not Available Not Available No t Available hyoscyami ne sulfate 0.125 mg tablet active Not Available Not Available Not Available misoprost ol 200 mcg tablet TAKE 2 TABLET(S ) BY MOUTH AT BEDTIME FOR 1 DAY , THE NIGHT PRIOR TO PROCEDUR E 06/05 completed Not Available Not Available Not Available valsartan 320 mg tablet Take One Tablet By Mouth Every Day 2024 active Not Available Not Available Not Avai lable ursodiol 250 mg tablet Take One Tablet By Mouth Twice Daily 12/19 completed Not Available Not Available Not Available Synthroid 50 mcg tablet 04/19 completed Not Available Not Available Not Available diclofena c sodium 75 mg tablet,de layed release TAKE ONE TABLET BY MOUTH TWICE DAILY NEEDED FOR PAIN 11/16 completed Not Available Not Available Not Available mupirocin 2 % topical ointment APPLY A SMALL AMMOUNT TO THE AFFECTED AREA BY TOPICAL ROUTE THREE TIMES DAILY 05/02 completed Not Available Not Available Not Available Synthroid 112 mcg tablet TAKE ONE TABLET BY MOUTH EVERY DAY 11/16 completed Not Available Not Available Not Available gabapenti n 100 mg capsule TAKE 1 CAPSULE BY MOUTH TWICE DAILY 2024 active Not Available Not Available Not Avai lable estradiol 0.01% (0.1 mg/gram) vaginal cream APPLY ONE GRAM VAGINALL Y THREE TIMEs A WEEK 08/16 completed Not Available Not Available Not Available ondansetr on 4 mg disintegr ating tablet TAKE 1 TABLET BY MOUTH EVERY 8 HOUR (S) NEEDED FOR NAUSEA/E MESIS DISSOLVE ONTOP OF TONGUE THEN SWALLOW WITH SALIVA 06/05 completed Not Available Not Available Not Available fluticaso ne propionat e 50 mcg/actua tion nasal spray,maribeth pension ADMINIST ER TWO SPRAYS IN EACH NOSTRIL ONCE A DAY 09/26 completed Not Available Not Available Not Available dicyclomi ne 10 mg capsule TAKE 1 CAPSULE (10 MG) BY MOUTH EVERY 6 HOURS NEEDED FOR PAIN. 11/16 completed Not Available Not Available Not Available valsartan 160 mg tablet Take 1 tablet every day by oral route. 09/17 completed NOT taking this dose. Takes the 320 since 2016 Not Available Not Available Not Available neomycin 3.5 mg/g-poly myxin B 10,000 unit/g-de xameth 0.1 % eye oint APPLY ONE SMALL AMOUNT ON eyelid TWICE DAILY As Directed 11/16 completed Not Available Not Available Not Available Premarin 0.625 mg/gram vaginal cream insert 1 gram vaginall y 2 times per wk active Not Available Not Available No t Available Ciprodex 0.3 %-0.1 % ear drops,maribeth pension active Not Available Not Available Not Available Multivita min 50 Plus tablet Take 1 tablet every day by oral route. active Not Available Not Available No t Available nitrofura ntoin monohydra te/macroc rystals 100 mg capsule TAKE ONE TABLET BY MOUTH TWICE DAILY 12/19 completed Not Available Not Available Not Available lidocaine (PF) 10 mg/mL (1 %) injection solution In office injectio n administ ered by the provider 11/16 completed [facility]: [phone] 6-17 Not Available Not Available Not Available diclofena c epolamine 1.3 % transderm al 12 hour patch APPLY 1 PATCH TWICE DAILY TO MOST PAINFUL AREA active Not Available Not Available No t Available Bystolic 5 mg tablet TAKE 1 TABLET BY MOUTH EVERY DAY 08/20 completed Not Available Not Available Not Available nebivolol 10 mg tablet TAKE ONE TABLET BY MOUTH EVERY DAY IN THE MORNING active Not Available Not Available No t Available cetirizin e 10 mg capsule Take 1 capsule every day by oral route. active Not Available Not Available No t Available levothyro xine 112 mcg capsule Take 1 capsule every day by oral route. active Not Available Not Available No t Available Suprep Bowel Prep Kit 17.5 gram-3.13 gram-1.6 gram oral solution DIRECTED 08/20 completed Not Available Not Available Not Available TRUEplus Lancets 30 gauge test BLOOD SUGAR ONCE DAILY active Not Available Not Available No t Available True Metrix Glucose Test Strip TEST BLOOD SUGAR EVERY DAY 2024 active Not Available Not Available Not Avai lable True Metrix Glucose Meter USE TO TEST BLOOD SUGAR DAILY active Not Available Not Available No t Available True Metrix Glucose Test Strip use to test blood sugar daily active Not Available Not Available No t Available cyanocoba jeanine (vitamin B-12) 5,000 mcg capsule Take 1 capsule every day by oral route. active Not Available Not Available No t Available Vitals Date Recorded Body height Body mass index (BMI) Body weight Body temperature Heart rate Oxygen saturation Oxygen saturation in Arterial blood by Pulse oximetry Systolic blood pressure Diastolic blood pressure Provider Name and Address Organization Details Last Updated DateTime 4 165.1 cm 22.5 kg/m2 45779.9 7 g 97.8 [degF] 65 /min 97 % 97 % 134 mm[Hg] 74 mm[Hg] Rocio mireles Rosaura [facility] [employer] [facility] 4 15:58:55 Date Recorded Body height Body mass index (BMI) Body weight Body temperature Heart rate Respiratory rate Oxygen saturation Oxygen saturation in Arterial blood by Pulse oximetry Systolic blood pressure Diastolic blood pressure Provider Name and Address Organization Details Last Updated DateTime 4 165.1 cm 23 kg/m2 31454.7 5 g 97.2 [degF] 64 /min 16 /min 97 % 97 % 124 mm[Hg] 72 mm[Hg] Kym Hui MA [facility] [employer] [facility] 4 16:08:45 Date Recorded Body height Body mass index (BMI) Body weight Provider Name and Address Organization Details Last Updated DateTime 08/16/2024 165.1 cm 22.6 kg/m2 41190.56 g Sheeba Acosta CNA [facility] [employer] [facility] 08/16/2024 11:14:33 Date Recorded Body weight Body mass index (BMI) Body height Body temperature Heart rate Oxygen saturation Oxygen saturation in Arterial blood by Pulse oximetry Systolic blood pressure Diastolic blood pressure Provider Name and Address Organization Details Last Updated DateTime 4 79763.3 4 g 23.1 kg/m2 165.1 cm 97.3 [degF] 70 /min 98 % 98 % 130 mm[Hg] 80 mm[Hg] Rocio mireles Rosaura [facility] [employer] [facility] 4 11:56:36 Date Recorded Body height Body mass index (BMI) Body weight Body temperature Heart rate Oxygen saturation Oxygen saturation in Arterial blood by Pulse oximetry Systolic blood pressure Diastolic blood pressure Provider Name and Address Organization Details Last Updated DateTime 5 165.1 cm 22.3 kg/m2 64527.3 8 g 97.1 [degF] 87 /min 98 % 98 % 119 mm[Hg] 72 mm[Hg] Joceline kimbrough [place] [facility] [employer] [facility] 5 14:56:10 Social History Question Answer Notes LastModified by Organization Details LastModified Time Tobacco Smoking Status Never Smoker Not Available [facility] 01/05/2023 08:05:56 Do You Have An Advance Directive? No Paperwork Provided 08/30/2024 [email or web address] Information not available 08/30/2024 What Is Your Level Of Alcohol Consumption? None Information not available 11/16/2023 Are You Blind Or Do You Have Difficulty Seeing? No [email or web address] Information not available 11/16/2023 Is Blood Transfusion Acceptable In An Emergency? Yes Information not available 11/16/2023 What Is Your Level Of Caffeine Consumption? Occasional Herbal Tea [email or web address] Information not available 11/16/2023 In The 14 Days Before Symptom Onset, Have You Had Close Contact With A Laboratory-confi rmed COVID-19 While That Case Was Ill? No [email or web address] Information not available 11/16/2023 In The 14 Days Before Symptom Onset, Have You Had Close Contact With A Person Who Is Under Investigation For COVID-19 While That Person Was Ill? No Information not available 11/16/2023 Are You Currently Employed? No Retired [email or web address] Information not available 11/16/2023 Are You Deaf Or Do You Have Serious Difficulty Hearing? No [email or web address] Information not available 11/16/2023 What Type Of Diet Are You Following? REGULAR [email or web address] Information not available 11/16/2023 What Is The Highest Grade Or Level Of School You Have Completed Or The Highest Degree You Have Received? [id number] [email or web address] Information not available 11/16/2023 How Many Days Of Moderate To Strenuous Exercise, Like A Brisk Walk, Did You Do In The Last 7 Days? 1 Walking At Home Up Stairs [email or web address] Information not available 08/30/2024 On Those Days That You Engage In Moderate To Strenuous Exercise, How Many Minutes, On Average, Do You Exercise? 60 [email or web address] Information not available 08/30/2024 Have There Been Any Changes To Your Family Or Social Situation? No [email or web address] Information not available 08/30/2024 What Is The Fluoride Status Of Your Home? Fluoridated [email or web address] Information not available 08/30/2024 Are There Any Guns Present In Your Home? Yes [email or web address] Information not available 08/30/2024 Do You Use Insect Repellent Routinely? No [email or web address] Information not available 11/16/2023 Where Do You Live? [facility] [email or web address] Information not available 08/30/2024 Do You Have A Medical Power Of Chief Internal Auditor? No Information not available 11/16/2023 What Was The Date Of Your Most Recent Tobacco Screening? 08/30/2024 [email or web address] Information not available 08/30/2024 How Many Children Do You Have? 3 [email or web address] Information not available 11/16/2023 Do You Have Any Pets? Yes [email or web address] Information not available 08/30/2024 What Is Your Relationship Status? [email or web address] Information not available 11/16/2023 Do You Use Your Seat Belt Or Car Seat Routinely? Yes [email or web address] Information not available 11/16/2023 Are You Sexually Active? Yes [email or web address] Information not available 08/30/2024 Do You Have Smoke And Carbon Monoxide Detectors In Your Home? Yes [email or web address] Information not available 11/16/2023 Are You Passively Exposed To Smoke? No [email or web address] Information not available 11/16/2023 Are There Any Smokers In Your House? No [email or web address] Information not available 11/16/2023 What Types Of Sporting Activities Do You Participate In? None [email or web address] Information not available 08/30/2024 Do You Feel Stressed (tense, Restless, Nervous, Or Anxious, Or Unable To Sleep At Night)? [id number] Information not available 11/16/2023 Do You Use Any Illicit Or Recreational Drugs? No [email or web address] Information not available 11/16/2023 Do You Use Sunscreen Routinely? Yes [email or web address] Information not available 08/30/2024 Has Tobacco Cessation Counseling Been Provided? No [email or web address] Information not available 11/16/2023 Have You Recently Traveled Abroad? No [email or web address] Information not available 11/16/2023 Do You Have Any Dietary Restrictions? No Information not available 11/16/2023 Do You Or Have You Ever Used Any Other Forms Of Tobacco Or Nicotine? No [email or web address] Information not available 11/16/2023 Sex: Female Functional Status Question Answer Note LastModified by Organizat ion Details LastModified Time Do you have difficulty walking or climbing stairs? No [email or web address] Information not available 11/16/2023 Do you have transportation difficulties? No [email or web address] Information not available 11/16/2023 Are you able to walk? [email or web address] Information not available 11/16/2023 Do you have difficulty doing errands alone? No [email or web address] Information not available 08/30/2024 Are you able to care for yourself? Yes [email or web address] Information n ot available 11/16/2023 Do you have difficulty dressing or bathing? No [email or web address] Information not available 11/16/2023 What is your exercise level? Moderate Water Aerobics [email or web address] Information not available 11/16/2023 Mental Status Question Answer Note LastModified by Organization D etails LastModified Time Do you have difficulty concentrating, remembering or making decisions? No Information no t available 11/16/2023 Family History Relationship Description Onset Age of this Age Resolved Age Notes LastModified by Organization Details LastModified Time Father Heart disease [email or web address] [id number] Not available 01/05/2023 08:06:04 Father Family history of stroke [id number] Not available 01/05/2023 08:06:04 Father Hypertensive disorder [id number] Not available 01/05/2023 08:06:04 Brother Heart disease multip le brothe rs Not available 08/16/2024 11:22:14 Brother Hypertensive disorder multip le brothe rs Not available 08/16/2024 11:22:27 Medical History Condition Response ARTHRITIS Y DIABETES, TYPE Y USE OF BLOOD THINNERS Y HAVE YOU BEEN HOSPITALIZED OR SEEN IN [facility] ER IN THE PAST YEAR ? Y HYPERTENSION Y STROKE/TIA Y Gynecological HistoryNo gynecological history recorded. Obstetrics History GPAL:G 0 P 0 0 0 0 Past Encounters Encounter ID Performer Location Encounter Start Date Encounter Closed Date Diagnosis/Indication Diagnosis SNOMED-CT Code Diagnosis ICD10 Code Diagnosis Note [id number] [facility] [place] [address] [place] [address] 01/21/2021 00:00:00 01/21/2021 16:04:31 [id number] Magdiel Springer MD [facility] Internal [address] [place] [address] 11/16/2023 11:18:04 11/16/2023 12:31:23 Adult health examination 850733910 Z00.00 Z13.220 Flu-DECLIN EDCovid-DE CLINED Diabetes mellitus 840969 09 E11.9 UNDER CONTROL, HAD LABS NOT TOO LONG AGO Essential hypertension 33949487 I10 under control Hypothyroidism 43753475 E03.9 stable with meds Low back pain 757953253 M54.50 on diclofenac patches bid, on muscle relaxants daily Pain in left foot 180569 6692 24067 M79.672 due to neuropathy [id number] Magdiel Springer MD [facility] Internal [address] [place] [address] 12/19/2023 11:59:23 12/19/2023 12:46:03 Adult health examination 968045283 Z00.00 Z13.220 Colonoscop y- has been about 7yrs, NO MORE NEEDEDMamm ogram- 2019- has an OrderDEXA- 2020- NL per ptPneumova x- DeclinedFl u-DECLINED Covid-DECL INED Diabetes mellitus 700259 09 E11.9 under control Essential hypertension 87928215 I10 under control Hypothyroidism 12447185 E03.9 stable with meds Low back pain 275464200 M54.50 on diclofenac patches bid, on muscle relaxants daily Pain in left foot 846549 4738 20659 M79.672 due to neuropathy Long-term drug therapy 694737275 Z79.899 Postmenopausal state 764 99118 Z78.0 [id number] Magdiel Springer MD [facility] [address] [place] [address] 05/02/2024 11:48:29 05/02/2024 12:37:43 Adult health examination 268412108 Z00.00 Z13.220 Colonoscop y- has been about 7yrs, NO MORE NEEDEDMamm ogram- 2023- [place]- NL per ptDEXA- 03/26/2024 Pneumovax- DeclinedFl u-DECLINED Covid-DECL INED Diabetes mellitus 938628 09 E11.9 not under control, ^ the Glimepride to bid Essential hypertension 94287962 I10 under control Hypothyroidism 71351012 E03.9 stable with meds Low back pain 711780707 M54.50 on diclofenac patches bid, on muscle relaxants daily Pain in left foot 226530 4778 42243 M79.672 due to neuropathy Osteoarthritis 391185457 M19.90 diclefenac History of transient ischemic attack 907915814 Z86.73 on plavix [id number] [facility] Internal [facility] [address] [place] [address] 06/11/2024 15:40:25 06/11/2024 16:52:13 Closed injury of head 0799553659 06 S09.90XA [id number] Grace Clayton NP [facility] Internal [facility] [address] [place] [address] 08/10/2024 15:55:38 08/10/2024 16:21:15 Traumatic hematoma 622110937 T14.8XXA unhealing hematoma on anterior left ndiaye area for two months, still painful and bruisedwil l refer to ortho for possible drainage [id number] JAMAL Banks [facility] [place] [address] [place] [address] 08/16/2024 10:57:49 08/16/2024 13:08:23 Pain of left lower leg 3437658320 43268 M79.662 Hematoma o f left lower leg 8339953733 2234552 S80.12XA [id number] Magdiel Springer MD [facility] Internal [facility] [address] [place] [address] 08/30/2024 11:27:00 08/30/2024 12:44:53 Adult health examination 149883589 Z00.00 Z13.220 Colonoscop y- has been about 7yrs, NO MORE NEEDEDMamm ogram- 2023- [place]- NL per ptDEXA- 03/26/2024 Pneumovax- DeclinedFl u-DECLINED Covid-DECL INED Diabetes mellitus 190898 09 E11.9 labs then decide about meds Essential hypertension 13992282 I10 under control Hypothyroidism 67653004 E03.9 stable with meds Low back pain 404330965 M54.50 on diclofenac patches bid, on muscle relaxants daily Pain in left foot 986522 2156 47121 M79.672 due to neuropathy Osteoarthritis 428217363 M19.90 diclofenac History of transient ischemic attack 124062854 Z86.73 on plavix Screening for disorder 690259945 Z13.9 [id number] Magdiel Springer MD [facility] [address] [place] [address] 01/21/2025 14:43:32 01/21/2025 15:15:18 Adult health examination 136136261 Z00.00 Z13.220 Colonoscop y- has been about 7yrs, NO MORE NEEDEDMamm ogram- 2023- [place]- NL per ptDEXA- 03/26/2024 Pneumovax- DeclinedFl u-DECLINED Covid-DECL INED Diabetes mellitus 828760 09 E11.9 advise dto get labs Essential hypertension 69450941 I10 under control Hypothyroidism 73185359 E03.9 stable with meds Low back pain 807496676 M54.50 on diclofenac patches bid, on muscle relaxants daily Pain in left foot 820821 3354 82298 M79.672 due to neuropathy Osteoarthritis 257315274 M19.90 diclofenac History of transient ischemic attack 964472058 Z86.73 on plavix Long-term drug therapy 516003351 Z79.899 Health Concerns Section Related Observation LastModified by Organization Detai ls LastModified Time None Recorded Concern Status LastModified by Organization Details LastModified Time None Recorded Advance Directives Directive N: paperwork provided 2023 Payers Encounter Date Sequence Insurance Name Policy Number Policy Morton Covered Member ID Morton Member ID Guarantor Name 06/11/2024 1 [place] Hawa A Neo [id number] Hawa A Neo 06/11/2024 2 [place] [id number] Hawa A Neo [id number] Hawa A Neo 08/10/2024 1 [place] Hawa A Neo [id number] Hawa A Neo 08/10/2024 2 [place] [id number] Hawa A Neo [id number] Hawa A Neo 08/16/2024 1 [place] Hawa A Neo [id number] Hawa A Neo 08/16/2024 2 [place] [id number] Hawa A Neo [id number] Hawa A Neo 08/30/2024 1 [place] Hawa A Neo [id number] Hawa A Neo 08/30/2024 2 [place] [id number] Hawa A Neo [id number] Hawa A Neo 01/21/2025 1 [place] Hawa A Neo [id number] Hawa A Neo 01/21/2025 2 [place] [id number] Hawa A Neo [id number] Hawa A Neo Notes Date Note Type Note Provider Name and Address Organization Details Recorded Time 06/11/2024 text/html Pt is here today for a follow up from a fall.She fell last . Got up in the middle of the night to use the bathroom, got dizzy and fell back onto the hardwood floors.She did not go to the ER. Had severe pain in the back of her head, she took OTC pain reliever. Still has some pain and swelling.Denies any nausea or vomiting, stomach seems a little irritated but its from the meds. (shes sensitive)she denies any cp or sobfeeling sinus pressuresince last week, eating fine Magdiel Springer MD [address] [facility] [address], [place], [address], [place] [employer] 06/11/2024 16:40:37 08/10/2024 text/html She fell in the beginning of june trying to carry items up the stares. She hurt her left ndiaye area and there was bruising and swelling all the way into her foot. All of the bruising and swelling is now better except for a hematoma area on the anterior ndiaye area. Grace Clayton NP [address], [place], [address], [email or web address] 08/10/2024 17:35:18 08/16/2024 text/html The patient is a n 84-year-old female who injured her left anterior lower leg 2 months ago while walking up some stairs. She tripped and fell she was carrying bowl of salad and did not want to spill it, she landed on the anterior lower leg on the edge of the stair. She developed a hematoma over the anterior tibia about midway down her leg. She had a very large bump which developed bruising around it. She never had any pain with ambulation or weight-bearing on the tibia. She saw her primary care doctor who advised her to give it time and asked her to follow up with the orthopedic service she comes in today for x-rays and evaluation. She does have a 3 cm diameter bump that is raised about a cm consistent with an old hematoma. There is no ecchymosis or discoloration noted at this time no evidence of infection. She states it is not really painful to touch unless she does deep more aggressive massage or palpation. She has no dysfunction or neurovascular deficits in the foot ankle or toes. She comes in today for x-rays and evaluation. A new past medical history sheet was reviewed and signed on intake sheet of today's date drug allergies current medications family social history previous surgical history 10 point review of systems was reviewed and discussed in detail today with the patient. JAMAL Banks [address], [place], [address], [email or web address] 08/16/2024 11:46:25 08/30/2024 text/html She is here toda y for a routine follow up, Compliant to meds. No complaintsPT IS NOT FASTINGMedicare Wellness Exam DM- accu checks are 130-170, A1c- 7.6No hypoglycemiaupset stomach with metforminmild Retinopathy, last exam 08/29, duewatching dietdoes not want statinsMeds- Glimepiride 2mg in AM and 2mg @ pm HTN- bp under uetxmvm566/70 todayMeds- Valsartan 320mg daily, Nebivolol 10mg daily, Hydralazine 25mg daily at HS Neuropathy not related to DiabetesMeds- Gabapentin 100mg BID TIA- minor TIA does not see cardiology or neurology. 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 No complaintsPT IS NOT FASTING DM- accu checks are 50-160, A1c- 7.6 HIGH SINCE TAKING EPIDURALSNo hypoglycemiaupset stomach with metforminmild Retinopathy, last exam 08/29, duewatching dietdoes not want statinsMeds- Glimepiride 2mg in AM and 2mg @ pm HTN- bp under controlMeds- Valsartan 320mg daily, Nebivolol 10mg daily, Hydralazine 25mg daily at HS Neuropathy not related to DiabetesMeds- Gabapentin 100mg BID TIA- minor TIA does not see cardiology or neurology. 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
--- OUTSIDE RECORDS SUMMARY | 2025-02-08 22:49 | XMS_ITS | Clinical Summary ---
Author Organization [facility] [employer] Address [address] [place] [address] Care Team Providers Care Motion Picture Critic Name Role Phone Unavailable Primary Care Provider Unavailabl e Source Comments [facility],non-owned Affiliates and Associated Physician Practices is amultiple site organization consisting of ambulatory clinics and hospital sitesin [place], [place], [place] and [place]. This disclosure is being madepursuant to the Care Everywhere program and may not contain all information available regarding this patient. Last updated 18.[facility] [employer] Allergies No known active allergies Medications * Be aware that medications may not be up to date on this document. Alwaysverify current medications with the patient. Medication Sig Dispensed Refills Start Date End Date Status gabapentin (NEURONTIN) 100 MG capsule Take 100 mg by mouth 2 times daily 04/30/2022 Active glimepiride (AMARYL) 1 MG tablet Take 1 mg by mouth once daily 02/03/2021 Active cetirizine (ZYRTEC ALLERGY) 10 MG gel capsule Take 10 mg by mouth once daily Active valsartan (DIOVAN) 320 MG tablet Take 320 mg by mouth once daily Active nebivolol (BYSTOLIC) 10 MG tablet Take 10 mg by mouth every morning 04/30/2022 Active hydrALAZINE (APRESOLINE) 25 MG tablet Take 25 mg by mouth 2 times daily 04/02/2021 Active carisoprodol (SOMA) 350 MG tablet Take 350 mg by mouth 2 times daily 04/23/2022 Active diclofenac (FLECTOR) 1.3 % patch diclofenac epolamine 1.3 % transdermal 12 hour patch Active Multiple Vitamin (DAILY VITES) TABS Take 1 tablet by mouth once daily Active acetaminophen CR (ACETAMINOPHEN 8 HOUR) 650 MG tablet Take 650 mg by mouth 2 times daily Active Biotin 10 MG Take 10 mg by mouth once daily Active Probiotic Product (PROBIOTIC-10 PO) Active Magnesium 400 MG Take 800 mg by mouth at bedtime Active calcium citrate-vitamin D (CITRACAL PETITES/VITAMIN D) 200-250 MG-UNIT tablet Take 2 tablets by mouth once daily Active Multiple Vitamin (MULTI-VITAMIN DAILY PO) Take 2 capsules by mouth 2 times daily Active Cyanocobalamin (B-12) 5000 MCG Take 1 capsule by mouth once daily Active Active Problems Problem Noted Date Diagnosed Date Sacral insufficiency fracture 05/13/2022 History of fracture of left hip 05/13/2022 Postmenopausal osteoporosis 05/12/2022 Social History Tobacco Use Types Packs/Day Years Used Date Smoking Tobacco: Never Assessed Sex and Gender Information Value Date Recorded Sex Assigned at Not on file Gender Identity Not on file Sexual Orientation Not on file Plan of Treatment Health Maintenance Due Date Last Done Comments BONE DENSITY TESTING 1940 MEDICARE AWV 12 MONTHS 1940 DTAP/TDAP/TD VACCINES (1 - Tdap) 1961 PNEUMOCOCCAL VACCINE 50+ (1 of 1 - PCV) 1992 ZOSTER VACCINE (1 of 2) 1992 Respiratory Syncytial Virus (RSV) Vaccine Pt: or over 60 yrs (1 - 1-dose 75+ series) 2017 COVID-19 VACCINE (2023-2 5 season) 2024 DEPRESSION SCREENING 11/07/2024 INFLUENZA VACCINE (Season Ended) 2025 HEPATITIS B VACCINE Aged Out No longe r eligible based on patient's age to complete this topic HIB VACCINE Aged Out No longer eligi ble based on patient's age to complete this topic HPV VACCINE Aged Out No longer eligi ble based on patient's age to complete this topic MENINGOCOCCAL (Group B) VACC INE SHARED DECISION-MAKING Aged Out No longer eligibl e based on patient's age to complete this topic MENINGOCOCCAL GROUPS A/C/Y/W VACCINE Aged Out No longer eligible b ased on patient's age to complete this topic Hawa Larson Personal/Family Self [address] [place] [id number]
--- OUTSIDE RECORDS SUMMARY | 2025-02-08 22:49 | XMS_ITS | Encounter Summary ---
Author Organization [facility] Healthcare Address [address] [place] [address] Care Team Providers Care Guitar Technician Name Role Phone Jamil Sinclair MD Primary Care Provider [phone] Encounter Details Date Type Department Care Team (Late st Contact Info) Description 12/23/2016 11:45 PM PAPER TWISTER TENDER Hospital Encounter CH ADMIT [address] [place], [place] [id number] [place] [address] [facility] [address] [place] [address] Social History Tobacco Use Types Packs/Day Years Used Date Smoking Tobacco: Never Smokeless Tobacco: Never Alcohol Use Standard Drinks/Week Comments No 0 (1 standard drink = 0.6 oz pur e alcohol) AUDIT-C Answer Date Recorded Q1: How often do you have a drink containing alcohol? Never 11/21/2024 Q2: How many drinks containi ng alcohol do you have on a typical day when you are drinking? Patient does not drink Q3: How often do you have si x or more drinks on one occasion? Never 11/21/2024 Comments Unknown Sex and Gender Information Value Date Recorded Sex Assigned at Not on file Legal Sex Female 5:32 PM PAPER TWISTER TENDER Gender Identity Not on file Sexual Orientation Not on file documented as of this encounter Functional Status * Audit-C Score Answer Date of Assessment Author 0 11/21/2024 10:50 AM Josey Valencia MA * Question Answer Date of Assessment Author Q1: How often do you have a drink containing alcohol? Never 11/21/2024 10:50 AM Willian Valencia MA Q2: How many drinks containing alcohol do you have on a typical day when you are drinking? Patient does not drink 11/21/2024 10:50 AM Josey Valencia MA Q3: How often do you have six or more drinks on one occasion? Never 11/21/2024 10:50 AM Willian Valencia MA documented as of this encounter Consult Notes * Provider, MD Staci - 12/24/2016 12:00 AM CST CONSULTATION REPORT Patient: HAWA MORRIS Service Date: 12/24/2016 Account: [id number] Room No: : 1940 Patient Type: IP Attend.: Richmond Waite M.D., F.H.MRoxy, FAlia Admit Date: 12/23/2016 Consult.: Mili Powers M.D. Disch. Date: CONSULTING PHYSICIAN Mili Powers MD REASON FOR CONSULTATION Abdominal pain following the ERCP. Ms. Morris is a 76-year-old woman who is known to me. She came to the hospital yesterday for elective endoscopic retrograde cholangiopancreatogram for possible sphincter of Oddi dysfunction. The procedure was difficulty as I was unable to successfully cannulate the common bile duct. Several attempts were made and the guidewire kept going into the pancreatic duct. Eventually, the procedure was terminated and I placed a 4- Urdu x 4 cm stent in the pancreatic duct to allow for drainage to prevent post ERCP pancreatitis. Following the procedure, the patient complained of severe abdominal pain. My initial concern was that she could post ERCP pancreatitis. She was admitted for observation. CBC, CMP, amylase, lipase, and obstructive series where requested. The KUB revealed possible retroperitoneal air. The patient had been given IV fluids and kept on clear liquids. An immediate CT scan of the abdomen and pelvis was requested and she was started on intravenous antibiotics. This morning, the pain is slightly better. She has been tolerating a combination of Dilaudid, antiemetics, and antispasmodic. She still has abdominal pain but is less severe. She feels that she needs to make a bowel movement. She denies vomiting. PAST MEDICAL HISTORY Positive for hypertension, diabetes, stroke, hypothyroidism, peripheral neuropathy, vertigo. ALLERGIES CODEINE, NSAIDS, AND DILAUDID. DILAUDID REPORTEDLY GIVES HER NAUSEA. FAMILY HISTORY Mother had pulmonary fibrosis. Father had stroke. SOCIAL HISTORY She has 3 children. She lives with her . She denies illicit drug use, tobacco use, or alcohol use. HOME MEDICATIONS 1. Atorvastatin. 2. Plavix. 3. Diovan HCT. 4. Florastor. 5. Gabapentin. 6. Glimepiride. 7. Meclizine. 8. Synthroid. REVIEW OF SYSTEMS General: She denies fevers or chills or weight loss. HEENT: She denies visual loss or hearing loss. Pulmonary: She denies cough or sputum production. Cardiac: She denies chest pain. Genitourinary: She denies dysuria or hematuria. Skin: She denies rash. Psychiatric: She denies being suicidal. Endocrine: She denies polyuria or polydipsia. Neurologic: She denies headaches or seizures. PHYSICAL EXAM She is consciousness. She is oriented to place, time, and person. She is apprehensive but not in any obvious distress. Weight is 60.4 kg height is 5 feet 5 inches, BMI 22.2. Temperature is 98.1, blood pressure is 126/60. Head: Atraumatic. Eyes: Reveal no jaundice. Oral Cavity: Reveals no tonsillar enlargement. Neck: Supple. Lungs: Clear. Cardiac Exam: Reveals S1, S2. There is no S3, S4, or gallop. Abdomen: Soft. There is no tenderness. There is no palpable organomegaly. Bowel sounds are present. Rectal Exam: Deferred. Lower Extremities: Reveal no calf tenderness or edema. Neurological Examination: Reveals no focal deficits. Skin: Reveals no rash. Addendum to Abdominal Examination: Diminished bowel sounds. LABORATORY FINDINGS Amylase is 416. Lipase is 457. Liver function tests are normal. Hematocrit is 35.5, hemoglobin 11.5, WBC 13.76. WBC last time was 17.59. I reviewed the KUB with the radiologist, Dr. Tye Diego and there appears to be retroperitoneal air and possible free intraperitoneal air on the KUB and chest x-ray. IMPRESSION Abdominal pain with possible perforation following ERCP. The patient did not have a sphincterotomy. My suspicion is that the guidewire likely may have caused the perforation. Currently, the patient appears stable. She does not have peritoneal signs. She has been started on broad-spectrum antibiotics and kept NPO. I will also do a STAT CT scan of the abdomen and pelvis. Surgical consultation will be requested. I did discuss the case with the surgeon, Dr. Anderson, who agreed to see the patient in consultation today. Again, she will be kept on antibiotics, IV fluids, and NPO and monitored closely. The patient was also discussed with Dr. Waite. Thank you for the opportunity to assist in the care of this patient. Electronically Authenticated by: Mili Powers MD On 12/25/2016 08:50 AM PAPER TWISTER TENDER Mili Powers M.D. OCO/ams TD: 12/24/2016 19:53 documented in this encounter Plan of Treatment Not on file documented as of this encounter Visit Diagnoses Not on filedocumented in this encounter Care Teams Guitar Technician Relationship Specialty [place] [id number] [place] [address] PCP - General 12/23/16 02/03/17 documented as of this encounter
--- OUTSIDE RECORDS SUMMARY | 2025-02-08 22:49 | XMS_ITS | Continuity of Care Document ---
Author Organization [facility] Address [address] [place] [address] [place] [address] Phone Care Team Providers Care Computer Console Operator Name Role Phone Sridhar Miles Unavailable Unavailable Advance Directives Directive Yes / No Effective Date File Name No Information Encounters Encounter Description Practice Location Reason(s) For Visit Diagnoses Date Provider Providers Copied on Encounter [facility] [place], [address], [place], [place], [id number], [place] tel:[phone] [facility] No Information Jd Waller. [address] [place], [address], [place]. tel:[phone] Family History Family Member Type Diagnosis Age At Onset No Information Payers Payer name Insurance type Covered constitution party ID Authoriza tion(s) No Information Social History Type Description Quantity Date Captured Comments Sex Female Smoking Status No Information Chief Complaint And Reason For Visit No Information Reason For Referral Reason For Referral No Information History Of Present Illness Encounter Date Complaint History Of Prese nt Illness No Information Functional Status Date Functional Assessmen t No Information Instructions Date Instruction Additional Infor mation No Information Assessments Type Assessment Date No Information Patient Care Teams Name Effective Dates (start - stop) Status Members No Information
--- OUTSIDE RECORDS SUMMARY | 2025-02-08 22:49 | XMS_ITS | Continuity of Care Document ---
Author Organization [facility] Address [address] [place] [address] Phone Care Team Providers Care Computer Systems Information Director Name Role Phone Yves Reveles MD Unavailable Unavailable Allergies, Adverse Reactions, Alerts Substance Reaction Status Criticality codeine Active No Information Medications Medication Instructions Dosage Effective Dates (start - stop) Status Comments Flector 1.3 % Transderm 12 hr Patch apply 1 patch (180MG) by transdermal route 2 times every day to most painful area 180 MG - Active amoxicillin 500 mg tablet take 1 tablet (500MG) by oral route every 12 hours 500 MG - Active Macrobid 100 mg capsule take 1 capsule (100MG) by oral route every 12 hours with food 100 MG - Active Neurontin 100 mg capsule take 1 Capsule (100MG) by oral route 3 times every day 100 MG - Active Procedures Procedure Date OFFICE/OUTPATIENT VISIT, EST OFFICE/OUTPATIENT VISIT, EST OFFICE/OUTPATIENT VISIT, EST OFFICE/OUTPATIENT VISIT, EST REMOVE IMPACTED EAR WAX OFFICE/OUTPATIENT VISIT, EST OFFICE/OUTPATIENT VISIT, EST Advance Directives Directive Yes / No Effective Date File Name No Information Encounters Encounter Description Practice Location Reason(s) For Visit Diagnoses Date Provider Providers Copied on Encounter [facility], [address] [place], [id number], [place] tel:[phone] [facility] No Information 4 Abdirizak Marinelli. [address] [place], [address] , [place]. tel:[phone] [facility], [address], [place], [place], [address], [place] tel:[phone] [facility] No Information 4 Abdirizak Marinelli. [address], [place], [place], [address] , [place]. tel:[phone] Referring Provider: Yves Reveles, [address], [place], [place], [address]. tel:[phone] OFFICE/OUTPA TIENT VISIT, EST [facility], [address], [place], [place], [address], [place] tel:[phone] [facility] renal cyst (chief complaint)ost eoprosis (chief complaint)UTI (chief complaint)dani k pain (chief complaint) OsteoporosisCyst ic kidney disease, unspecifiedUrina ry Tract InfectionLumbago Jul- 4 Abdirizak Marinelli. [address], [place], [place], [address] , [place]. tel:[phone] Referring Provider: Yves Reveles, [address], [place], [place], [address]. tel:[phone] [facility], [address], [place], [place], [address], [place] tel:[phone] [facility] Cystic kidney disease, unspecified 4 Abdirizak Marinelli. [address], [place], [place], [address] , [place]. tel:[phone] Referring Provider: Yves Reveles, [address], [place], [place], [address]. tel:[phone] OFFICE/OUTPA TIENT VISIT, EST [facility], [address], [place], [place], [address], [place] tel:[phone] [facility] abdominal pain (chief complaint) Abdominal Pain Jan- 4 Abdirizak Marinelli. [address], [place], [place], [address] , [place]. tel:[phone] Referring Provider: Yves Reveles, [address], [place], [place], [address]. tel:[phone] OFFICE/OUTPA TIENT VISIT, [facility], [address], [place], [place], [address], [place] tel:[phone] [facility] left foot pain (chief complaint) Lesion of plantar nerve 4 Abdirizak Marinelli. [address], [place], [place], [address] , [place]. tel:[phone] Referring Provider: Yves Reveles, [address], [place], [place], [address]. tel:[phone] [facility], [address], [place], [place], [address], [place] tel:[phone] [facility] No Information 3 Abdirizak Marinelli. [address], [place], [place], [address] , [place]. [phone] OFFICE/OUTPA TIENT VISIT, [facility], [address], [place], [place], [address], [place] tel:[phone] [facility] chest pain (chief complaint)DM (chief complaint)ost eoporosis (chief complaint) OsteoporosisDiab etes Mellitus Type 2, UncomplicatedHer editary sensory neuropathyChest Tightness 3 Abdirizak Marinelli. [address], [place], [place], [address] , [place]. [phone] [facility], [address], [place], [place], [address], [place] tel:[phone] [facility] cerumen (chief complaint) Impacted cerumen 3 Abdirizak Marinelli. [address], [place], [place], [address] , [place]. [phone] Referring Provider: Yves Reveles, [address], [place], [place], [address]. tel:[phone] OFFICE/OUTPA TIENT VISIT, [facility], [address], [place], [place], [address], tel:[phone] [facility] osteoporosis (chief complaint)ear pain (chief complaint) OsteoporosisImpa cted cerumenOtalgia, unspecified 3 Abdirizak Marinelli. [address], [place], [place], [address] , [place]. [phone] Referring Provider: Windy [address], [place], [place], [address]. tel:[phone] OFFICE/OUTPA TIENT VISIT, [facility], [address], [place], [place], [address], [place] tel:[phone] [facility] DM (chief complaint)Hyp othyroidism (chief complaint)dani k pain (chief complaint) Diabetes Mellitus Type 2, UncomplicatedHyp othyroidismHered itary sensory neuropathy 3 Abdirizak Marinelli. [address], [place], [place], [address] , [place]. [phone] Referring Provider: Windy Forrester [facility] [address], [place], [place], [address]. tel:[phone] Family History Family Member Type Diagnosis Age At Onset Father Problem (finding) Coronary artery disease Mother Problem (finding) at residential Brother Problem (finding) Coronary artery disease Payers Payer name Insurance type Covered green party ID Authoriza tion(s) No Information Social History Type Description Quantity Date Captured Comments Sex Female Smoking Status No Information Chief Complaint And Reason For Visit No Information Plan Of Treatment Date Type Action Status Referral Ordered: MRI ABDOMEN W/O & W/DYE ordered Referral Ordered: COLONOSCOPY AND BIOPSY ordered Referral Ordered: CT ABD&PELV 1+ SECTION/REGNS ordered Referral Ordered: CHEST X-RAY PA/LAT TWO-VIEWS ordered Referral Ordered: US THYROID ordered History Of Present Illness Encounter Date Complaint History Of Prese nt Illness No Information Instructions Date Instruction Additional Infor mation No Information Assessments Type Assessment Date No Information
--- OUTSIDE RECORDS SUMMARY | 2025-02-08 22:49 | XMS_ITS | CONTINUITY OF CARE DOCUMENT ---
Author Name damaris ocampo Address Unknown Organization [facility] Address [address] [facility] [address] [place] [address] Phone [phone] Care Team Providers Care Step Down Nurse Name Role Phone Abdi PATIÑO, Ziggy Unavailable INSURANCE PROVIDERS Payer name Policy type / Coverage type [place] red alliance party ID [employer] Commercial insura gae [place] [id number] [place] Medicare [id number]
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
--- OUTSIDE RECORDS SUMMARY | 2025-02-08 22:49 | XMS_ITS | Referral Summary ---
Author Organization [facility] Address [address] [place] [address] Care Team Providers Care Telegraphic Instrument Supervisor Name Role Phone Magdiel Springer MD Primary Care Provider Encounters Date Type Department Care Team Description 11/21/2024 10:45 AM CLIENT RELATION SPECIALIST Ancillary Procedure [facility] Imaging at [address] [phone] Right knee pain, unspecified chronicity 11/21/2024 10:40 AM CLIENT RELATION SPECIALIST Ancillary Procedure [facility] Imaging at [address] [phone] Right knee pain, unspecified chronicity 11/21/2024 11:15 AM CLIENT RELATION SPECIALIST Office Visit [facility] Orthopedic and Sports Medicine [address] [place] [phone] Tanner Chu PA Primary osteoarthritis of right knee (Primary Dx) from Last 3 Months Allergies Active Allergy Reactions Criticality Noted Date Comments Amoxicillin-Pot Clavulanate Rash Medium 09/21/20 17 Azithromycin Rash Medium 09/21/2017 Codeine Levofloxacin Rash Medium 09/21/2017 Levothyroxine Sodium Unknown 06/19/2019 Nsaids (Non-Steroidal Anti-I nflammatory Drug) Stomach upset Low Pentazocine Sitagliptin Sulfa (Sulfonamide Antibiotics) Rash Medium 09/07 Medications glimepiride (AMARYL) 2 mg tablet take 1 tablet by oral route every day 0 0 12/03/2014 Active valsartan (DIOVAN) 320 mg tablet take 1 tablet by oral route every day 0 0 12/03/2014 Active levothyroxine (SYNTHROID) 112 mcg tablet take 1 tablet by oral route every day 0 0 12/06/2016 Active clopidogrel (PLAVIX) 75 mg tablet take 1 by Oral route every day 0 0 12/03/2014 Active gabapentin (NEURONTIN) 100 mg capsule take 1 Capsule by oral route 3 times every day 0 0 12/03/2014 Active nebivolol (BYSTOLIC) 10 mg tablet Take 1 tablet (10 mg total) by mouth daily Active cetirizine 10 mg capsule Take by mouth daily Active carisoprodoL (SOMA) 350 mg tablet TAKE ONE AND ONE-HALF TABLET BY MOUTH EVERY DAY NEEDED 05/04/2021 Active Active Problems Problem Noted Date Diagnosed Date COVID-19 09/21/2021 Seizure-like activity 06/26/2021 Right upper quadrant abdominal pain 12/17/2016 Overview (02/11/2017): Right upper quadrant abdominal pain Nausea 12/17/2016 Overview (02/11/2017): Nausea Cerebrovascular accident (CVA) 12/03/2014 Overview (02/10/2017): CVA (cerebral vascular accident) Diabetes mellitus 12/03/2014 Overview (02/11/2017): Diabetes mellitus Hyperlipidemia 12/03/2014 Overview (02/11/2017): Hyperlipidemia Cerebral artery occlusion 11/14/2014 Overview (02/11/2017): Cerebral artery occlusion Type 2 diabetes mellitus 01/01/2014 Overview (02/09/2017): DMII WO CMP UNCNTRLD Hypothyroidism 07/03/2013 Overview (02/09/2017): HYPOTHYROIDISM NOS 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 (02/10/2017): DIS AMINO-ACID METAB NOS Pure hypercholesterolemia 07/04/2012 Overview (02/11/2017): PURE HYPERCHOLESTEROLEM Migraine headache 03/02/2011 Hypertension 02/11/2011 Social History Tobacco Use Types Packs/Day Years Used Date Smoking Tobacco: Never Smokeless Tobacco: Never Tobacco Cessation:Counseling Given: Yes Alcohol Use Standard Drinks/Week Comments No 0 [...] on file Legal Sex Female 5:32 PM CLIENT RELATION SPECIALIST Gender Identity Not on file Sexual Orientation Not on file Last Filed Vital Signs Vital Sign Reading Time Taken Comments Blood Pressure 126/70 11/21/2024 10:48 AM CLIENT RELATION SPECIALIST Pulse 79 11/21/2024 10:48 AM CLIENT RELATION SPECIALIST Temperature 36.6 C (97.9 F) 09/22/2021 11:13 AM CLIENT RELATION SPECIALIST Respiratory Rate 18 09/22/2021 11:13 AM CLIENT RELATION SPECIALIST Oxygen Saturation 96% 10/07/2021 10:58 AM CLIENT RELATION SPECIALIST Inhaled Oxygen Concentration - - Weight 61.7 kg (136 lb) 11/21/2024 10:48 AM CLIENT RELATION SPECIALIST Height 165.1 cm (5' 5 ) 11/21/2024 10:48 AM CLIENT RELATION SPECIALIST Body Mass Index 22.63 11/21/2024 10:48 AM CLIENT RELATION SPECIALIST Plan of Treatment Not on file Procedures Procedure Name Priority Date/Time Associated Diagnosis Comments [place] ARTHROCENTESIS ASPIR&/INJ MAJOR JT/BURSA W/O US Routine 11/21/2024 11:15 AM CLIENT RELATION SPECIALIST Primary osteoarthritis of right knee XR KNEE RIGHT 4 OR MORE VIEWS Schedule Routine, Read Routine (OP Routine) 11/21/2024 10:46 AM CLIENT RELATION SPECIALIST Right knee pain, unspecified chronicity XR PELVIS 1 OR 2 VIEWS Schedule Routine, Read Routine (OP Routine) 11/21/2024 10:46 AM CLIENT RELATION SPECIALIST Right knee pain, unspecified chronicity PLASMA LIPID PANEL Routine 10/11/2014 7: 02 AM CLIENT RELATION SPECIALIST from Last 3 Months or Most Recently Relevant to Health Maintenance Results * [place] ARTHROCENTESIS ASPIR&/INJ MAJOR JT/BURSA W/O US (11/21/2024 11:15 AM CLIENT RELATION SPECIALIST) Narrative Kartik Chapa MD - 11/21/2024 11:15 AM CLIENT RELATION SPECIALIST Tanner Chu PA 11/21/2024 11:33 AM Large Joint (Hip, Knee, Shoulder) Injection: R knee Performed by: Tanner Chu PA Authorized by: Tanner Chu PA Large Joint Injection/Aspiration: Consent Given by: Patient Site marked: the procedure site was marked Timeout: prior to procedure the correct patient, procedure, and site was verified Verbal consent obtained: Yes Supporting Documentation: Indications: Pain Procedure Details: Location: Knee Site: R knee Prep: patient was prepped and draped in usual sterile fashion Needle Size: 22 G Approach: Anterolateral Ultrasound guided: No Fluroscopic guidance: No Medications: 60 mg hyaluronate sodium, stabilized 60 mg/3 mL Patient tolerance: Patient tolerated the procedure well with no immediate complications Tanner BERRY IN CLINIC/BEDSIDE ORDERABLE S Final Result * XR Knee Right 4 or More Views (11/21/2024 10:46 AM CLIENT RELATION SPECIALIST) Anatomical Region Laterality Modality Lower Extremities, Knee Right Digital Radiography Narrative 11/21/2024 10:56 AM CLIENT RELATION SPECIALIST Four views of the right knee are negative for acute fracture dislocation or osseous lesion. Patellofemoral predominant tricompartmental arthritic changes are noted with advanced changes in the patellofemoral compartment mild to moderate changes noted in the medial and lateral compartments. Osteophytes are noted throughout the knee well-maintained medial and lateral joint spaces.. Tanner BERRY IMG XR PROCEDURES Final Res ult * XR Pelvis 1 or 2 Views (11/21/2024 10:46 AM CLIENT RELATION SPECIALIST) Anatomical Region Laterality Modality Body, Pelvis N/A Digital Radiogra phy Narrative 11/21/2024 10:55 AM CLIENT RELATION SPECIALIST AP pelvis is negative for acute fracture dislocation or osseous lesion. Moderate arthritic changes are noted in bilateral femoral acetabular joints. The left hip demonstrates past surgical fixation of a femoral neck fracture with 3 cannulated screws. Tanner BERRY IMG XR PROCEDURES Final Res ult * (ABNORMAL) Plasma lipid panel (10/11/2014 7:02 AM CLIENT RELATION SPECIALIST) Cholesterol 239(H) 100 - 200 mg/dl HISTORICAL RESULTS Triglycerides 184(H) 10 - 150 mg/dl HISTORICAL RESULTS HDL 48 40 - 59 mg/dl HISTORICAL RESULTS LDL 154(H) 60 - 129 mg/dl HISTORICAL RESULTS Plasma 10/11/2014 7:02 AM CLIENT RELATION SPECIALIST Arnaud Munson II, MD LAB BLOOD ORDERABLES Final R esult HISTORICAL RESULTS from Last 3 Months or Most Recently Relevant to Health Maintenance Insurance MEDICARE [facility] MEDICARE SUPPLEMENT INSURANCE [facility]IC[facility] CIGNA TRADITIONAL MEDICARE [facility] MEDICARE SUPPLEMENT Care Teams Telegraphic Instrument Supervisor Relationship Specialty [place] [address] [place] [phone] PCP - General Internal Medicine 11/01/24
--- OUTSIDE RECORDS SUMMARY | 2025-02-08 22:49 | XMS_ITS | Clinical Summary ---
Author Organization [facility] Address [address] [place] [phone] Care Team Providers Care Dog Raiser Name Role Phone Magdiel Springer MD Primary Care Provider [phone] Allergies Active Allergy Reactions Criticality Noted Date [...] PURE HYPERCHOLESTEROLEM Migraine headache 03/02/2011 Hypertension 02/11/2011 Encounters Date Type Department Care Team Description 11/21/2024 11:15 AM DIESEL TECHNOLOGY INSTRUCTOR Office Visit [facility] Orthopedic and Sports Medicine [address] [place] [phone] Tanner Chu PA Primary osteoarthritis of right knee (Primary Dx) 11/21/2024 10:45 AM DIESEL TECHNOLOGY INSTRUCTOR Ancillary Procedure [facility] Imaging at [address] [phone] Right knee pain, unspecified chronicity 11/21/2024 10:40 AM DIESEL TECHNOLOGY INSTRUCTOR Ancillary Procedure [facility] Imaging at [address] [address] Right knee pain, unspecified chronicity from Last 3 Months Surgical History Surgery Date Site/Laterality Comments TONSILLECTOMY Tonsillectomy OTHER SURGICAL HISTORY Status post ERCP with duodenal perforation with peritonitis Medical History Medical History Date Comments Hypertension Hypertension Diabetes mellitus (HCC) Diabetes Hx Other Medical Not Claustropho bic; Comments: [facility] 07/02/2014 - Hx Other Medical DM, HTN, HLD, v ertigo, tremor, hypothyroidism, ner; Comments: [facility] 12/03/2014 - Hx Other Medical stroke; Comment s: [facility] 12/03/2014 - Hx Other Medical endometrial abl ation tonsillectomy foot surgery; Comments: [facility] 12/03/2014 - Thyroid disease TIA (transient ischemic attack) Family History Medical History Relation Name Comments Hypertension Father Hypertension; Stroke Father Stroke; Other Other 1 No family histo ry of Diabetes mellitus; Stroke Other 2 Stroke; Relation Name Status Comments Brother Alive heart attack Father Mother (Age 84) starved to dealth Other 1 Other 2 Sister good health Social History Tobacco Use Types Packs/Day Years [...] on file Legal Sex Female 5:32 PM DIESEL TECHNOLOGY INSTRUCTOR Gender Identity Not on file Sexual Orientation Not on file Obstetrics History Last Filed Vital Signs Vital Sign Reading Time Taken Comments Blood Pressure 126/70 11/21/2024 10:48 AM DIESEL TECHNOLOGY INSTRUCTOR Pulse 79 11/21/2024 10:48 AM DIESEL TECHNOLOGY INSTRUCTOR Temperature 36.6 C (97.9 F) 09/22/2021 11:13 AM DIESEL TECHNOLOGY INSTRUCTOR Respiratory Rate 18 09/22/2021 11:13 AM DIESEL TECHNOLOGY INSTRUCTOR Oxygen Saturation 96% 10/07/2021 10:58 AM DIESEL TECHNOLOGY INSTRUCTOR Inhaled Oxygen Concentration - - Weight 61.7 kg (136 lb) 11/21/2024 10:48 AM DIESEL TECHNOLOGY INSTRUCTOR Height 165.1 cm (5' 5 ) 11/21/2024 10:48 AM DIESEL TECHNOLOGY INSTRUCTOR Body Mass Index 22.63 11/21/2024 10:48 AM DIESEL TECHNOLOGY INSTRUCTOR Plan of Treatment Health Maintenance Due Date Last Done Comments Albumin Creatinine Ratio, Urine 1942 Depression Screening 1942 Hemoglobin A1C 1942 Osteoporosis Screening-Bone Density Scan 1942 eGFR 1942 Dilated Eye Exam 1942 Foot Exam 1942 DTaP/Tdap/Td Vaccine (1 - Tdap) 1953 Hepatitis B Screening 1960 Pneumococcal vaccine 65+ (1 of 2 - PCV) 1961 Zoster Vaccine (1 of 2) 1992 Well Visit 65+ 2007 Lipid Panel 10/11/2015 10/11/2014, 12/09, 01/02/2013 Fall Risk Assessment 09/22/2022 09/22/2021 Influenza Vaccine (#1) 2024 Procedures Procedure Name Priority Date/Time Associated Diagnosis Comments [place] ARTHROCENTESIS ASPIR&/INJ MAJOR JT/BURSA W/O US Routine 11/21/2024 11:15 AM DIESEL TECHNOLOGY INSTRUCTOR Primary osteoarthritis of right knee XR KNEE RIGHT 4 OR MORE VIEWS Schedule Routine, Read Routine (OP Routine) 11/21/2024 10:46 AM DIESEL TECHNOLOGY INSTRUCTOR Right knee pain, unspecified chronicity XR PELVIS 1 OR 2 VIEWS Schedule Routine, Read Routine (OP Routine) 11/21/2024 10:46 AM DIESEL TECHNOLOGY INSTRUCTOR Right knee pain, unspecified chronicity PLASMA LIPID PANEL Routine 10/11/2014 7: 02 AM DIESEL TECHNOLOGY INSTRUCTOR from Last 3 Months or Most Recently Relevant to Health Maintenance Results * [place] ARTHROCENTESIS ASPIR&/INJ MAJOR JT/BURSA W/O US (11/21/2024 11:15 AM DIESEL TECHNOLOGY INSTRUCTOR) Narrative Kartik Chapa MD - 11/21/2024 11:15 AM DIESEL TECHNOLOGY INSTRUCTOR Tanner Chu PA 11/21/2024 11:33 AM Large [...] 4 or More Views (11/21/2024 10:46 AM DIESEL TECHNOLOGY INSTRUCTOR) Anatomical Region Laterality Modality Lower Extremities, Knee Right Digital Radiography Narrative 11/21/2024 10:56 AM DIESEL TECHNOLOGY INSTRUCTOR Four views of the right knee are [...] 1 or 2 Views (11/21/2024 10:46 AM DIESEL TECHNOLOGY INSTRUCTOR) Anatomical Region Laterality Modality Body, Pelvis N/A Digital Radiogra phy Narrative 11/21/2024 10:55 AM DIESEL TECHNOLOGY INSTRUCTOR AP pelvis is negative for acute fracture dislocation or osseous lesion. Moderate arthritic changes are noted in bilateral femoral acetabular joints. The left hip demonstrates past surgical fixation of a femoral neck fracture with 3 cannulated screws. Tanner BERRY IMG XR PROCEDURES Final Res ult * (ABNORMAL) Plasma lipid panel (10/11/2014 7:02 AM DIESEL TECHNOLOGY INSTRUCTOR) Cholesterol 239(H) 100 - 200 mg/dl HISTORICAL RESULTS Triglycerides 184(H) 10 - 150 mg/dl HISTORICAL RESULTS HDL 48 40 - 59 mg/dl HISTORICAL RESULTS LDL 154(H) 60 - 129 mg/dl HISTORICAL RESULTS Plasma 10/11/2014 7:02 AM DIESEL TECHNOLOGY INSTRUCTOR Arnaud Munson II, MD LAB BLOOD ORDERABLES Final R esult HISTORICAL RESULTS from Last 3 Months or Most Recently Relevant to Health Maintenance Insurance MEDICARE [facility] MEDICARE SUPPLEMENT INSURANCE [facility] MEDICARE [facility] MEDICARE [facility] MEDICARE SUPPLEMENT Care Teams Dog Raiser Relationship Specialty Start Date End Date Magdiel Springer MD [address] [place] [address] PCP - General Internal Medicine 11/01/24
--- OUTSIDE RECORDS SUMMARY | 2025-02-08 22:50 | XMS_ITS | Clinical Summary ---
Author Organization [facility] Address [address] [place] [address] Phone Care Team Providers Care Sales Promotion Coordinator Name Role Phone Jamil Sinclair MD Primary Care Provider [phone] Allergies Active Allergy Reactions Criticality Noted Date Comments Amoxicillin-Pot Clavulanate Rash Low 09/21/20 17 Azithromycin Rash Low 09/21/2017 Carvedilol Seizure High 03/22/2024 Codeine Nausea and Vomiting High 09/21/2017 Levofloxacin Rash Low 09/21/2017 Nsaids (Non-Steroidal Anti-Inflammatory Drug) Nausea and Vomiting Low 09/21/2017 Sulfa (Sulfonamide Antibiotics) Rash Low 09/07 Medications levothyroxine 112 mcg tablet Take 112 mcg by mouth daily vascular surgeon. Active gabapentin (NEURONTIN) 100 mg capsule Take 100 mg by mouth 2 times daily. Active valsartan (DIOVAN) 160 mg tablet Take 160 mg by mouth daily. Active glimepiride (AMARYL) 2 mg tablet Take 2 mg by mouth daily with breakfast. Active clopidogrel (PLAVIX) 75 mg Tablet Take 75 mg by mouth daily. Active multivitamin (DAILY-CHAVEZ) tablet Take 1 Tablet by mouth daily. Active EPINEPHrine (EPIPEN) 0.3 mg/0.3 mL Auto-Injector 05/06/2020 Activ e carisoprodoL (SOMA) 350 mg tablet TAKE 1 AND 1/2 TABLETS ONCE DAILY NEEDED 05/05/2020 Active diclofenac Epolamine (FLECTOR) 1.3 % Patch 12 hr APPLY 1 PATCH TWICE DAILY TO MOST PAINFUL AREA 02/29/2020 Active triamcinolone acetonide (KENALOG) 0.1 % Cream apply TO AFFECTED AREA(S) TWICE DAILY DIRECTED 02/27/2020 Active ursodioL (GRIFFIN) 250 mg tablet TAKE ONE TABLET BY MOUTH TWICE DAILY 02/27/2020 Active True Metrix Glucose Test Strip Strip TEST BLOOD SUGAR EVERY DAY 06/03/2020 Active Bystolic 10 mg Tablet 06/17/2020 Active cyanocobalamin, vitamin B-12, 5,000 mcg Capsule Take 1 Capsule by mouth daily. Active Biotin 10,000 mcg Capsule Take 10 mg by mouth daily. Active Cetirizine 10 mg Capsule Take 10 mg by mouth daily. Active hydrALAZINE (APRESOLINE) 25 mg tablet Take 25 mg by mouth 2 times daily. Active acetaminophen (TYLENOL ARTHRITIS) 650 mg Extended Release tablet Take 650 mg by mouth 2 times daily. Active Active Problems Problem Noted Date Diagnosed Date Acute medial meniscus tear of right knee 020 Epigastric pain 09/21/2017 Acute pancreatitis 09/21/2017 Nausea 08/19/2017 Abdominal pain 08/19/2017 Encounters Date Type Department Care Team Description 12/25/2024 External Device Data STL ABSTRACTION Provider, Abstract 12/04/2024 External Device Data STL ABSTRACTION Provider, Abstract 11/28/2024 External Device Data STL ABSTRACTION Provider, Abstract 11/28/2024 External Device Data STL ABSTRACTION Provider, Abstract from Last 3 Months Family History Medical History Relation Name Comments Colon Cancer Maternal Grandmother Celiac Disease Neg Hx Crohn's Disease Neg Hx Inflammatory Bowel Disease Neg Hx Ulcerative Colitis Neg Hx Relation Name Status Comments Maternal Grandmother Social History Tobacco Use Types Packs/Day Years Used Date Smoking Tobacco: Never Smokeless Tobacco: Never Alcohol Use Standard Drinks/Week Comments No 0 (1 standard drink = 0.6 oz pur e alcohol) Comments No Sex and Gender Information Value Date Recorded Sex Assigned at Not on file Legal Sex Female 1:54 PM CDT Gender Identity Not on file Sexual Orientation Not on file Last Filed Vital Signs Vital Sign Reading Time Taken Comments Blood Pressure 140/70 03/29/2024 9:14 AM CDT Pulse 71 01/26/2021 8:23 AM CDT Temperature 36.6 C (97.8 F) 07/07/2021 5:56 PM CDT Respiratory Rate 16 07/07/2021 5:56 PM CDT Oxygen Saturation 97% 07/07/2021 5:56 PM CDT Inhaled Oxygen Concentration - - Weight 62.6 kg (138 lb) 03/29/2024 9:14 AM CDT Height 165.1 cm (5' 5 ) 03/29/2024 9:14 AM CDT Body Mass Index 22.96 03/29/2024 9:14 AM CDT Plan of Treatment Health Maintenance Due Date Last Done Comments DIABETES ANNUAL FOOT EXAM 1960 DIABETES MICROALBUMIN ANNUAL SCREEN 1960 LDL CHOLESTEROL ANNUAL 1960 DTAP/TDAP/TD VACCINES (1 - Tdap) 1961 PNEUMOCOCCAL VACCINE 50+ YEA RS (1 of 2 - PCV) 1961 ZOSTER VACCINE (1 of 2) 1992 RSV VACCINE (60+ or ) (1 - 1-dose 75+ series) 2017 DIABETES HBA1C Q 6 MONTHS 05/23/20222021, 08/10/2021, 06/30/2020, Additional history exists DIABETES ANNUAL RETINAL EXAM 10/26/2022 10/26/2021, 01/02/2015 INFLUENZA VACCINE (#1) 2024 COLORECTAL SCREENING Discontinued 07/30/2019, 02/27/2014, 02/27/2014 Colorectal Cancer Screening Discontinued OSTEOPOROSIS SCREENING Completed 03/26/2024 FIT-DNA Q 3 years Discontinued FIT/FOBT Q 1 year Discontinued Flex Sig/CT Colonography Q 5 years Discontinued Medical Devices Implanted Type Area Stone Derrickman And Rigger Device Identifier Shelf Expiration Date Model / Serial / Lot Stent Pncrtc Frmn Flx 5fr 5cm 6552 - [id number] Implanted:Qty : 1 on 09/21/2017 by Gregor Lieberman MD at [facility] Stent N/A: Pancreas [employer] [id number] 03/07/2022 [id number] / / [id number] Stent Bili Viabil [id number] - [id number] Implanted:Qty : 1 on 09/21/2017 by Gregor Lieberman MD at [facility] Stent N/A: Bile Duct [employer] 05/18/2020 [id number] / [id number] / Procedures Procedure Name Priority Date/Time Associated Diagnosis Comments HEMOGLOBIN A1C Routine 09/22/2017 7:25 AM SIGNAL INTELLIGENCE ANALYST from Last 3 Months or Most Recently Relevant to Health Maintenance Results * (ABNORMAL) HEMOGLOBIN A1C (09/22/2017 7:25 AM SIGNAL INTELLIGENCE ANALYST) HEMOGLOBIN A1C 6.6(H) 4.0 - 6.0 % 09/22/2017 4:52 PM SIGNAL INTELLIGENCE ANALYST [facility] EST. AVG GLUCOSE, A1C 143 mg/dL 09/22/2017 4:52 PM SIGNAL INTELLIGENCE ANALYST [facility] Blood Collection / Unknown 09/22/2017 7:25 AM SIGNAL INTELLIGENCE ANALYST 09/22/2017 4:34 PM SIGNAL INTELLIGENCE ANALYST Gregor Lieberman MD CHEMISTRY ORDERABLES Final R esult [facility] CLIA# [id number] [address] [place] [address] from Last 3 Months or Most Recently Relevant to Health Maintenance Insurance MEDICARE PART A AND B BC SUPP Advance Directives For more information, please contact: [phone] * Full Code (Latest Code Status on File) Date Activated Date Inactivated Comments 11/16/2017 2:30 PM 11/16/2017 7:11 PM * Full Code Date Activated Date Inactivated Comments 09/21/2017 2:32 PM 09/23/2017 12:23 PM * Full Code Date Activated Date Inactivated Comments 09/21/2017 8:04 AM 09/21/2017 2:32 PM Care Teams Sales Promotion Coordinator Relationship Specialty [place] [address] [facility] [address] [place] [address] PCP - General Internal Medicine 08/19/17
[2025-02-08 23:00] VITALS: BP 130/66; PULSE 81; RESP 16; O2SAT 97
--- OUTSIDE RECORDS SUMMARY | 2025-02-08 23:20 | XMS_ITS | CONTINUITY OF CARE DOCUMENT ---
Author Name damaris ocampo Address Unknown Organization [facility] Address [address] [address] [address] [place] [address] Phone [phone] Care Team Providers Care Insulation Engineman Name Role Phone Abdi PATIÑO, Ziggy Unavailable INSURANCE PROVIDERS Payer name Policy type / Coverage type [place] red green party ID [employer] Commercial insura wae [employer] [id number] [place] MED[place]ARE Medicare [id number]
--- OUTSIDE RECORDS SUMMARY | 2025-02-08 23:20 | XMS_ITS | Continuity of Care Document ---
Author Organization [facility] Address [address] [place] [address] Phone Care Team Providers Care Border Machine Operator Name Role Phone Yves Reveles MD Unavailable [...] Diagnoses Date Provider Providers Copied on Encounter [facility], [address] [place], [address], [place] tel:[phone] [facility] No Information 4 Abdirizak Marinelli. [address] [place], [place], [address] , [place]. tel:[phone] [facility], [address], [place], [place], [address], [place] tel:[phone] [facility] No Information 4 Abdirizak Marinelli. [address], [address], [place], [place], [address] , [place]. tel:[phone] Referring Provider: Yves Reveles, [address], [place], [place], [address]. tel:[phone] OFFICE/OUTPA TIENT VISIT, EST [facility], [address], [place], [place], [address], [place] tel:[phone] [facility] renal cyst (chief complaint)ost eoprosis (chief complaint)UTI (chief complaint)dani k pain (chief complaint) OsteoporosisCyst ic kidney disease, unspecifiedUrina ry Tract InfectionLumbago Jul- 4 Abdirizak Marinelli. [address], [address], [place], [place], [address] , [place]. tel:[phone] Referring Provider: Yves Reveles, [address], [place], [place], [address]. tel:[phone] [facility], [address], [place], [place], [address], [place] tel:[phone] [facility] Cystic kidney disease, unspecified 4 Abdirizak Marinelli. [address], [place], [place], [address] , [place]. tel:[phone] Referring Provider: Yves Reveles, [address], [place], [place], [address]. tel:[phone] OFFICE/OUTPA TIENT VISIT, EST [facility], [address], [place], [place], [address], [place] tel:[phone] [facility] abdominal pain (chief complaint) Abdominal Pain Jan- 4 Abdirizak Marinelli. [address], [place], [place], [address] , [place]. tel:[phone] Referring Provider: Yves Reveles, [address], [place], [place], [address]. tel:[phone] OFFICE/OUTPA TIENT VISIT, [facility], [address], [place], [place], [address], [place] tel:[phone] [facility] left foot pain (chief complaint) Lesion of plantar nerve 4 Abdirizak Marinelli. [address], [address], [place], [place], [address] , [place]. tel:[phone] Referring Provider: Yves Reveles, [address], [place], [place], [address]. tel:[phone] [facility], [address], [place], [address], [place] tel:[phone] [facility] No Information 3 Abdirizak Marinelli. [address], [address], [place], [place], [address] , [place]. [phone] OFFICE/OUTPA TIENT VISIT, [facility], [address], [place], [place], [address], [place] tel:[phone] [facility] chest pain (chief complaint)DM (chief complaint)ost eoporosis (chief complaint) OsteoporosisDiab etes Mellitus Type 2, UncomplicatedHer editary sensory neuropathyChest Tightness 3 Abdirizak Marinelli. [address], [address], [place], [place], [address] , [place]. [phone] [facility], [address], [place], [place], [address], [place] tel:[phone] [facility] cerumen (chief complaint) Impacted cerumen 3 Abdirizak Marinelli. [address], [address], [place], [place], [address] , [place]. [phone] Referring Provider: Yves Reveles, [address], [place], [place], [address]. tel:[phone] OFFICE/OUTPA TIENT VISIT, [facility], [address], [place], [place], [address], tel:[phone] [facility] osteoporosis (chief complaint)ear pain (chief complaint) OsteoporosisImpa cted cerumenOtalgia, unspecified 3 Abdirizak Marinelli. [address], [place], [place], [address] , [place]. [phone] Referring Provider: Windy [address], [place], [place], [address]. tel:[phone] OFFICE/OUTPA TIENT VISIT, [facility], [address], [place], [place], [address], [place] tel:[phone] [facility] DM (chief complaint)Hyp othyroidism (chief complaint)dani k pain (chief complaint) Diabetes Mellitus Type 2, UncomplicatedHyp othyroidismHered itary sensory neuropathy 3 Abdirizak Marinelli. [address], [place], [place], [address] , [place]. [phone] Referring Provider: Windy Forrester [facility] [address], [place], [place], [address]. tel:[phone] Family History Family Member Type Diagnosis Age At Onset Father Problem (finding) Coronary artery disease Mother Problem (finding) at care home Brother Problem (finding) Coronary artery disease Payers Payer name Insurance type Covered republican ID Authoriza tion(s) No Information Social History [...]
--- OUTSIDE RECORDS SUMMARY | 2025-02-08 23:20 | XMS_ITS | Clinical Summary ---
Author Organization [facility] Address [address] [place] [address] Care Team Providers Care Pt Escort Name Role Phone Unavailable Primary Care Provider Unavailabl e Source Comments [facility],non-owned Affiliates and Associated Physician Practices is amultiple site organization consisting of ambulatory clinics and hospital sitesin [place], [place], [place] and [place]. This disclosure is being madepursuant to the Care Everywhere program and may not contain all information available regarding this patient. Last updated 18.[facility] Allergies No known active allergies Medications * [...] Personal/Family Self [address] [place] [address]
--- OUTSIDE RECORDS SUMMARY | 2025-02-08 23:20 | XMS_ITS | Encounter Summary ---
Author Organization [facility] Address [address] [place] [address] Care Team Providers Care Produce Team Member Name Role Phone Jamil Sinclair MD Primary Care Provider [phone] Encounter Details Date Type Department Care Team (Late st Contact Info) Description 12/23/2016 11:45 PM WAITER/WAITRESS Hospital Encounter [facility] [address] [place], [place] [id number] [place] [address] [facility] [address] [place] [address] Social History Tobacco Use Types [...] on file Legal Sex Female 5:32 PM WAITER/WAITRESS Gender Identity Not on file Sexual Orientation [...] Patient: HAWA MORRIS Service Date: 12/24/2016 Account: [id number] Room No: : 1940 Patient Type: IP [...] was terminated and I placed a 4- Hungarian x 4 cm stent in the pancreatic [...] Mili Powers MD On 12/25/2016 08:50 AM WAITER/WAITRESS Mili Powers M.D. OCO/ams TD: 12/24/2016 19:53 documented in this encounter Plan of Treatment Not on file documented as of this encounter Visit Diagnoses Not on filedocumented in this encounter Care Teams Produce Team Member Relationship Specialty [place] [address] [place] [address] PCP - General 12/23/16 02/03/17 documented as of this encounter
--- OUTSIDE RECORDS SUMMARY | 2025-02-08 23:20 | XMS_ITS | Continuity of Care Document ---
Author Organization [facility] Address [address] [place] [address] [place] [address] Phone Care Team Providers Care Vp Analytics Name Role Phone Sridhar Miles Unavailable Unavailable Advance Directives Directive Yes / No Effective Date File Name No Information Encounters Encounter Description Practice Location Reason(s) For Visit Diagnoses Date Provider Providers Copied on Encounter [facility], [address], [place], [place], [address], [place] tel:[phone] [facility] No Information Jd Waller. [address] [place], [address], [place]. tel:[phone] Family History Family Member Type Diagnosis Age At Onset No Information Payers Payer name Insurance type Covered green [...]
--- OUTSIDE RECORDS SUMMARY | 2025-02-08 23:20 | XMS_ITS | Referral Summary ---
Author Organization [facility] Address [address] [place] [address] Care Team Providers Care Automotive Parts Clerk Name Role Phone Magdiel Springer MD Primary Care Provider Encounters Date Type Department Care Team Description 11/21/2024 10:45 AM INVESTIGATIVE AGENT Ancillary Procedure [facility] Imaging at [address] [phone] Right knee pain, unspecified chronicity 11/21/2024 10:40 AM INVESTIGATIVE AGENT Ancillary Procedure [facility] Imaging at [address] [phone] Right knee pain, unspecified chronicity 11/21/2024 11:15 AM INVESTIGATIVE AGENT Office Visit [facility]opedic [facility] [address] [place] [phone] Tanner Chu PA Primary osteoarthritis of right [...] on file Legal Sex Female 5:32 PM INVESTIGATIVE AGENT Gender Identity Not on file Sexual Orientation Not on file Last Filed Vital Signs Vital Sign Reading Time Taken Comments Blood Pressure 126/70 11/21/2024 10:48 AM INVESTIGATIVE AGENT Pulse 79 11/21/2024 10:48 AM INVESTIGATIVE AGENT Temperature 36.6 C (97.9 F) 09/22/2021 11:13 AM INVESTIGATIVE AGENT Respiratory Rate 18 09/22/2021 11:13 AM INVESTIGATIVE AGENT Oxygen Saturation 96% 10/07/2021 10:58 AM INVESTIGATIVE AGENT Inhaled Oxygen Concentration - - Weight 61.7 kg (136 lb) 11/21/2024 10:48 AM INVESTIGATIVE AGENT Height 165.1 cm (5' 5 ) 11/21/2024 10:48 AM INVESTIGATIVE AGENT Body Mass Index 22.63 11/21/2024 10:48 AM INVESTIGATIVE AGENT Plan of Treatment Not on file Procedures Procedure Name Priority Date/Time Associated Diagnosis Comments [place] ARTHROCENTESIS ASPIR&/INJ MAJOR JT/BURSA W/O US Routine 11/21/2024 11:15 AM INVESTIGATIVE AGENT Primary osteoarthritis of right knee XR KNEE RIGHT 4 OR MORE VIEWS Schedule Routine, Read Routine (OP Routine) 11/21/2024 10:46 AM INVESTIGATIVE AGENT Right knee pain, unspecified chronicity XR PELVIS 1 OR 2 VIEWS Schedule Routine, Read Routine (OP Routine) 11/21/2024 10:46 AM INVESTIGATIVE AGENT Right knee pain, unspecified chronicity PLASMA LIPID PANEL Routine 10/11/2014 7: 02 AM INVESTIGATIVE AGENT from Last 3 Months or Most Recently Relevant to Health Maintenance Results * [place] ARTHROCENTESIS ASPIR&/INJ MAJOR JT/BURSA W/O US (11/21/2024 11:15 AM INVESTIGATIVE AGENT) Narrative Kartik Chapa MD - 11/21/2024 11:15 AM INVESTIGATIVE AGENT Tanner Chu PA 11/21/2024 11:33 AM Large [...] 4 or More Views (11/21/2024 10:46 AM INVESTIGATIVE AGENT) Anatomical Region Laterality Modality Lower Extremities, Knee Right Digital Radiography Narrative 11/21/2024 10:56 AM INVESTIGATIVE AGENT Four views of the right knee are [...] 1 or 2 Views (11/21/2024 10:46 AM INVESTIGATIVE AGENT) Anatomical Region Laterality Modality Body, Pelvis N/A Digital Radiogra phy Narrative 11/21/2024 10:55 AM INVESTIGATIVE AGENT AP pelvis is negative for acute fracture dislocation or osseous lesion. Moderate arthritic changes are noted in bilateral femoral acetabular joints. The left hip demonstrates past surgical fixation of a femoral neck fracture with 3 cannulated screws. Tanner BERRY IMG XR PROCEDURES Final Res ult * (ABNORMAL) Plasma lipid panel (10/11/2014 7:02 AM INVESTIGATIVE AGENT) Cholesterol 239(H) 100 - 200 mg/dl HISTORICAL RESULTS Triglycerides 184(H) 10 - 150 mg/dl HISTORICAL RESULTS HDL 48 40 - 59 mg/dl HISTORICAL RESULTS LDL 154(H) 60 - 129 mg/dl HISTORICAL RESULTS Plasma 10/11/2014 7:02 AM INVESTIGATIVE AGENT Arnaud Munson II, MD LAB BLOOD ORDERABLES Final R esult HISTORICAL RESULTS from Last 3 Months or Most Recently Relevant to Health Maintenance Insurance MEDICARE [facility] MEDICARE SUPPLEMENT INSURANCE [facility] CIGNA TRADITIONAL MEDICARE [facility] MEDICARE SUPPLEMENT Care Teams Automotive Parts Clerk Relationship Specialty [place] [address] [place] [address] PCP - General Internal Medicine 11/01/24
--- OUTSIDE RECORDS SUMMARY | 2025-02-08 23:20 | XMS_ITS | Clinical Summary ---
Author Organization [facility] Address [address] [place] [address] Phone Care Team Providers Care Information Systems Operator Name Role Phone Jamil Sinclair MD Primary Care Provider [phone] Allergies Active Allergy Reactions Criticality Noted Date Comments Amoxicillin-Pot Clavulanate Rash Low 09/21/20 17 Azithromycin Rash Low 09/21/2017 Carvedilol Seizure High 03/22/2024 Codeine Nausea and Vomiting High 09/21/2017 Levofloxacin Rash Low 09/21/2017 Nsaids (Non-Steroidal Anti-Inflammatory Drug) Nausea and Vomiting Low 09/21/2017 Sulfa (Sulfonamide Antibiotics) Rash Low 09/07 Medications levothyroxine 112 mcg tablet Take 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 Active gabapentin (NEURONTIN) 100 mg capsule Take [...] years Discontinued Medical Devices Implanted Type Area Category Development Manager Device Identifier Shelf Expiration Date Model / Serial / Lot Stent Pncrtc Frmn Flx 5fr 5cm 6552 - [id number] Implanted:Qty : 1 on 09/21/2017 by Gregor Lieberman MD at [facility] Stent N/A: Pancreas [employer] [id number] 03/07/2022 6552 / / [id number] Stent Bili Viabil [id number] - [id number] Implanted:Qty : 1 on 09/21/2017 by Gregor Lieberman MD at [facility] Stent N/A: Bile Duct [employer] 05/18/2020 [id number] / [id number] / Procedures Procedure Name Priority Date/Time Associated Diagnosis Comments HEMOGLOBIN A1C Routine 09/22/2017 7:25 AM CHARGE ENTRY CLERK from Last 3 Months or Most Recently Relevant to Health Maintenance Results * (ABNORMAL) HEMOGLOBIN A1C (09/22/2017 7:25 AM CHARGE ENTRY CLERK) HEMOGLOBIN A1C 6.6(H) 4.0 - 6.0 % 09/22/2017 4:52 PM CHARGE ENTRY CLERK [facility] EST. AVG GLUCOSE, A1C 143 mg/dL 09/22/2017 4:52 PM CHARGE ENTRY CLERK [facility] Blood Collection / Unknown 09/22/2017 7:25 AM CHARGE ENTRY CLERK 09/22/2017 4:34 PM CHARGE ENTRY CLERK Gregor Lieberman MD CHEMISTRY ORDERABLES Final R esult [facility] CLIA# [id number] [address] [place] [address] from Last 3 Months or Most Recently Relevant to Health Maintenance Insurance MEDICARE PART A AND B BC SUPP Advance Directives For more information, please contact: [phone] * Full Code (Latest Code Status on File) Date Activated Date Inactivated Comments 11/16/2017 2:30 PM 11/16/2017 7:11 PM * Full Code Date Activated Date Inactivated Comments 09/21/2017 2:32 PM 09/23/2017 12:23 PM * Full Code Date Activated Date Inactivated Comments 09/21/2017 8:04 AM 09/21/2017 2:32 PM Care Teams Information Systems Operator Relationship Specialty [place] [address] [facility] [address] [place] [address] PCP - General Internal Medicine 08/19/17
--- OUTSIDE RECORDS SUMMARY | 2025-02-08 23:20 | XMS_ITS | Clinical Summary ---
Author Organization [facility] Address [address] [place] [id number] Care Team Providers Care Services Executive Name Role Phone Magdiel Springer MD Primary Care Provider Allergies Active Allergy Reactions Criticality Noted Date [...] Department Care Team Description 11/21/2024 11:15 AM VICE PRESIDENT LENDING Office Visit [facility] Orthopedic and Sports Medicine [address] [place] [phone] Tanner Chu PA Primary osteoarthritis of right knee (Primary Dx) 11/21/2024 10:45 AM VICE PRESIDENT LENDING Ancillary Procedure [facility] Imaging at [address] [phone] Right knee pain, unspecified chronicity 11/21/2024 10:40 AM VICE PRESIDENT LENDING Ancillary Procedure [facility] Imaging at [address] [phone] Right knee pain, unspecified chronicity from Last 3 Months Surgical History Surgery Date Site/Laterality Comments TONSILLECTOMY Tonsillectomy OTHER SURGICAL HISTORY Status post ERCP with duodenal perforation with peritonitis Medical History Medical History Date Comments Hypertension Hypertension Diabetes mellitus (HCC) Diabetes Hx Other Medical Not Claustropho bic; Comments: [facility] 07/02/2014 - Hx Other Medical DM, HTN, HLD, v ertigo, tremor, hypothyroidism, ner; Comments: [facility] 12/03/2014 - Hx Other Medical stroke; Comment s: [facility] 12/03/2014 - Hx Other Medical endometrial abl ation tonsillectomy foot surgery; Comments: [facility] 12/03/2014 - Thyroid disease TIA (transient ischemic [...] on file Legal Sex Female 5:32 PM VICE PRESIDENT LENDING Gender Identity Not on file Sexual Orientation Not on file Obstetrics History Last Filed Vital Signs Vital Sign Reading Time Taken Comments Blood Pressure 126/70 11/21/2024 10:48 AM VICE PRESIDENT LENDING Pulse 79 11/21/2024 10:48 AM VICE PRESIDENT LENDING Temperature 36.6 C (97.9 F) 09/22/2021 11:13 AM VICE PRESIDENT LENDING Respiratory Rate 18 09/22/2021 11:13 AM VICE PRESIDENT LENDING Oxygen Saturation 96% 10/07/2021 10:58 AM VICE PRESIDENT LENDING Inhaled Oxygen Concentration - - Weight 61.7 kg (136 lb) 11/21/2024 10:48 AM VICE PRESIDENT LENDING Height 165.1 cm (5' 5 ) 11/21/2024 10:48 AM VICE PRESIDENT LENDING Body Mass Index 22.63 11/21/2024 10:48 AM VICE PRESIDENT LENDING Plan of Treatment Health Maintenance Due Date [...] Procedure Name Priority Date/Time Associated Diagnosis Comments NC ARTHROCENTESIS ASPIR&/INJ MAJOR JT/BURSA W/O US Routine 11/21/2024 11:15 AM VICE PRESIDENT LENDING Primary osteoarthritis of right knee XR KNEE RIGHT 4 OR MORE VIEWS Schedule Routine, Read Routine (OP Routine) 11/21/2024 10:46 AM VICE PRESIDENT LENDING Right knee pain, unspecified chronicity XR PELVIS 1 OR 2 VIEWS Schedule Routine, Read Routine (OP Routine) 11/21/2024 10:46 AM VICE PRESIDENT LENDING Right knee pain, unspecified chronicity PLASMA LIPID PANEL Routine 10/11/2014 7: 02 AM VICE PRESIDENT LENDING from Last 3 Months or Most Recently Relevant to Health Maintenance Results * NC ARTHROCENTESIS ASPIR&/INJ MAJOR JT/BURSA W/O US (11/21/2024 11:15 AM VICE PRESIDENT LENDING) Narrative Kartik Chapa MD - 11/21/2024 11:15 AM VICE PRESIDENT LENDING Tanner Chu PA 11/21/2024 11:33 AM Large [...] 4 or More Views (11/21/2024 10:46 AM VICE PRESIDENT LENDING) Anatomical Region Laterality Modality Lower Extremities, Knee Right Digital Radiography Narrative 11/21/2024 10:56 AM VICE PRESIDENT LENDING Four views of the right knee are [...] 1 or 2 Views (11/21/2024 10:46 AM VICE PRESIDENT LENDING) Anatomical Region Laterality Modality Body, Pelvis N/A Digital Radiogra phy Narrative 11/21/2024 10:55 AM VICE PRESIDENT LENDING AP pelvis is negative for acute fracture dislocation or osseous lesion. Moderate arthritic changes are noted in bilateral femoral acetabular joints. The left hip demonstrates past surgical fixation of a femoral neck fracture with 3 cannulated screws. Tanner BERRY IMG XR PROCEDURES Final Res ult * (ABNORMAL) Plasma lipid panel (10/11/2014 7:02 AM VICE PRESIDENT LENDING) Cholesterol 239(H) 100 - 200 mg/dl HISTORICAL RESULTS Triglycerides 184(H) 10 - 150 mg/dl HISTORICAL RESULTS HDL 48 40 - 59 mg/dl HISTORICAL RESULTS LDL 154(H) 60 - 129 mg/dl HISTORICAL RESULTS Plasma 10/11/2014 7:02 AM VICE PRESIDENT LENDING Arnaud Munson II, MD LAB BLOOD ORDERABLES Final R esult HISTORICAL RESULTS from Last 3 Months or Most Recently Relevant to Health Maintenance Insurance MEDICARE [facility] MEDICARE SUPPLEMENT INSURANCE [facility]IC[facility] MEDICARE [facility] MEDICARE SUPPLEMENT Care Teams Services Executive Relationship Specialty Start Date End Date Magdiel Springer MD [address] [place] [address] PCP - General Internal Medicine 11/01/24
--- NOTE | 2025-02-08 23:43 | ECG_ITS ---
Test Date: 2025-02-09 00:50:04 Measurements Intervals [place] Rate: 72 P: 53 ID: [id number] QRS: 3 QRSD: 114 T: 13 QT: 392 QTc: 431 Interpretive Statements SINUS RHYTHM POSSIBLE LEFT ATRIAL ENLARGEMENT INTRAVENTRICULAR CONDUCTION DELAY BORDERLINE R WAVE PROGRESSION, ANTERIOR LEADS INFERIOR ST ELEVATION MYOCARDIAL INFARCT- PROBABLY RECENT ABNORMAL ECG Compared to ECG 02/09/2025 00:00:07 NO SIGNIFICANT CHANGE Electronically Signed On 02-09-2025 07:08:15 CDT by Panchito Garcia D.O.
--- NOTE | 2025-02-08 23:46 | ED_ITS ---
HPI - Extremity Injury (Upper) General Chief Complaint: Extremity Injury, Upper <Ita Gao APRN - Last Filed: 02/09/25 22:14> Stated Complaint: Pain to left shoulder <Ita Gao APRN - Last Filed: 02/09/25 22:14> Time Seen by Provider: 02/08/25 23:08 <Ita Gao APRN - Last Filed: 02/09/25 22:14> History of Present Illness HPI narrative: Patient is a 84-year-old female who presents to the ER with a 4- 5 day history of left shoulder pain. She reports she recently had a upper respiratory infection and was placed on azithromycin. Patient reports she has been lying around more due to her recent URI. She is wondering if she recently laid on her shoulder wrong because it has been sore without recent injury. Pt reports the pain increases with movement. She endorses a history of high blood pressure, diabetes, and pancreatitis. Patient denies any recent fevers, chest pain, one-sided weakness/numbness/tingling, or shortness of breath. <Ita Gao APRN - Last Filed: 02/09/25 22:14> Related Data Home Medications: Home Medications ?Medication ?Instructions ?Recorded ?Confirmed ?Last Taken ?Type gabapentin 100 mg capsule 100 mg PO BID 05/09/20 02/09/25 02/09/25 History glimepiride 2 mg tablet 2 mg PO BID 05/09/20 02/09/25 02/09/25 History levothyroxine 112 mcg tablet 125 mcg PO DAILY 05/09/20 02/09/25 02/08/25 History (Synthroid) valsartan 320 mg tablet 320 mg PO DAILY 05/09/20 02/09/25 02/09/25 History cetirizine 10 mg capsule (All Day 10 mg PO DAILY 07/09/21 02/09/25 02/09/25 History Allergy (cetirizine)) diclofenac epolamine 1.3 % 1 patch transdermal BID PRN Back 07/09/21 02/09/25 02/09/25 History transdermal 12 hour patch Pain carisoprodol 350 mg tablet 350 mg PO BID 07/26/22 02/09/25 02/09/25 History hydralazine 25 mg tablet 25 mg PO BID 07/26/22 02/09/25 02/09/25 History nebivolol 10 mg tablet 10 mg PO DAILY 07/26/22 02/09/25 02/09/25 History cholecalciferol (vitamin D3) 25 5,000 unit PO DAILY 02/09/25 02/09/25 02/08/25 History mcg (1,000 unit) tablet (Vitamin D3) vitamin E 268 mg (400 unit) capsule 536 mg PO DAILY 02/09/25 02/09/25 02/08/25 History <Ita Gao, REAL ESTATE AGENT - Last Filed: 02/09/25 22:14> Allergies/Adverse Reactions: Allergies Allergy/AdvReac Type Severity Reaction Status Date / Time pentazocine Allergy Severe Unconscious Verified 11/01/23 07:57 codeine AdvReac Intermediate SEVERE Verified 11/01/23 07:57 NAUSEA/VOMITING NSAIDS (Non-Steroidal AdvReac Intermediate NAUSEA AND Verified 11/01/23 07:57 Anti-Inflamma GASTRIC PAIN meperidine AdvReac Mild Nausea Verified 11/01/23 07:57 <Ita Gao, REAL ESTATE AGENT - Last Filed: 02/09/25 22:14> Review of Systems 2 Review of Systems: All systems reviewed & are unremarkable except as noted in HPI and below <Ita Gao APRN - Last Filed: 02/09/25 22:14> [facility] Past Medical History Medical History: Medical History Encounter for Papanicolaou smear for cervical cancer screening Screening mammogram, encounter for Injury of left shoulder serratus anterior strain January 2023 Sacral insufficiency fracture Hypercholesterolemia Hypothyroidism Pancreatitis Diverticulitis CVA (cerebral vascular accident) (~2013) Hypertension Diabetes <Ita Gao APRN - Last Filed: 02/09/25 22:14> Surgical History Surgical History: Surgical History History of gynecological procedure Endometrial ablation 20 yrs ago History of orthopedic surgery operation on thumb (tindenitis) History of orthopedic surgery Foot operation X 2 14-15 yrs ago History of hysteroscopy D&C x 3 in 40's History of hysteroscopy (07/08/17) hysteroscopy D&C - polypectomy; postmenopausal bleeding , endometrial hypertrophy, endometrial polyp- Benign Hx laparoscopic cholecystectomy Lap Deya with IOC on 07/28/22 History of ERCP (12/23/16) x2 with stents placed and subsequently removed, 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 <Ita Gao, REAL ESTATE AGENT - Last Filed: 02/09/25 22:14> Social History Social History: Social History Smoking status: Never smoker Second hand tobacco smoke exposure: No Alcohol intake: never Substance use: never Substance use type: does not use Do You Feel Safe in your Home?: Yes Lack of Transportation: No Lack of Food: Never True Current Housing: I Have Housing Concerned About Future Housing: No Difficulty Paying Gas/Electric Bills: No Difficulty Paying for Meds: No Currently Unemployed: No Education: High School Diploma/GED Difficulty w/ Childcare or Family Care: No Living arrangements: other Additional living arrangements comments: Occupation/Education: retired Gender identity (if verbalized by the patient): Female Sexual Orientation (if Verbalized by the Patient): Straight or Heterosexual Spiritual care concerns: No <Ita Gao, REAL ESTATE AGENT - Last Filed: 02/09/25 22:14> Exam 2 Narrative: GENERAL: Well appearing, well-nourished, non-toxic, in no acute distress. HEAD: Normocephalic, atraumatic. NECK: Supple. No adenopathy, no masses. RESPIRATORY: Airway patent, respirations nonlabored. Clear to auscultation bilaterally, no rales, rhonchi, wheezing. CARDIOVASCULAR: Regular rate and rhythm without murmurs, rubs, or gallops. Peripheral pulses 2+ and equal bilaterally. ABDOMINAL: Soft, nontender, nondistended, no hepatosplenomegaly. Normoactive BS. MUSCULOSKELETAL: Moves all extremities. Strength/ROM intact without gross deformities. Negative drop arm test. + increased pain with manipulation and movement above 45 degrees. SKIN: Warm, dry, normal color. No rashes. NEURO: A&O X3. Speech clear. Cranial nerves II-XII intact. No ataxic movements. PSYCHIATRIC: Appropriate mood and affect. Normal interaction. <Ita Gao APRN - Last Filed: 02/09/25 22:14> Course HEEL NAILING MACHINE OPERATOR/PA Physician Supervision Initial EKG was signed by myself concerning for nonspecific findings but not indicative of a STEMI. As soon as I learned that patient (who was being seen by IAN) had a troponin >15, I advised repeating a stat EKG and obtaining prior EKG. THere are concerns for elevations in inferior leads so recommended STEMI activation. HEEL NAILING MACHINE OPERATOR discussed case with interentional per assessment nurse who concurred. Heparin bolus, ASA, and Brilinta ordered. Altogether, i was available for consultation and was involved in patient's care and management but other than seeing patient from the hallway at bedside, did not physically examine patient. Later learned that patient transferred due to difficulties with cardiac catheterization. <Neva Raza MD - Last Filed: 02/10/25 11:03> Vital Signs Vital signs: Vital Signs Temperature 97.8 F 02/08/25 22:49 Pulse Rate 80 02/08/25 22:49 Respiratory Rate 14 02/08/25 22:49 Blood Pressure 123/53 L 02/08/25 22:49 Pulse Oximetry 100 02/08/25 22:49 Oxygen Delivery Room Air 02/08/25 22:49 Temperature 98.2 F 02/09/25 04:03 Pulse Rate 68 02/09/25 07:24 Respiratory Rate 19 02/09/25 07:00 Blood Pressure 117/56 L 02/09/25 07:00 Pulse Oximetry 98 02/09/25 07:00 Oxygen Delivery Room Air 02/09/25 04:00 <Ita Gao APRN - Last Filed: 02/09/25 22:14> Vital Signs Temperature 97.8 F 02/08/25 22:49 Pulse Rate 80 02/08/25 22:49 Respiratory Rate 14 02/08/25 22:49 Blood Pressure 123/53 L 02/08/25 22:49 Pulse Oximetry 100 02/08/25 22:49 Oxygen Delivery Room Air 02/08/25 22:49 Temperature 98.2 F 02/09/25 04:03 Pulse Rate 68 02/09/25 07:24 Respiratory Rate 19 02/09/25 07:00 Blood Pressure 117/56 L 02/09/25 07:00 Pulse Oximetry 98 02/09/25 07:00 Oxygen Delivery Room Air 02/09/25 04:00 <Neva aRza MD - Last Filed: 02/10/25 11:03> MDM - Extremity Injury (Upper) MDM Narrative Medical decision making narrative: Patient is a 84-year-old female who presents to the ER with a 4- 5 day history of left shoulder pain. She reports she recently had a upper respiratory infection and was placed on azithromycin. Patient reports she has been lying around more due to her recent URI. She is wondering if she recently laid on her shoulder wrong because it has been sore without recent injury. Pt reports the pain increases with movement. She endorses a history of high blood pressure, diabetes, and pancreatitis. Patient denies any recent fevers, chest pain, one-sided weakness/numbness/tingling, or shortness of breath. Labs Ordered: CBC, CMP, troponin, INR, PTT, Mag Imaging Ordered: Left shoulder x-ray, chest x-ray Medications Ordered: Toradol 15 mg IV (to treat shoulder pain) Once it was deemed pt was having a STEMI, orders were placed for aspirin 324 mg, heparin bolus, Brilinta Results: Patient's left shoulder x-ray indicates Degenerative disease, without acute fracture or anterior dislocation. Diagnosis: STEMI Risks: HEART score: moderate risk HEART Score for Major Cardiac Events from [email or web address] on 02/09/2025 All calculations should be rechecked by clinician prior to use RESULT SUMMARY: 6 points Moderate Score (4-6 points) Risk of MACE of 12-16.6%. If troponin is positive, many experts recommend further workup and admission even with a low HEART Score. INPUTS: History ?> 0 = Slightly suspicious EKG ?> 1 = Non-specific repolarization disturbance Age ?> 2 = >=5 Risk factors ?> 1 = 1-2 risk factors Initial troponin ?> 2 = >3? normal limit Patient Education/Shared MDM: Results of blood work and EKG shared with patient. She reports mild pain improvement in her L shoulder following Toradol medication administration. Due to patient's left shoulder pain, basic labs, troponin and EKG orders were placed. Patient's troponin came back elevated so a repeat EKG was performed. This EKG was concerning for a STEMI. Multiple Wire Sawyer, Dr Lovelace, was contacted. Photos of patient's EKG were sent to her and she confirmed patient was having an active STEMI. Dr. Lovelace requested patient received Brilinta, aspirin, and heparin bolus. Patient will be prepped for the lab instructor. <Ita Gao APRN - Last Filed: 02/09/25 22:14> Differential Diagnosis Differential diagnosis: Likely dislocation of shoulder, fracture of humerus, fracture of clavicle and other (cardiac-related shoulder pain, STEMI) <Ita Gao APRN - Last Filed: 02/09/25 22:14> Lab Data Attestation: I reviewed the patient's lab results. <Ita Gao APRN - Last Filed: 02/09/25 22:14> Result diagrams: 02/09/25 01:20 02/09/25 00:01 <Ita Gao APRN - Last Filed: 02/09/25 22:14> Labs: Lab Results 02/09/25 02/09/25 Range/Units 00:01 01:20 WBC 13.1 H 14.0 H (4.5-10.0) K/mm3 RBC 3.32 L 3.24 L (4.2-5.4) M/mm3 Hgb 10.3 L 10.0 L (12.0-15.0) g/dL Hct 31.2 L 30.7 L (37.0-47.0) % MCV 94.0 94.8 (80-100) fl MCH 31.0 30.9 (26-34) pg MCHC 33.0 32.6 (32-36) g/dl RDW 12.5 12.6 (11.5-14.5) % Plt Count 294 256 (150-375) k/mm3 MPV 9.6 10.0 (7.4-10.4) fl Immature Gran % (Auto) 0.5 0.6 H (0-0.5) % Neut % (Auto) 74.4 H 75.0 H (45.5-73.1) % Lymph % (Auto) 8.3 L 9.2 L (18.3-44.2) % Mora % (Auto) 15.7 H 14.2 H (2.6-8.5) % Eos % (Auto) 0.7 0.6 (0-4.4) % Baso % (Auto) 0.4 0.4 (0.2-1.2) % Lymph # (Auto) 1.09 1.29 (0.9-3.2) K/mm3 Mora # (Auto) 2.1 H 2.0 H (0.1-0.6) K/mm3 Eos # (Auto) 0.1 0.1 (0-0.3) K/mm3 Baso # (Auto) 0.1 0.1 (0.0-0.1) K/mm3 Abs Immat Gran (auto) 0.07 H 0.08 H (0.00-0.031) K/mm3 Absolute Neuts (auto) 9.8 H 10.5 H (1.3-6.7) K/mm3 Absolute Nucleated RBC 0.000 0.000 (0.0-0.012) K/mm3 Nucleated RBC % 0.0 0.0 (0.0-0.2) % PT 14.1 (11.1-14.7) Seconds INR 1.1 APTT 40.2 H (22.3-36.8) Seconds Sodium 127 L (137-145) mmol/L Potassium 4.3 (3.4-5.0) mmol/L Chloride 92 L (98-107) mmol/L Carbon Dioxide 25 (22-30) mmol/L Anion Gap 10 (4-12) mmol/L BUN 20 H (7-17) mg/dL Creatinine 0.76 (0.7-1.0) mg/dL Estim Creat Clear Calc 43 ml/min Estimated GFR > 60 (59 - ) Glucose 238 H (65-110) mg/dL Hemoglobin A1c 8.3 H (<5.7) % Calcium 8.7 (8.4-10.2) mg/dL Magnesium 2.0 (1.6-2.3) mg/dL Total Bilirubin 0.4 (0.2-1.3) mg/dL AST 111 H (14-36) U/L ALT 76 H (6-35) U/L Alkaline Phosphatase 175 H (38-126) U/L Troponin I 15.800 H* (0.000-0.034) ng/mL Total Protein 7.0 (6.3-8.2) g/dL Albumin 3.8 (3.5-5.1) g/dL Triglycerides 152 H (<150) mg/dL Cholesterol 180 (0-200) mg/dL LDL Cholesterol Direct 93 mg/dL HDL Direct 39 mg/dL <Ita Gao, REAL ESTATE AGENT - Last Filed: 02/09/25 22:14> Lab Results 02/09/25 02/09/25 Range/Units 00:01 01:20 WBC 13.1 H 14.0 H (4.5-10.0) K/mm3 RBC 3.32 L 3.24 L (4.2-5.4) M/mm3 Hgb 10.3 L 10.0 L (12.0-15.0) g/dL Hct 31.2 L 30.7 L (37.0-47.0) % MCV 94.0 94.8 (80-100) fl MCH 31.0 30.9 (26-34) pg MCHC 33.0 32.6 (32-36) g/dl RDW 12.5 12.6 (11.5-14.5) % Plt Count 294 256 (150-375) k/mm3 MPV 9.6 10.0 (7.4-10.4) fl Immature Gran % (Auto) 0.5 0.6 H (0-0.5) % Neut % (Auto) 74.4 H 75.0 H (45.5-73.1) % Lymph % (Auto) 8.3 L 9.2 L (18.3-44.2) % Mora % (Auto) 15.7 H 14.2 H (2.6-8.5) % Eos % (Auto) 0.7 0.6 (0-4.4) % Baso % (Auto) 0.4 0.4 (0.2-1.2) % Lymph # (Auto) 1.09 1.29 (0.9-3.2) K/mm3 Mora # (Auto) 2.1 H 2.0 H (0.1-0.6) K/mm3 Eos # (Auto) 0.1 0.1 (0-0.3) K/mm3 Baso # (Auto) 0.1 0.1 (0.0-0.1) K/mm3 Abs Immat Gran (auto) 0.07 H 0.08 H (0.00-0.031) K/mm3 Absolute Neuts (auto) 9.8 H 10.5 H (1.3-6.7) K/mm3 Absolute Nucleated RBC 0.000 0.000 (0.0-0.012) K/mm3 Nucleated RBC % 0.0 0.0 (0.0-0.2) % PT 14.1 (11.1-14.7) Seconds INR 1.1 APTT 40.2 H (22.3-36.8) Seconds Sodium 127 L (137-145) mmol/L Potassium 4.3 (3.4-5.0) mmol/L Chloride 92 L (98-107) mmol/L Carbon Dioxide 25 (22-30) mmol/L Anion Gap 10 (4-12) mmol/L BUN 20 H (7-17) mg/dL Creatinine 0.76 (0.7-1.0) mg/dL Estim Creat Clear Calc 43 ml/min Estimated GFR > 60 (59 - ) Glucose 238 H (65-110) mg/dL Hemoglobin A1c 8.3 H (<5.7) % Calcium 8.7 (8.4-10.2) mg/dL Magnesium 2.0 (1.6-2.3) mg/dL Total Bilirubin 0.4 (0.2-1.3) mg/dL AST 111 H (14-36) U/L ALT 76 H (6-35) U/L Alkaline Phosphatase 175 H (38-126) U/L Troponin I 15.800 H* (0.000-0.034) ng/mL Total Protein 7.0 (6.3-8.2) g/dL Albumin 3.8 (3.5-5.1) g/dL Triglycerides 152 H (<150) mg/dL Cholesterol 180 (0-200) mg/dL LDL Cholesterol Direct 93 mg/dL HDL Direct 39 mg/dL <Neva Raza MD - Last Filed: 02/10/25 11:03> Imaging Data Attestation: I personally reviewed and interpreted this imaging study as follows: < Ita Gao APRN - Last Filed: 02/09/25 22:14> Radiologist's impression: Impressions Shoulder X-Ray 02/08/25 23:24 IMPRESSION: Degenerative disease, without acute fracture or anterior dislocation. <Ita Gao APRN - Last Filed: 02/09/25 22:14> Discharge Plan Discharge Clinical Impression: STEMI (ST elevation myocardial infarction), Acute pain of left shoulder, Elevated troponin <Ita Gao APRN - Last Filed: 02/09/25 22:14> Patient Disposition: Acute Care Hospital <Ita Gao APRN - Last Filed: 02/09/25 22:14> Condition: Serious <Ita Gao APRN - Last Filed: 02/09/25 22:14>
[2025-02-09] VITALS (17 sets, daily range): BP systolic 84–136; BP diastolic 56–81; PULSE 68–117; RESP 14–25; TEMP 36.6–36.8; O2SAT 94–99; BMI 23.8
[2025-02-09] MEDS: KETOROLAC 15 MG/ML VIAL (*BKC) IV PUSH (00:09)
[2025-02-09 00:12] LABS: Basophils Absolute Auto 0.1 K/mm3 (0.0-0.1); Basophils Percent Auto 0.4 % (0.2-1.2); Eosinophils Absolute Auto 0.1 K/mm3 (0-0.3); Eosinophils Percent Auto 0.7 % (0-4.4); Hematocrit 31.2 % (37.0-47.0); Hemoglobin 10.3 g/dL (12.0-15.0); Immature Granulocyte Absolute 0.07 K/mm3 (0.00-0.031); Immature Granulocyte Percent A 0.5 % (0-0.5); Lymphocytes Absolute Auto 1.09 K/mm3 (0.9-3.2); Lymphocytes Percent Auto 8.3 % (18.3-44.2); Mean Platelet Volume 9.6 fl (7.4-10.4); Monocytes Absolute Auto 2.1 K/mm3 (0.1-0.6); Monocytes Percent Auto 15.7 % (2.6-8.5); Neutrophils Absolute Auto 9.8 K/mm3 (1.3-6.7); Neutrophils Percent Auto 74.4 % (45.5-73.1); Platelet Count Result 294 k/mm3 (150-375); Red Blood Count 3.32 M/mm3 (4.2-5.4); Red Cell Distribution Width 12.5 % (11.5-14.5); White Blood Count 13.1 K/mm3 (4.5-10.0)
[2025-02-09 00:17] LABS: Alanine Aminotransferase 76 U/L (6-35); Albumin Level 3.8 g/dL (3.5-5.1); Alkaline Phosphatase 175 U/L (38-126); Anion Gap 10 mmol/L (4-12); Aspartate Amino Transferase 111 U/L (14-36); Bilirubin,Total 0.4 mg/dL (0.2-1.3); Blood Urea Nitrogen 20 mg/dL (7-17); Calcium 8.7 mg/dL (8.4-10.2); Carbon Dioxide 25 mmol/L (22-30); Chloride 92 mmol/L (98-107); Estimated CRCL calculation 43 ml/min; Estimated Glomerular Filt Rate > 60; Glucose 238 mg/dL (65-110); Potassium 4.3 mmol/L (3.4-5.0); Sodium 127 mmol/L (137-145)
--- NOTE | 2025-02-09 00:34 | ECG_ITS ---
Test Date: 2025-02-09 00:00:07 Measurements Intervals [place] Rate: 75 P: 54 [place]: 197 QRS: 6 QRSD: 116 T: 15 QT: 374 QTc: 420 Interpretive Statements SINUS RHYTHM POSSIBLE LEFT ATRIAL ENLARGEMENT INTRAVENTRICULAR CONDUCTION DELAY BORDERLINE R WAVE PROGRESSION, ANTERIOR LEADS INFERIOR INFARCT, PROBABLY RECENT BASELINE ARTIFACT- I, III, AVL, AVF, V1, V6 ABNORMAL ECG No previous ECG available for comparison Electronically Signed On 02-09-2025 07:07:08 CDT by Panchito Garcia D.O.
[2025-02-09] MEDS: ASPIRIN 81 MG CHEWABLE TABLET 324 MG PO (00:59)
[2025-02-09] MEDS: TICAGRELOR 90 MG TABLET 180 MG PO (01:00)
[2025-02-09] MEDS: HEPARIN SODIUM 5,000 UNITS/ML VIAL 3500 UNITS IV PUSH (01:01)
[2025-02-09 01:25] LABS: Basophils Absolute Auto 0.1 K/mm3 (0.0-0.1); Basophils Percent Auto 0.4 % (0.2-1.2); Eosinophils Absolute Auto 0.1 K/mm3 (0-0.3); Eosinophils Percent Auto 0.6 % (0-4.4); Hematocrit 30.7 % (37.0-47.0); Immature Granulocyte Absolute 0.08 K/mm3 (0.00-0.031); Immature Granulocyte Percent A 0.6 % (0-0.5); Lymphocytes Absolute Auto 1.29 K/mm3 (0.9-3.2); Lymphocytes Percent Auto 9.2 % (18.3-44.2); Mean Corpuscular HGB Conc 32.6 g/dl (32-36); Mean Corpuscular Hemoglobin 30.9 pg (26-34); Mean Corpuscular Volume 94.8 fl (80-100); Monocytes Percent Auto 14.2 % (2.6-8.5); Neutrophils Absolute Auto 10.5 K/mm3 (1.3-6.7); Platelet Count Result 256 k/mm3 (150-375); Red Blood Count 3.24 M/mm3 (4.2-5.4); Red Cell Distribution Width 12.6 % (11.5-14.5)
[2025-02-09 01:30] LABS: INR 1.1; Prothrombin Time 14.1 Seconds (11.1-14.7)
[2025-02-09 01:31] LABS: Partial Thromboplastin Time 40.2 Seconds (22.3-36.8)
--- OUTSIDE RECORDS SUMMARY | 2025-02-09 02:06 | XMS_ITS | Continuity of Care Document ---
Author Organization [facility] Address [address] [place] [address] [place] [address] Phone Care Team Providers Care Insurance Processor Name Role Phone Sridhar Miles Unavailable Unavailable Advance Directives Directive Yes / No Effective Date File Name No Information Encounters Encounter Description Practice Location Reason(s) For Visit Diagnoses Date Provider Providers Copied on Encounter [facility], [address] [place], [place], [id number], [place] tel:[phone] [facility] No Information Jd Waller. [address] [place], [address], [place]. tel:[phone] Family History Family Member Type Diagnosis Age At Onset No Information Payers Payer name Insurance type Covered alliance party ID Authoriza tion(s) No Information Social [...]
--- OUTSIDE RECORDS SUMMARY | 2025-02-09 02:06 | XMS_ITS | Clinical Summary ---
Author Organization [facility] Address [address] [facility] [place] [address] Care Team Providers Care Aircraft Engine Dismantler Name Role Phone Unavailable Primary Care Provider Unavailabl e Source Comments [facility],non-owned Affiliates and Associated Physician Practices is amultiple site organization consisting of ambulatory clinics and hospital sitesin [place], [place], [place] and [place]. This disclosure is being madepursuant to the Care Everywhere program and may not contain all information available regarding this patient. Last updated 18.[facility] Allergies No known active allergies Medications * [...] Personal/Family Self [address] [place] [address]
--- OUTSIDE RECORDS SUMMARY | 2025-02-09 02:06 | XMS_ITS | Encounter Summary ---
Author Organization [facility] Healthcare Address [address] [place] [address] Care Team Providers Care Dance Professor Name Role Phone Jamil Sinclair MD Primary Care Provider [phone] Encounter Details Date Type Department Care Team (Late st Contact Info) Description 12/23/2016 11:45 PM BUILDING MANAGER Hospital Encounter [facility] ADMIT [address] [place], [place] [id number] [place] [address] [facility] [address] [place] [address] Social History Tobacco Use Types [...] on file Legal Sex Female 5:32 PM BUILDING MANAGER Gender Identity Not on file Sexual Orientation [...] Patient: HAWA MORRIS Service Date: 12/24/2016 Account: [id number] Room No: : 1940 Patient Type: IP [...] was terminated and I placed a 4- Latvian x 4 cm stent in the pancreatic [...] Mili Powers MD On 12/25/2016 08:50 AM BUILDING MANAGER Mili Powers M.D. OCO/ams TD: 12/24/2016 19:53 documented in this encounter Plan of Treatment Not on file documented as of this encounter Visit Diagnoses Not on filedocumented in this encounter Care Teams Dance Professor Relationship Specialty [place] [address] [place] [address] PCP - General 12/23/16 02/03/17 documented as of this encounter
--- OUTSIDE RECORDS SUMMARY | 2025-02-09 02:06 | XMS_ITS | Clinical Summary ---
Author Organization [facility] Address [address] [place] [address] Phone Care Team Providers Care Business Technology Architect Name Role Phone Jamil Sinclair MD Primary Care Provider [phone] Allergies Active Allergy Reactions Criticality Noted Date Comments Amoxicillin-Pot Clavulanate Rash Low 09/21/20 17 Azithromycin Rash Low 09/21/2017 Carvedilol Seizure High 03/22/2024 Codeine Nausea and Vomiting High 09/21/2017 Levofloxacin Rash Low 09/21/2017 Nsaids (Non-Steroidal Anti-Inflammatory Drug) Nausea and Vomiting Low 09/21/2017 Sulfa (Sulfonamide Antibiotics) Rash Low 09/07 Medications levothyroxine 112 mcg tablet Take 112 mcg by mouth daily early head start director. Active gabapentin (NEURONTIN) 100 mg capsule Take [...] years Discontinued Medical Devices Implanted Type Area Dynamite Packing Machine Feeder Device Identifier Shelf Expiration Date Model / Serial / Lot Stent Pncrtc Frmn Flx 5fr 5cm 6552 - [id number] Implanted:Qty : 1 on 09/21/2017 by Gregor Lieberman MD at [facility] Stent N/A: Pancreas [employer] [id number] 03/07/2022 6552 / / [id number] Stent Bili Viabil [id number] - [id number] Implanted:Qty : 1 on 09/21/2017 by Gregor Lieberman MD at [facility] Stent N/A: Bile Duct [employer] 05/18/2020 [id number] / [id number] / Procedures Procedure Name Priority Date/Time Associated Diagnosis Comments HEMOGLOBIN A1C Routine 09/22/2017 7:25 AM GENERAL UTILITY MACHINE OPERATOR from Last 3 Months or Most Recently Relevant to Health Maintenance Results * (ABNORMAL) HEMOGLOBIN A1C (09/22/2017 7:25 AM GENERAL UTILITY MACHINE OPERATOR) HEMOGLOBIN A1C 6.6(H) 4.0 - 6.0 % 09/22/2017 4:52 PM GENERAL UTILITY MACHINE OPERATOR [facility] EST. AVG GLUCOSE, A1C 143 mg/dL 09/22/2017 4:52 PM GENERAL UTILITY MACHINE OPERATOR [facility] Blood Collection / Unknown 09/22/2017 7:25 AM GENERAL UTILITY MACHINE OPERATOR 09/22/2017 4:34 PM GENERAL UTILITY MACHINE OPERATOR Gregor Lieberman MD CHEMISTRY ORDERABLES Final R esult [facility] [employer] Residences [facility] CLIA# [id number] [address] [place] [address] from Last 3 Months or Most Recently Relevant to Health Maintenance Insurance MEDICARE PART A AND B BC SUPP Advance Directives For more information, please contact: [phone] * Full Code (Latest Code Status on File) Date Activated Date Inactivated Comments 11/16/2017 2:30 PM 11/16/2017 7:11 PM * Full Code Date Activated Date Inactivated Comments 09/21/2017 2:32 PM 09/23/2017 12:23 PM * Full Code Date Activated Date Inactivated Comments 09/21/2017 8:04 AM 09/21/2017 2:32 PM Care Teams Business Technology Architect Relationship Specialty [place] [address] [facility] [address] [place] [address] PCP - General Internal Medicine 08/19/17
--- OUTSIDE RECORDS SUMMARY | 2025-02-09 02:06 | XMS_ITS | CONTINUITY OF CARE DOCUMENT ---
Author Name damaris ocampo Address Unknown Organization [facility] Address [address] [facility] [address] [place] [address] Phone [phone] Care Team Providers Care Electronic Equipment Set Up Operator Name Role Phone Abdi PATIÑO, Ziggy Unavailable INSURANCE PROVIDERS Payer name Policy type / Coverage type [place] red alliance party ID [employer] Commercial insura dce [facility] [id number] [place] MEDICARE Medicare [id number]
--- OUTSIDE RECORDS SUMMARY | 2025-02-09 02:06 | XMS_ITS | Continuity of Care Document ---
Author Organization [facility] Address [address] [facility] [place] [address] Phone Care Team Providers Care Teacher Home Therapy Name Role Phone Yves Reveles MD Unavailable [...] Diagnoses Date Provider Providers Copied on Encounter [facility] [place], [address] [place], [id number], [place] tel:[phone] [facility] [place] No Information 4 Abdirizak Marinelli. [address] [facility] [place], [address] , [place]. tel:[phone] [facility] [place], [address], [place], [place], [address], [place] tel:[phone] [facility] [place] No Information 4 Abdirizak Marinelli. [address], [address], [place], [place], [address] , [place]. tel:[phone] Referring Provider: Yves Reveles, [address], [place], [place], [address]. tel:[phone] OFFICE/OUTPA TIENT VISIT, EST [facility] [place], [address], [place], [place], [address], [place] tel:[phone] [facility] [place] renal cyst (chief complaint)ost eoprosis (chief complaint)UTI (chief complaint)dani k pain (chief complaint) OsteoporosisCyst ic kidney disease, unspecifiedUrina ry Tract InfectionLumbago Jul- 4 Abdirizak Marinelli. [address], [address], [place], [place], [address] , [place]. tel:[phone] Referring Provider: Yves Reveles, [address], [place], [place], [address]. tel:[phone] [facility] [place], [address], [place], [place], [address], [place] tel:[phone] [facility] [place] Cystic kidney disease, unspecified 4 Abdirizak Marinelli. [address], [place], [place], [address] , [place]. tel:[phone] Referring Provider: Yves Reveles, [address], [place], [place], [address]. tel:[phone] OFFICE/OUTPA TIENT VISIT, EST [facility] [place], [address], [place], [place], [address], [place] tel:[phone] [facility] [place] abdominal pain (chief complaint) Abdominal Pain Jan- 4 Abdirizak Marinelli. [address], [address], [place], [place], [address] , [place]. tel:[phone] Referring Provider: Yves Reveles, [address], [place], [place], [address]. tel:[phone] OFFICE/OUTPA TIENT VISIT, [facility], [address], [place], [place], [address], [place] tel:[phone] [facility] [place] left foot pain (chief complaint) Lesion of plantar nerve 4 Abdirizak Marinelli. [address], [address], [place], [place], [address] , [place]. tel:[phone] Referring Provider: Yves Reveles, [address], [place], [place], [address]. tel:[phone] [facility] [place], [address], [place], [place], [address], [place] tel:[phone] [facility] [place] No Information 3 Abdirizak Marinelli. [address], [address], [place], [place], [address] , [place]. [phone] OFFICE/OUTPA TIENT VISIT, [facility], [address], [place], [place], [address], [place] tel:[phone] [facility] [place] chest pain (chief complaint)DM (chief complaint)ost eoporosis (chief complaint) OsteoporosisDiab etes Mellitus Type 2, UncomplicatedHer editary sensory neuropathyChest Tightness 3 Abdirizak Marinelli. [address], [address], [place], [place], [address] , [place]. [phone] [facility] [place], [address], [place], [place], [address], [place] tel:[phone] [facility] [place] cerumen (chief complaint) Impacted cerumen 3 Abdirizak Marinelli. [address], [address], [place], [place], [address] , [place]. [phone] Referring Provider: Yves Reveles, [address], [place], [place], [address]. tel:[phone] OFFICE/OUTPA TIENT VISIT, [facility], [address], [place], [place], [address], tel:[phone] [facility] [place] osteoporosis (chief complaint)ear pain (chief complaint) OsteoporosisImpa cted cerumenOtalgia, unspecified 3 Abdirizak Marinelli. [address], [place], [place], [address] , [place]. [phone] Referring Provider: Windy Forrester [address], [place], [place], [address]. tel:[phone] OFFICE/OUTPA TIENT VISIT, [facility], [address], [place], [place], [address], [place] tel:[phone] [facility] [place] DM (chief complaint)Hyp othyroidism (chief complaint)dani k pain (chief complaint) Diabetes Mellitus Type 2, UncomplicatedHyp othyroidismHered itary sensory neuropathy 3 Abdirizak Marinelli. [address], [place], [place], [address] , [place]. [phone] Referring Provider: Windy Forrester [facility] [address], [place], [place], [address]. tel:[phone] Family History Family Member Type Diagnosis Age At Onset Father Problem (finding) Coronary artery disease Mother Problem (finding) [facility] Brother Problem (finding) Coronary artery disease Payers [...]
--- OUTSIDE RECORDS SUMMARY | 2025-02-09 02:06 | XMS_ITS | Clinical Summary ---
Author Organization [facility] Address [address] [place] [address] Care Team Providers Care Contract Loader Name Role Phone Magdiel Springer MD Primary [...] Department Care Team Description 11/21/2024 11:15 AM MEDICATION AIDE Office Visit [facility] Orthopedic and Sports Medicine [address] [place] [phone] Tanner Chu PA Primary osteoarthritis of right knee (Primary Dx) 11/21/2024 10:45 AM MEDICATION AIDE Ancillary Procedure [facility] Medical [facility] Imaging at [address] [address] Right knee pain, unspecified chronicity 11/21/2024 10:40 AM MEDICATION AIDE Ancillary Procedure [facility] Imaging at [address] [address] Right knee pain, unspecified chronicity from Last 3 Months Surgical History Surgery Date Site/Laterality Comments TONSILLECTOMY Tonsillectomy OTHER SURGICAL HISTORY Status post ERCP with duodenal perforation with peritonitis Medical History Medical History Date Comments Hypertension Hypertension Diabetes mellitus (HCC) Diabetes Hx Other Medical Not Claustropho bic; Comments: [facility] 07/02/2014 - Hx Other Medical DM, HTN, HLD, v ertigo, tremor, hypothyroidism, ner; Comments: [facility] [place]/03/[place] - Hx Other Medical stroke; Comment s: [facility] [place]/03/2014 - Hx Other Medical endometrial abl ation tonsillectomy foot surgery; Comments: [facility] [place] 12/03/2014 - Thyroid disease TIA (transient ischemic [...] on file Legal Sex Female 5:32 PM MEDICATION AIDE Gender Identity Not on file Sexual Orientation Not on file Obstetrics History Last Filed Vital Signs Vital Sign Reading Time Taken Comments Blood Pressure 126/70 11/21/2024 10:48 AM MEDICATION AIDE Pulse 79 11/21/2024 10:48 AM MEDICATION AIDE Temperature 36.6 C (97.9 F) 09/22/2021 11:13 AM MEDICATION AIDE Respiratory Rate 18 09/22/2021 11:13 AM MEDICATION AIDE Oxygen Saturation 96% 10/07/2021 10:58 AM MEDICATION AIDE Inhaled Oxygen Concentration - - Weight 61.7 kg (136 lb) 11/21/2024 10:48 AM MEDICATION AIDE Height 165.1 cm (5' 5 ) 11/21/2024 10:48 AM MEDICATION AIDE Body Mass Index 22.63 11/21/2024 10:48 AM MEDICATION AIDE Plan of Treatment Health Maintenance Due Date [...] Fall Risk Assessment 09/22/2022 09/22/2021 Influenza Vaccine (Season Ended) 2025 Procedures Procedure Name Priority Date/Time Associated Diagnosis Comments [place] ARTHROCENTESIS ASPIR&/INJ MAJOR JT/BURSA W/O US Routine 11/21/2024 11:15 AM MEDICATION AIDE Primary osteoarthritis of right knee XR KNEE RIGHT 4 OR MORE VIEWS Schedule Routine, Read Routine (OP Routine) 11/21/2024 10:46 AM MEDICATION AIDE Right knee pain, unspecified chronicity XR PELVIS 1 OR 2 VIEWS Schedule Routine, Read Routine (OP Routine) 11/21/2024 10:46 AM MEDICATION AIDE Right knee pain, unspecified chronicity PLASMA LIPID PANEL Routine 10/11/2014 7: 02 AM MEDICATION AIDE from Last 3 Months or Most Recently Relevant to Health Maintenance Results * [place] ARTHROCENTESIS ASPIR&/INJ MAJOR JT/BURSA W/O US (11/21/2024 11:15 AM MEDICATION AIDE) Narrative Kartik Chapa MD - 11/21/2024 11:15 AM MEDICATION AIDE Tanner Chu PA 11/21/2024 11:33 AM Large [...] 4 or More Views (11/21/2024 10:46 AM MEDICATION AIDE) Anatomical Region Laterality Modality Lower Extremities, Knee Right Digital Radiography Narrative 11/21/2024 10:56 AM MEDICATION AIDE Four views of the right knee are [...] 1 or 2 Views (11/21/2024 10:46 AM MEDICATION AIDE) Anatomical Region Laterality Modality Body, Pelvis N/A Digital Radiogra phy Narrative 11/21/2024 10:55 AM MEDICATION AIDE AP pelvis is negative for acute fracture dislocation or osseous lesion. Moderate arthritic changes are noted in bilateral femoral acetabular joints. The left hip demonstrates past surgical fixation of a femoral neck fracture with 3 cannulated screws. Tanner BERRY IMG XR PROCEDURES Final Res ult * (ABNORMAL) Plasma lipid panel (10/11/2014 7:02 AM MEDICATION AIDE) Cholesterol 239(H) 100 - 200 mg/dl HISTORICAL RESULTS Triglycerides 184(H) 10 - 150 mg/dl HISTORICAL RESULTS HDL 48 40 - 59 mg/dl HISTORICAL RESULTS LDL 154(H) 60 - 129 mg/dl HISTORICAL RESULTS Plasma 10/11/2014 7:02 AM MEDICATION AIDE Arnaud Munson II, MD LAB BLOOD ORDERABLES Final R esult HISTORICAL RESULTS from Last 3 Months or Most Recently Relevant to Health Maintenance Insurance MEDICARE [facility] MEDICARE SUPPLEMENT INSURANCE [facility]LY [facility] MEDICARE [facility] MEDICARE [facility] MEDICARE SUPPLEMENT Care Teams Contract Loader Relationship Specialty Start Date End Date Magdiel Springer MD [address] [place] [address] PCP - General Internal Medicine 11/01/24
--- OUTSIDE RECORDS SUMMARY | 2025-02-09 02:06 | XMS_ITS | Referral Summary ---
Author Organization [facility] Address [address] [place] [address] Care Team Providers Care Fiberline Supervisor Name Role Phone Magdiel Springer MD Primary Care Provider Encounters Date Type Department Care Team Description 11/21/2024 10:45 AM COMMISSARY AGENT Ancillary Procedure [facility] Medical [facility] Imaging at [address] [phone] Right knee pain, unspecified chronicity 11/21/2024 10:40 AM COMMISSARY AGENT Ancillary Procedure [facility] Imaging at [address] [phone] Right knee pain, unspecified chronicity 11/21/2024 11:15 AM COMMISSARY AGENT Office Visit [facility] Orthopedic and Sports Medicine [address] [place] [phone] Tanner Chu PA Primary osteoarthritis of right [...] on file Legal Sex Female 5:32 PM COMMISSARY AGENT Gender Identity Not on file Sexual Orientation Not on file Last Filed Vital Signs Vital Sign Reading Time Taken Comments Blood Pressure 126/70 11/21/2024 10:48 AM COMMISSARY AGENT Pulse 79 11/21/2024 10:48 AM COMMISSARY AGENT Temperature 36.6 C (97.9 F) 09/22/2021 11:13 AM COMMISSARY AGENT Respiratory Rate 18 09/22/2021 11:13 AM COMMISSARY AGENT Oxygen Saturation 96% 10/07/2021 10:58 AM COMMISSARY AGENT Inhaled Oxygen Concentration - - Weight 61.7 kg (136 lb) 11/21/2024 10:48 AM COMMISSARY AGENT Height 165.1 cm (5' 5 ) 11/21/2024 10:48 AM COMMISSARY AGENT Body Mass Index 22.63 11/21/2024 10:48 AM COMMISSARY AGENT Plan of Treatment Not on file Procedures Procedure Name Priority Date/Time Associated Diagnosis Comments [place] ARTHROCENTESIS ASPIR&/INJ MAJOR JT/BURSA W/O US Routine 11/21/2024 11:15 AM COMMISSARY AGENT Primary osteoarthritis of right knee XR KNEE RIGHT 4 OR MORE VIEWS Schedule Routine, Read Routine (OP Routine) 11/21/2024 10:46 AM COMMISSARY AGENT Right knee pain, unspecified chronicity XR PELVIS 1 OR 2 VIEWS Schedule Routine, Read Routine (OP Routine) 11/21/2024 10:46 AM COMMISSARY AGENT Right knee pain, unspecified chronicity PLASMA LIPID PANEL Routine 10/11/2014 7: 02 AM COMMISSARY AGENT from Last 3 Months or Most Recently Relevant to Health Maintenance Results * [place] ARTHROCENTESIS ASPIR&/INJ MAJOR JT/BURSA W/O US (11/21/2024 11:15 AM COMMISSARY AGENT) Narrative Kartik Chapa MD - 11/21/2024 11:15 AM COMMISSARY AGENT Tanner Chu PA 11/21/2024 11:33 AM [...] 4 or More Views (11/21/2024 10:46 AM COMMISSARY AGENT) Anatomical Region Laterality Modality Lower Extremities, Knee Right Digital Radiography Narrative 11/21/2024 10:56 AM COMMISSARY AGENT Four views of the right knee [...] 1 or 2 Views (11/21/2024 10:46 AM COMMISSARY AGENT) Anatomical Region Laterality Modality Body, Pelvis N/A Digital Radiogra phy Narrative 11/21/2024 10:55 AM COMMISSARY AGENT AP pelvis is negative for acute fracture dislocation or osseous lesion. Moderate arthritic changes are noted in bilateral femoral acetabular joints. The left hip demonstrates past surgical fixation of a femoral neck fracture with 3 cannulated screws. Tanner BERRY IMG XR PROCEDURES Final Res ult * (ABNORMAL) Plasma lipid panel (10/11/2014 7:02 AM COMMISSARY AGENT) Cholesterol 239(H) 100 - 200 mg/dl HISTORICAL RESULTS Triglycerides 184(H) 10 - 150 mg/dl HISTORICAL RESULTS HDL 48 40 - 59 mg/dl HISTORICAL RESULTS LDL 154(H) 60 - 129 mg/dl HISTORICAL RESULTS Plasma 10/11/2014 7:02 AM COMMISSARY AGENT Arnaud Munson II, MD LAB BLOOD ORDERABLES Final R esult HISTORICAL RESULTS from Last 3 Months or Most Recently Relevant to Health Maintenance Insurance MEDICARE [facility] MEDICARE SUPPLEMENT INSURANCE [facility] MEDICARE [facility] CIGNA TRADITIONAL MEDICARE [facility] MEDICARE SUPPLEMENT Care Teams Fiberline Supervisor Relationship Specialty [place] [address] [place] [address] PCP - General Internal Medicine 11/01/24
--- NOTE | 2025-02-09 03:03 | ECG_ITS ---
Test Date: 2025-02-09 03:16:30 Measurements Intervals Girard Rate: 89 P: 0 CO: 0 QRS: 29 QRSD: 130 T: 107 QT: 361 QTc: 439 Interpretive Statements ATRIAL FIBRILLATION INTRAVENTRICULAR CONDUCTION DELAY WITH CHANGES TO LBBB INFERIOR ST ELEVATION MYOCARDIAL INFARCT- PROBABLY SUBACUTE RECIPROCAL ST DEPRESSION IN HIGH LATERAL LEADS ABNORMAL ECG Compared to ECG 02/09/2025 00:50:04 SINUS RHYTHM NO LONGER PRESENT Electronically Signed On 02-09-2025 07:26:53 CDT by Panchito Garcia D.O.
[2025-02-09 03:20] LABS: Cholesterol 180 mg/dL (0-200); HDL Direct 39 mg/dL; Triglycerides 152 mg/dL (<150)
[2025-02-09 03:23] LABS: Hemoglobin A1C 8.3 % (<5.7)
--- NOTE | 2025-02-09 03:23 | PM.IMHP ---
H&P: HPI History of Present Illness Date/Time: 02/09/25 03:23 Chief Complaint: Left shoulder pain Narrative: Hawa Larson is an 84 year old female with hypertension, type 2 diabetes mellitus who presented to [facility] with left shoulder pain that had been ongoing for the past 4-5 days. Had a recent viral illness and was recovering from that. She reports being very active at home, and denies any injury to her shoulder. No chest pain, shortness of breath. The shoulder pain was intermittent at first but then became progressively worse, therefore, came to ED. In the ED, EKG showed subtle inferior ST elevation. Troponin came back elevated at 15.8. 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 Review of Systems Review of Systems: All systems reviewed & are unremarkable except as noted in HPI and below (HPI) [facility] Past Medical History Medical History Encounter for Papanicolaou smear for cervical cancer screening Screening mammogram, encounter for Injury of left shoulder serratus anterior strain January 2023 Sacral insufficiency fracture Hypercholesterolemia Hypothyroidism Pancreatitis Diverticulitis CVA (cerebral vascular accident) (~2013) Hypertension Diabetes Surgical History Surgical History History of gynecological procedure Endometrial ablation 20 yrs ago History of orthopedic surgery operation on thumb (tindenitis) History of orthopedic surgery Foot operation X 2 14-15 yrs ago History of hysteroscopy D&C x 3 in 40's History of hysteroscopy (07/08/17) hysteroscopy D&C - polypectomy; postmenopausal bleeding , endometrial hypertrophy, endometrial polyp- Benign Hx laparoscopic cholecystectomy Lap Deya with IOC on 07/28/22 History of ERCP (12/23/16) x2 with stents placed and subsequently removed, 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 Social History Social History Smoking status: Never smoker Second hand tobacco smoke exposure: No Alcohol intake: never Substance use: never Substance use type: does not use Do You Feel Safe in your Home?: Yes Lack of Transportation: No Lack of Food: Never True Current Housing: I Have Housing Concerned About Future Housing: No Difficulty Paying Gas/Electric Bills: No Difficulty Paying for Meds: No Currently Unemployed: No Education: High School Diploma/GED Difficulty w/ Childcare or Family Care: No Living arrangements: other Additional living arrangements comments: Occupation/Education: retired Gender identity (if verbalized by the patient): Female Sexual Orientation (if Verbalized by the Patient): Straight or Heterosexual Spiritual care concerns: No Meds Home Medications and Allergies Home Medications ?Medication ?Instructions ?Recorded ?Confirmed ?Type gabapentin 100 mg capsule 100 mg PO BID 05/09/20 10/17/23 History glimepiride 1 mg tablet 1 mg PO QPM 05/09/20 10/17/23 History glimepiride 2 mg tablet 2 mg PO DAILY 05/09/20 10/17/23 History levothyroxine 112 mcg tablet 125 mcg PO DAILY 05/09/20 10/17/23 History (Synthroid) valsartan 320 mg tablet 320 mg PO DAILY 05/09/20 10/17/23 History cetirizine 10 mg capsule (All Day 10 mg PO DAILY 07/09/21 10/17/23 History Allergy (cetirizine)) diclofenac epolamine 1.3 % 1 patch transdermal BID PRN Back 07/09/21 10/17/23 History transdermal 12 hour patch Pain famotidine 40 mg tablet (Pepcid) 40 mg PO BID PRN abdominal pain 15 09/18/21 10/17/23 Rx days #30 tabs carisoprodol 350 mg tablet 350 mg PO BID 07/26/22 10/17/23 History hydralazine 25 mg tablet 25 mg PO BID 07/26/22 10/17/23 History nebivolol 10 mg tablet 10 mg PO DAILY 07/26/22 10/17/23 History estradiol 0.01% (0.1 mg/gram) 1 g vaginal 3XW #42.5 grams 10/17/23 10/17/23 Rx vaginal cream ondansetron HCl 4 mg tablet 4 mg PO Q4H 3 doses #10 tabs 11/01/23 Rx pantoprazole 40 mg tablet,delayed 40 mg PO QAM 30 days #30 tabs 11/01/23 Rx release (Protonix) Allergies Allergy/AdvReac Type Severity Reaction Status Date / Time pentazocine Allergy Severe Unconscious Verified 11/01/23 07:57 codeine AdvReac Intermediate SEVERE Verified 11/01/23 07:57 NAUSEA/VOMITING NSAIDS (Non-Steroidal AdvReac Intermediate NAUSEA AND Verified 11/01/23 07:57 Anti-Inflamma GASTRIC PAIN meperidine AdvReac Mild Nausea Verified 11/01/23 07:57 Vital Signs Vital Signs - 24 hr 02/08/25 22:49 02/08/25 23:00 02/09/25 00:40 Temperature 36.6 C Pulse Rate 80 81 75 Respiratory Rate 14 16 Blood Pressure 123/53 L 130/66 Pulse Oximetry 100 97 Oxygen Delivery Room Air 02/09/25 01:11 Temperature 36.7 C Pulse Rate 75 Respiratory Rate 14 Blood Pressure 117/63 Pulse Oximetry 99 Oxygen Delivery Exam Const: General: comfortable and no acute distress HENMT: Mouth: Yes moist mucous membranes Eyes: General: appearance normal, both eyes and all related structures Sclera: sclerae normal Resp: Effort & Inspection: normal respiratory effort Cardio: Rate: regular rate Rhythm: regular rhythm Skin: General skin exam: normal color Neuro: Speech: normal speech Psych: Mental Status: mental status grossly normal Affect: normal affect H&P: Results Labs Labs: Short CBC 02/09/25 02/09/25 Range/Units 00:01 01:20 WBC 13.1 H 14.0 H (4.5-10.0) K/mm3 Hgb 10.3 L 10.0 L (12.0-15.0) g/dL Hct 31.2 L 30.7 L (37.0-47.0) % Plt Count 294 256 (150-375) k/mm3 BMP 02/09/25 00:01 Sodium 127 L Potassium 4.3 Chloride 92 L Carbon Dioxide 25 BUN 20 H Creatinine 0.76 Glucose 238 H Calcium 8.7 Cardiac Enzymes 02/09/25 Range/Units 00:01 Troponin I 15.800 H* (0.000-0.034) ng/mL Liver Function 02/09/25 Range/Units 00:01 Total Bilirubin 0.4 (0.2-1.3) mg/dL AST 111 H (14-36) U/L ALT 76 H (6-35) U/L Alkaline Phosphatase 175 H (38-126) U/L Albumin 3.8 (3.5-5.1) g/dL Assessment and Plan Assessment and plan (1) STEMI (ST elevation myocardial infarction): Code(s): I21.3 - ST elevation (STEMI) myocardial infarction of unspecified site Status: Acute Plan Proceed with emergent C.
--- NOTE | 2025-02-09 03:29 | P.SEDATION_ITS ---
Moderate Sedation Note-Pt Data Patient Data Diagnosis: STEMI Present Complaint: STEMI Procedure to be performed/Plan: Primary PCI Allergies Allergy/AdvReac Type Severity Reaction Status Date / Time pentazocine Allergy Severe Unconscious Verified 11/01/23 07:57 codeine AdvReac Intermediate SEVERE Verified 11/01/23 07:57 NAUSEA/VOMITING NSAIDS (Non-Steroidal AdvReac Intermediate NAUSEA AND Verified 11/01/23 07:57 Anti-Inflamma GASTRIC PAIN meperidine AdvReac Mild Nausea Verified 11/01/23 07:57 Home Medications ?Medication ?Instructions ?Recorded ?Confirmed ?Type gabapentin 100 mg capsule 100 mg PO BID 05/09/20 10/17/23 History glimepiride 1 mg tablet 1 mg PO QPM 05/09/20 10/17/23 History glimepiride 2 mg tablet 2 mg PO DAILY 05/09/20 10/17/23 History levothyroxine 112 mcg tablet 125 mcg PO DAILY 05/09/20 10/17/23 History (Synthroid) valsartan 320 mg tablet 320 mg PO DAILY 05/09/20 10/17/23 History cetirizine 10 mg capsule (All Day 10 mg PO DAILY 07/09/21 10/17/23 History Allergy (cetirizine)) diclofenac epolamine 1.3 % 1 patch transdermal BID PRN Back 07/09/21 10/17/23 History transdermal 12 hour patch Pain famotidine 40 mg tablet (Pepcid) 40 mg PO BID PRN abdominal pain 15 09/18/21 10/17/23 Rx days #30 tabs carisoprodol 350 mg tablet 350 mg PO BID 07/26/22 10/17/23 History hydralazine 25 mg tablet 25 mg PO BID 07/26/22 10/17/23 History nebivolol 10 mg tablet 10 mg PO DAILY 07/26/22 10/17/23 History estradiol 0.01% (0.1 mg/gram) 1 g vaginal 3XW #42.5 grams 10/17/23 10/17/23 Rx vaginal cream ondansetron HCl 4 mg tablet 4 mg PO Q4H 3 doses #10 tabs 11/01/23 Rx pantoprazole 40 mg tablet,delayed 40 mg PO QAM 30 days #30 tabs 11/01/23 Rx release (Protonix) Current Medications: Active Medications Aspirin (Aspirin 81 Mg Enteric Tablet) 81 mg PO QAM JOSE Atorvastatin Calcium (Atorvastatin 40 Mg Tablet) 40 mg PO DAILY JOSE Heparin Sodium (Porcine) (Heparin Sodium 5,000 Units/Ml Vial) 4,000 units IV PUSH PRN PRN PRN Reason: aPTT less than 55 seconds Heparin Sodium (Porcine) (Heparin Sodium 5,000 Units/Ml Vial) 2,500 units IV PUSH PRN PRN PRN Reason: aPTT 55 - 70 seconds Heparin Sodium/Dextrose (Heparin Sodium/D5w 100 Units/Ml) 25,000 units in 250 mls @ 7 mls/hr IV CONT .Q24H JOSE; Protocol Last Admin: 02/09/25 01:11 Dose: Not Given Perflutren Lipid Microsphere (Perflutren Lipid Microspheres 1.5 Ml Vial Diluted To 10 Ml Total Volume) 0 ml IV PUSH ONCE PRN; Protocol PRN Reason: adequate visualization Stop: 02/12/25 03:04 Sedation/Anesthesia: No previous sedation/anesthesia problems (including family history). [facility] Past Medical History Medical History Encounter for Papanicolaou smear for cervical cancer screening Screening mammogram, encounter for Injury of left shoulder serratus anterior strain January 2023 Sacral insufficiency fracture Hypercholesterolemia Hypothyroidism Pancreatitis Diverticulitis CVA (cerebral vascular accident) (~2013) Hypertension Diabetes Surgical History Surgical History History of gynecological procedure Endometrial ablation 20 yrs ago History of orthopedic surgery operation on thumb (tindenitis) History of orthopedic surgery Foot operation X 2 14-15 yrs ago History of hysteroscopy D&C x 3 in 40's History of hysteroscopy (07/08/17) hysteroscopy D&C - polypectomy; postmenopausal bleeding , endometrial hypertrophy, endometrial polyp- Benign Hx laparoscopic cholecystectomy Lap Deya with IOC on 07/28/22 History of ERCP (12/23/16) x2 with stents placed and subsequently removed, 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 Social History Social History Smoking status: Never smoker Second hand tobacco smoke exposure: No Alcohol intake: never Substance use: never Substance use type: does not use Do You Feel Safe in your Home?: Yes Lack of Transportation: No Lack of Food: Never True Current Housing: I Have Housing Concerned About Future Housing: No Difficulty Paying Gas/Electric Bills: No Difficulty Paying for Meds: No Currently Unemployed: No Education: High School Diploma/GED Difficulty w/ Childcare or Family Care: No Living arrangements: other Additional living arrangements comments: Occupation/Education: retired Gender identity (if verbalized by the patient): Female Sexual Orientation (if Verbalized by the Patient): Straight or Heterosexual Spiritual care concerns: No Mod Sed Physical Exam Physical Exam Pre Procedural Exam: Normal: Appearance, Lungs, Heart Rate, Heart Rhythm, Neuro Exam, Extremities and Skin Hours since solid foods: 0 Hours since liquid intake: 0 Mallampati Classification: class III Internal Medicine - PN: Obj Da Vital Signs Vital Signs: Vital Signs - 24 hr 02/08/25 22:49 02/08/25 23:00 02/09/25 00:40 Temperature 36.6 C Pulse Rate 80 81 75 Respiratory Rate 14 16 Blood Pressure 123/53 L 130/66 Pulse Oximetry 100 97 Oxygen Delivery Room Air 02/09/25 01:11 Temperature 36.7 C Pulse Rate 75 Respiratory Rate 14 Blood Pressure 117/63 Pulse Oximetry 99 Oxygen Delivery Meds/Results Medications: Active Medications Generic Name Dose Route Start Last Admin Trade Name Freq PRN Reason Stop Dose Admin Aspirin 81 mg 02/09/25 09:00 Aspirin 81 Mg Enteric Tablet PO QAM [facility] Atorvastatin Calcium 40 mg 02/09/25 09:00 Atorvastatin 40 Mg Tablet PO DAILY [facility] Heparin Sodium (Porcine) 4,000 units 02/09/25 00:57 Heparin Sodium 5,000 Units/Ml Vial IV PUSH PRN PRN aPTT less than 55 seconds Heparin Sodium (Porcine) 2,500 units 02/09/25 00:57 Heparin Sodium 5,000 Units/Ml Vial IV PUSH PRN PRN aPTT 55 - 70 seconds Heparin Sodium/Dextrose 25,000 units in 250 mls @ 7 mls/hr 02/09/25 01:00 02/09/25 01:11 Heparin Sodium/D5w 100 Units/Ml IV CONT Not Given .Q24H JOSE Protocol 700 UNITS/HR Perflutren Lipid Microsphere 0 ml 02/09/25 03:03 Perflutren Lipid Microspheres 1.5 Ml Vial Diluted To 10 Ml Total Volume IV PUSH 02/12/25 03:04 ONCE PRN adequate visualization Protocol Radiology Results: ITS Impressions Shoulder X-Ray 02/08/25 23:24 IMPRESSION: Degenerative disease, without acute fracture or anterior dislocation. Labs 02/09/25 01:20 02/09/25 00:01 Labs: Laboratory Results - last 24 hr 02/09/25 02/09/25 00:01 01:20 WBC 13.1 H 14.0 H RBC 3.32 L 3.24 L Hgb 10.3 L 10.0 L Hct 31.2 L 30.7 L MCV 94.0 94.8 MCH 31.0 30.9 MCHC 33.0 32.6 RDW 12.5 12.6 Plt Count 294 256 MPV 9.6 10.0 Immature Gran % (Auto) 0.5 0.6 H Neut % (Auto) 74.4 H 75.0 H Lymph % (Auto) 8.3 L 9.2 L [place] % (Auto) 15.7 H 14.2 H Eos % (Auto) 0.7 0.6 Baso % (Auto) 0.4 0.4 Lymph # (Auto) 1.09 1.29 [place] # (Auto) 2.1 H 2.0 H Eos # (Auto) 0.1 0.1 Baso # (Auto) 0.1 0.1 Abs Immat Gran (auto) 0.07 H 0.08 H Absolute Neuts (auto) 9.8 H 10.5 H Absolute Nucleated RBC 0.000 0.000 Nucleated RBC % 0.0 0.0 PT 14.1 INR 1.1 APTT 40.2 H Sodium 127 L Potassium 4.3 Chloride 92 L Carbon Dioxide 25 Anion Gap 10 BUN 20 H Creatinine 0.76 Estim Creat Clear Calc 43 Estimated GFR > 60 Glucose 238 H Hemoglobin A1c 8.3 H Calcium 8.7 Magnesium 2.0 Total Bilirubin 0.4 AST 111 H ALT 76 H Alkaline Phosphatase 175 H Troponin I 15.800 H* Total Protein 7.0 Albumin 3.8 Triglycerides 152 H Cholesterol 180 HDL Direct 39 ASA Classification/Sedation ASA Classification/Sedation ASA Class: IV Emergent: Yes Risks: Risks, benefits and alternatives explained and patient/family accepted plan for sedation. Patient re-evaluated immediately prior to sedation.
--- NOTE | 2025-02-09 03:30 | WPDCARDPROC ---
Cardiac Cath Procedure Note Date of procedure:: 02/09/25 Performing physician:: CATHETERIZATION LABORATORY REPORT Procedure Date: 02/09/2025 Tinsmith Helper: Mari Lovelace M.D., [facility]? Referring Physician: Ita Gao APRN ([facility]) Anesthesia: Versed and Fentanyl were ordered and given in my presence at 02:02, procedure ended at 02:56. Supervision of nurse monitored moderate sedation with Versed and Fentanyl was provided for 54 minutes. Total of Versed 1mg and Fentanyl 50mcg were administered by the Urologist Physician RN Kalina Taylor. Pre-op Diagnosis: Late presentation inferior STEMI Post-op Diagnosis: 1. Late presentation inferior STEMI. Multivessel coronary artery disease involving LAD, Diagonal, OM with 100% occlusion of the distal RCA with [id number] collaterals filling the RPDA/RPLV. Attempted PCI on the RCA, however, unable to re-establish flow in the distal RCA. Given patient was comfortable, chest pain free, hemodynamically stable, and angios showing MVCAD, will get her transferred for consideration of surgical revascularization. 2. Elevated left ventricular end-diastolic pressure of 28mmHg. LV angiogram shows LVEF to be at least moderately reduced, hypokinesis of the inferior wall, mitral regurgitation. Procedure(s): 1. Moderate sedation 2. Ultrasound-guided access of the right common femoral artery 3. Coronary angiography 4. Left heart cath 5. Left ventricular angiogram 6. Attempted PCI of the distal RCA, balloon angioplasty 7. Angioseal closure of the right common femoral artery Access Site: Right common femoral artery Brief History and Clinical Indications: Patient is an 84 year old female who is referred for emergent cardiac catheterization for inferior STEMI. All risks, benefits and alternatives to left heart catheterization with or without percutaneous coronary intervention was discussed at length with the patient. Risk of complications including but not limited to bleeding, infection, arrhythmia, stroke, worsening kidney function, blood loss, groin hematoma, limb loss, emergency coronary artery bypass grafting, and even were discussed with the patient and all questions were answered. The patient understood and wished to proceed. Time out called, patient name, date of , medical record number, allergies, procedure performed, identify Tinsmith Helper, patient and staff member concurred with accurate data, procedure carried on. Findings: LEFT HEART CATHETERIZATION FINDINGS: 1. Left main: The left main coronary artery is widely patent without any significant obstructive disease. 2. Left anterior descending: Calcifications seen in the proximal LAD. The proximal LAD has mild disease. The mid portion has an angiographically moderate stenosis followed by tandem 90-99% stenoses in the mid-distal LAD. The first diagonal branch is a small caliber vessel, but long, with 80-90% stenoses in the proximal and mid portion. 3. Left circumflex: There is an OM branch with tortuosity in the proximal portion followed immediately by a 90-99% stenosis. 4. Right coronary artery: The RCA is the dominant vessel. The RCA is heavily calcified. The proximal-mid portion has 70% stenosis. The mid portion has a moderate 60% stenosis. The distal portion has a 100% occlusion. There are [id number] collaterals supplying the RPDA/RPLV. 5. Left ventricle: A. End-diastolic pressure 28 mmHg. B. LV gram: LVEF to be at least moderately reduced, hypokinesis of the inferior wall, mitral regurgitation. C. No significant gradient across aortic valve on catheter pullback. Description of Procedure: Informed consent signed and placed in the chart. Patient transferred to orthodontic lab technician room. Prepped and draped in usual sterile fashion. 2% lidocaine in right groin area. Micropuncture needle used to access right common femoral artery with Seldinger technique under fluoroscopic and ultrasound guidance. J wire advanced, micropuncture cannula placed. Right iliofemoral angiogram performed, access confirmed and micropuncture cannula exchanged for 6-FR sheath. 5F FL 4 diagnostic catheter engaged Left Main Coronary Artery. 5F FR 4 diagnostic catheter engaged Right Coronary Artery. Multiple orthogonal angiogram obtained and reviewed Decided to attempt PCI to the RCA. Angiomax was administered for anticoagulation. 6F FR 4 guide catheter was used to intubate the RCA. 0.014 [place] coronary wire was passed in to the distal RCA. Attempted to pre-dilated the lesion with a 2.0mm x 15mm balloon. After multiple attempts, there was some very mild antegrade flow, but the distal vessel remained occluded. Intracoronary NTG was administered. Unable to advance the balloon further past the occlusion. Attempted with a 1.25mm x 15mm balloon, but that did not cross the lesion either. At this point, unable to re-establish flow into the distal RCA despite multiple attempts. Given patient was comfortable, hemodynamically stable, and angios showing MVCAD, will get her transferred for consideration of surgical revascularization. Coronary wire and guide-catheter were removed No angiographic complications identified. 5F Pigtail diagnostic catheter crossed aortic valve to obtain LVEDP, LV angiogram obtained. Hemostasis was achieved by 6F Angioseal. Disposition: ICU Plan: Unable to re-establish flow into the distal RCA despite multiple attempts. Given patient was comfortable, chest pain free, hemodynamically stable, and angios showing MVCAD, will get her transferred for consideration of surgical revascularization. Recommendations and plan was discussed with ICU Physician. ? Mari Lovelace M.D. Interventional Cardiology
[2025-02-09 03:31] LABS: LDL Cholesterol Direct 93 mg/dL
--- NOTE | 2025-02-09 03:54 | ADMGEN ---
This patient, Hawa Larson, was admitted to -. Patient/family oriented to hospital policies and general routines including ID bracelet, bed and alarms, visiting hours, pain management, procedures, bathroom and other care routines, personal items, smoking policy, room service/diet, and visiting hours. Information on how to activate the Rapid Response Team has been discussed. Patient/Family are encouraged to report perceived risks to care and to ask questions if they do not understand what they are told or what they should do.
[2025-02-09] MEDS: METOPROLOL TARTRATE 50 MG TAB PO (04:44)
[2025-02-09] MEDS: AMIODARONE 150 MG/D5W 100 ML 150 MG/100 ML BAG 600 MG IV CONT (04:45)
[2025-02-09] MEDS: AMIODARONE 360 MG/D5W 200 ML 360 MG/200 ML BAG 33.33 MG IV CONT (04:46)
[2025-02-09 04:58] LABS: Influenza A QL RT-PCR Negative (Negative); Influenza B QL RT-PCR Negative (Negative); RSV RNA, RT-PCR Negative (Negative); SARS-CoV-2 RNA PCR Negative (Negative)
[2025-02-09 05:32] LABS: MRSA (PCR) NOT DETECTED (NOT DETECTE)
[2025-02-09] MEDS: HEPARIN SOD/D5W 100 UNITS/ML 25,000 UNITS/250 ML BAG 7 UNITS IV CONT (05:57)
[2025-02-09] MEDS: NITROGLYCERIN SL 0.4 MG TABLET SUBLINGUAL (07:25)
--- NOTE | 2025-02-09 09:06 | PM.TDS ---
Transfer Discharge Sum: Prov Provider Date of admission: 02/09/25 03:15 Primary care physician: Magdiel Springer, Admitting clinician: Mari Lovelace MD Attending physician on admission: Mari Lovelace Attending physician on discharge: Mari Lovelace Discharging clinician: Mari Lovelace Anticipated date of transfer: 02/09/25 Receiving physician/facility: [facility] DS: Admitting Diagnosis Discharge Date 02/09/25 Admitting Diagnosis Late presentation STEMI Transfer Discharge Sum: Med Medications Active and Home Medications: Home Medications gabapentin 100 mg capsule 100 mg PO BID 05/09/20 [History Confirmed 02/09/25] glimepiride 2 mg tablet 2 mg PO BID 05/09/20 [History Confirmed 02/09/25] levothyroxine 112 mcg tablet (Synthroid) 125 mcg PO DAILY 05/09/20 [History Confirmed 02/09/25] valsartan 320 mg tablet 320 mg PO DAILY 05/09/20 [History Confirmed 02/09/25] cetirizine 10 mg capsule (All Day Allergy (cetirizine)) 10 mg PO DAILY 07/09/21 [History Confirmed 02/09/25] diclofenac epolamine 1.3 % transdermal 12 hour patch 1 patch transdermal BID PRN Back Pain 07/09/21 [History Confirmed 02/09/25] famotidine 40 mg tablet (Pepcid) 40 mg PO BID PRN abdominal pain 15 days #30 tabs 09/18/21 [Rx Confirmed 02/09/25] carisoprodol 350 mg tablet 350 mg PO BID 07/26/22 [History Confirmed 02/09/25] hydralazine 25 mg tablet 25 mg PO BID 07/26/22 [History Confirmed 02/09/25] nebivolol 10 mg tablet 10 mg PO DAILY 07/26/22 [History Confirmed 02/09/25] estradiol 0.01% (0.1 mg/gram) vaginal cream 1 g vaginal 3XW #42.5 grams 10/17/23 [Rx Confirmed 02/09/25] ondansetron HCl 4 mg tablet 4 mg PO Q4H 3 doses #10 tabs 11/01/23 [Rx Confirmed 02/09/25] cholecalciferol (vitamin D3) 25 mcg (1,000 unit) tablet (Vitamin D3) 5,000 unit PO DAILY 02/09/25 [History Confirmed 02/09/25] vitamin E 268 mg (400 unit) capsule 536 mg PO DAILY 02/09/25 [History Confirmed 02/09/25] Transfer Discharge Sum: Hosp Hospital Course Hospital course: Late presentation inferior STEMI. Multivessel coronary artery disease involving LAD, Diagonal, OM with 100% occlusion of the distal RCA with [id number] collaterals filling the RPDA/RPLV. Attempted PCI on the RCA, however, unable to re-establish flow in the distal RCA. Given patient was comfortable, chest pain free, hemodynamically stable, and angios showing MVCAD, will get her transferred for consideration of surgical revascularization. Time Spent with Patient Time attestation: Total time spent providing and/or coordinating transfer services: Exam Narrative: See H&P noted dated on same date
== END 2025-02-09 07:35 | disposition short-term general hospital (02) | DRG 251 ==
LOC: ANHED 23:18 → ANHCATHLAB 02-09 02:03 → ANHICU 02-09 04:20
PROVIDERS: Student in an Organized Health Care Education/Training Program; Admitting Provider Internal Medicine; Emergency Provider Registered Nurse; PCP Internal Medicine; Visit Provider Internal Medicine
PROC: 4A023N7 Measurement of Cardiac Sampling and Pressure, Left Heart, Percutaneous Approach (ICD-10-PCS; CPT 93452; principal; 2025-02-09 01:20)
PROC: 02703ZZ Dilation of Coronary Artery, One Artery, Percutaneous Approach (ICD-10-PCS; CPT 92920; 2025-02-09 01:20)
PROC: 4A023N7 Measurement of Cardiac Sampling and Pressure, Left Heart, Percutaneous Approach (ICD-10-PCS; 2025-02-09 01:20)
DX: I21.19 ST elevation (STEMI) myocardial infarction involving other coronary artery of inferior wall (principal); I25.10 Atherosclerotic heart disease of native coronary artery without angina pectoris; E03.9 Hypothyroidism, unspecified; E11.9 Type 2 diabetes mellitus without complications; I10 Essential (primary) hypertension; Z79.84 Long term (current) use of oral hypoglycemic drugs; Z20.822 Contact with and (suspected) exposure to COVID-19; Z86.73 Personal history of transient ischemic attack (TIA), and cerebral infarction without residual deficits; Z90.49 Acquired absence of other specified parts of digestive tract; Z90.89 Acquired absence of other organs
CPT/HCPCS: 36415; 71045; 73030; 80053; 80061; 83036; 83735; 84484; 85025; 85610; 85730; 87637; 87641; 92920; 93005; 93458; 96374; 96375; 99285; A9270; C1725; C1760; C1769; C1887; C1894; G0269; J0282; J0583; J1644; J1885; J2003; J2250; J2305; J3010; J7040